=== PATIENT | female | born 1955 | race Caucasian/White ===

== ENCOUNTER 2018-08-02 18:51 | Emergency (ER) | payer BC ==
[2018-08-02 20:58] LABS: ABSOLUTE EOSINOPHILS # (AUTO) 0.1 10^3/uL (0.0-0.6); ABSOLUTE LYMPHOCYTES (AUTO) 1.9 10^3/uL (0.5-4.7); ABSOLUTE MONOCYTES (AUTO) 0.5 10^3/uL (0.1-1.4); ABSOLUTE NEUT (AUTO) 4.7 10^3/uL (1.7-8.2); BASOPHILS % (AUTO) 0.7 % (0-2); EOSINOPHILS % (AUTO) 1.5 % (0-6); HEMOGLOBIN 12.8 g/dL (12.0-15.5); LYMPHOCYTES % (AUTO) 25.9 % (13-45); MEAN CORPUSCULAR HEMOGLOBIN 33.7 pg (27.0-33.4); MEAN CORPUSCULAR HGB CONC 34.7 g/dL (32.0-36.0); MEAN CORPUSCULAR VOLUME 97 fl (80-97); MONOCYTES % (AUTO) 6.8 % (3-13); PLATELET COUNT 325 10^3/uL (150-450); RED BLOOD COUNT 3.81 10^6/uL (3.72-5.28); RED CELL DISTRIBUTION WIDTH 13.6 % (11.5-14.0); SEGMENTED NEUTROPHILS % (AUTO) 65.1 % (42-78); TOTAL CELLS COUNTED % (AUTO) 100 %; WHITE BLOOD COUNT 7.3 10^3/uL (4.0-10.5)
[2018-08-02] MEDS ORDERED: LIDOCAINE 5% (700 MG) TRANSDERMAL ADH..PATCH TP ONE (21:14)
[2018-08-02] MEDS ORDERED: ACETAMINOPHEN 325 MG TABLET PO ONE (21:14)
[2018-08-02] MEDS ORDERED: DEXAMETHASONE 4 MG TABLET PO ONE (21:14)
[2018-08-02 21:15] LABS: ANION GAP 7 (5-19); BLOOD UREA NITROGEN 15 mg/dL (7-20); CALCIUM 9.4 mg/dL (8.4-10.2); CARBON DIOXIDE 29 mmol/L (22-30); CHLORIDE 104 mmol/L (98-107); GLUCOSE 105 mg/dL (75-110); SODIUM 140.3 mmol/L (137-145)
[2018-08-02] MEDS ORDERED: ALBUTEROL SULFATE HFA (90 MCG/PUFF) 200 PUFF/8.5 GM MDI IH ONE (21:15)
[2018-08-02] MEDS ORDERED: IPRATROPIUM/ALBUTEROL 0.5-2.5 MG/3 ML AMPUL NEB ONE (21:15)
--- NOTE | 2018-08-02 21:19 | RADIOLOGY REPORT (SQ) ---
XR CHEST 2 VIEWS HISTORY: Shortness of breath. COMPARISON: None. FINDINGS: Cardiomediastinal silhouette is unremarkable. The lungs are clear. No pleural effusion or pneumothorax is identified. No acute osseous findings. IMPRESSION: No acute cardiopulmonary abnormality.
--- NOTE | 2018-08-02 21:20 | ER Document Report ---
ED General - General Chief Complaint: Shortness Of Breath Stated Complaint: SHORTNESS OF BREATH Time Seen by Provider: 08/02/18 20:36 Notes: Patient is a 62-year-old female with a past medical history of hypertension who presents with complaints of approximately 1 week of cough as well as 2-3 days of right sided chest wall pain. She states that she fell while coming inside carrying groceries 2 days ago landing directly on her right chest. She states that since that time she has had a throbbing, aching, constant pain to her right lower ribs that is worsened whenever she last, coughs or takes a deep breath. She states this does feel similar to when she has had rib fractures in the past. She states that she feels like her breathing has become more labored and that she has developed some shortness of breath since the injury due to it feeling like she is unable to take a full deep breath secondary to pain. She has not had any hemoptysis. She denies any unilateral leg swelling. No history of DVT or pulmonary embolus. She does not have a diagnosis of COPD or asthma. She has tried Tylenol for improvement without relief. She has not seen her general doctor regarding today's concerns. She denies trauma to the location during her fall. TRAVEL OUTSIDE OF THE [place] IN LAST 30 DAYS: No - Related Data Allergies/Adverse Reactions: bacitracin [Bacitracin] Allergy (Intermediate, Verified 03/25/15 07:57) Sulfa (Sulfonamide Antibiotics) Allergy (Intermediate, Verified 03/25/15 07:57) Past Medical History - General Information source: Patient - Social History Smoking Status: Current Every Day Smoker Frequency of alcohol use: None Drug Abuse: None Lives with: Family Family History: Reviewed & Not Pertinent Patient has suicidal ideation: No Patient has homicidal ideation: No - Past Medical History Cardiac Medical History: Reports: Hx Hypercholesterolemia, Hx Hypertension Renal/ Medical History: Denies: Hx Peritoneal Dialysis Musculoskeletal Medical History: Reports Hx Arthritis, Reports Hx Musculoskeletal Deformity, Reports Hx Musculoskeletal Trauma Skin Medical History: Reports Hx Cellulitis Traumatic Medical History: Reports: Hx Fractures - femur Past Surgical History: Reports: Hx Cholecystectomy, Hx Hysterectomy, Hx Orthopedic Surgery - left hip, left knee, femur - Immunizations Immunizations up to date: Yes Hx Diphtheria, Pertussis, Tetanus Vaccination: Yes Review of Systems - Review of Systems Notes: Constitutional: Negative for fever. HENT: Negative for sore throat. Eyes: Negative for visual changes. Cardiovascular: Negative for chest pain. Respiratory: Positive for shortness of breath and cough Gastrointestinal: Negative for abdominal pain, vomiting or diarrhea. Genitourinary: Negative for dysuria. Musculoskeletal: Positive for right lower rib injury Skin: Negative for rash. Neurological: Negative for headaches, weakness or numbness. 10 point ROS negative except as marked above and in HPI. Physical Exam - Vital signs Vitals: Temp Pulse Resp BP Pulse Ox 97.6 F 87 18 138/85 H 97 08/02/18 19:07 08/02/18 19:07 08/02/18 19:07 08/02/18 19:07 08/02/18 19:07 Interpretation: Normal Notes: PHYSICAL EXAMINATION: GENERAL: Appears moderately uncomfortable but in no acute distress HEAD: Atraumatic, normocephalic. EYES: Pupils equal round and reactive to light, extraocular movements intact, sclera anicteric, conjunctiva are normal. ENT: nares patent, oropharynx clear without exudates. Moist mucous membranes. NECK: Normal range of motion, supple without lymphadenopathy LUNGS: Breath sounds clear to auscultation bilaterally and equal. Faint scattered respiratory wheezing throughout. Chest wall: Pain on palpation of the right lower ribs without deformity or swelling to the area HEART: Regular rate and rhythm without murmurs ABDOMEN: Soft, nontender, normoactive bowel sounds. No guarding, no rebound. No masses appreciated. EXTREMITIES: Normal range of motion, no pitting or edema. No cyanosis. NEUROLOGICAL: No focal neurological deficits. Moves all extremities spontaneously and on command. PSYCH: Normal mood, normal affect. SKIN: Warm, Dry, normal turgor, no rashes or lesions noted. Course - Re-evaluation Re-evalutation: 08/02/18 21:16 Patient presents with right lower rib pain with coughing and movement after she fell on the area 2 days ago and directly struck her chest. She has also been coughing for the past 1 week with what appears to be an acute bronchitis. Concern for possible underlying rib fractures versus rib contusions. X-ray without evidence of pneumothorax. Patient does not have clinical symptoms to suggest an acute pneumonia. She does have scattered wheezing on exam and has been treated with a duo nebulizer. She has also been started with dexamethasone here in the emergency department. Lidoderm patch and Tylenol to the lower ribs for pain control. Incentive spirometer already available to the patient at home. Laboratories otherwise unremarkable. Clinical history and exam are not consistent with an acute pulmonary embolus or ACS. Patient is appropriate for outpatient management of her likely viral induced persistent cough as well as her chest wall discomfort from falling and bruising her ribs. At this time will discharge with return precautions and follow-up recommendations. Verbal discharge instructions given a the bedside and opportunity for questions given. Medication warnings reviewed. Patient is in agreement with this plan and has verbalized understanding of return precautions and the need for primary care follow-up in the next 24-72 hours. - Vital Signs Vital signs: Temp Pulse Resp BP Pulse Ox 97.6 F 87 20 144/90 H 98 08/02/18 19:07 08/02/18 19:07 08/02/18 21:55 08/02/18 21:55 08/02/18 21:55 - Laboratory Result Diagrams: 08/02/18 20:49 08/02/18 20:49 Laboratory results interpreted by me: 08/02/18 20:49 MCH 33.7 H - Diagnostic Test Radiology reviewed: Image reviewed, Reports reviewed Radiology results interpreted by me: 08/02/18 21:17 Chest x-ray: No apparent rib fractures or acute infiltrates. No pneumothorax. - EKG Interpretation by Me Additional EKG results interpreted by me: 08/02/18 21:20 Sinus rhythm. Rate 84. No ST elevations or depressions. QTC is 450. Discharge - Discharge Clinical Impression: Right-sided chest wall pain, Rib injury, Persistent cough, Bronchitis Condition: Good Disposition: HOME, SELF-CARE Additional Instructions: Your chest wall pain is due to bruising of your ribs. This pain can last for up to 6 weeks. It is very important that you continue to take purposeful deep breaths. For your pain: Continue to take Tylenol 1000 mg every 6 hours. Use morphine for breakthrough pain not controlled by Tylenol. Apply lidocaine patches as prescribed. Please use the incentive spirometer hourly while awake at home. Follow-up with your primary care doctor in the next 2-3 days. Return to the emergency department immediately if you develop worsening shortness of breath, increased pain, begin coughing blood, pass out, or have any other symptoms that are worrisome to you. You were seen for symptoms most consistent with bronchitis. This can take up to 12 weeks to fully resolve. This is generally due to a viral infection. Please follow-up with your primary doctor in the next 2-3 days. Return if you develop worsening cough, vomiting, fever >100.4, pass out, begin coughing blood, or have any other symptoms that are concerning to you. Please use the medications prescribed today as directed. Prescriptions: Morphine Sulfate [Morphine Ir 15 mg Tablet] 15 mg PO Q6HP PRN #8 tablet PRN Reason: Lidocaine [Lidoderm 5% (700 mg) Transdermal Patch] 1 patch TP DAILY #30 adh..patch Referrals: LUIS ARMANDO JOSEPH MD [Primary Care Provider] - Follow up as needed
[2018-08-02 21:58] VITALS: BP 144/90
--- NOTE | 2018-08-03 13:59 | EKG REPORT ---
SEVERITY:- ABNORMAL ECG - SINUS RHYTHM LVH BY VOLTAGE PROBABLE INFARCT, AGE INDETERMINATE : Confirmed by: Yasmine Alex MD 03-Aug-2018 13:58:51
== END 2018-08-02 22:22 | disposition home or self-care (01) ==
LOC: ER 18:51
DX: S20.20XA Contusion of thorax, unspecified, initial encounter (principal); W19.XXXA Unspecified fall, initial encounter; Y93.89 Activity, other specified; J40 Bronchitis, not specified as acute or chronic; R07.89 Other chest pain; R06.2 Wheezing; R06.02 Shortness of breath; R05 Cough; I10 Essential (primary) hypertension; F17.200 Nicotine dependence, unspecified, uncomplicated; Z88.1 Allergy status to other antibiotic agents; Z88.2 Allergy status to sulfonamides
CPT/HCPCS: 93005; 94640; 99285; 36415; 85025; 80048; 84484; 71046; 93010; J3490; J7620

== ENCOUNTER → 2018-10-24 | Outpatient (CLI) | payer BC ==
--- NOTE | 2018-10-24 13:01 | RADIOLOGY REPORT (SQ) ---
EXAM DESCRIPTION: CT SINUSES FOR ENT COMPLETED DATE/TIME: 10/24/2018 7:53 am REASON FOR STUDY: CHRONIC SINUSITIS (J32.9) J32.9 CHRONIC SINUSITIS, UNSPECIFIED COMPARISON: None. TECHNIQUE: Noncontrast scanning through the paranasal sinuses using bone algorithm. Reconstructed MPR images reviewed. All images stored on PACS. Images acquired for image guided surgery. All CT scanners at this facility use dose modulation, iterative reconstruction, and/or weight based d osing when appropriate to reduce radiation dose to as low as reasonably achievable (ALARA). [facility]: Dose Right [facility]: CareDose [facility]: Dose Right [facility]: Teradose 4D [facility]: Paradigm RADIATION DOSE: 47 mGy. FINDINGS: NASAL PASSAGES: Clear. No polyps or masses. OSTEOMEATAL UNITS AND NASOFRONTAL DUCTS: On the right side, the maxillary sinus outlet occluded by mu cous membrane thickening. The left maxillary outlet is patent. No Misty cells. MAXILLARY SINUSES: Right maxillary sinus and maxillary outlet are occluded by fluid/ mucous membrane thickening. Left maxillary sinus and maxillary sinus outlet are unremarkable. ETHMOID SINUSES: Well pneumatized. Mild mucous membrane thickening in the anterior ethmoid air cells bilaterally SPHENOID SINUSES: Well-pneumatized and clear. No sphenoethmoid air cells or pneumatized pterygoid rec ess. No pneumatized dorsal sella. FRONTAL SINUSES: Well pneumatized. Mucous membrane thickening in the posterior aspect left frontal s inus axial image 116. MASTOID AIR CELLS: Clear. ORBITS: Normal and symmetrical. NASAL SEPTUM: Midline. No nasal septal spurs. TEMPOROMANDIBULAR JOINTS: Moderate osteoarthritis at both temporomandibular joints right greater than left TURBINATES: Partially pneumatized right middle turbinate. MUCOPERIOSTEAL THICKENING: No. MUCOCELE: No. OTHER: No other significant findings. IMPRESSION: Right maxillary sinusitis TECHNICAL DOCUMENTATION: JOB ID: [id number] Quality ID # [id number]: Final reports with documentation of one or more dose reduction techniques (e.g., Au tomated exposure control, adjustment of the mA and/or kV according to patient size, use of iterative reconstruction technique) 2010 [employer]- All Rights Reserved Reading location - IP/workstation name: [email or web address]
== END ==
LOC: RAD 07:07
PROVIDERS: ATTEND Otolaryngology
DX: J32.9 Chronic sinusitis, unspecified (principal)
CPT/HCPCS: 70486

== ENCOUNTER 2018-11-25 09:04 | Day surgery (SDC) | payer BC ==
[~2018-11-25 09:04] MED LIST: CEFAZOLIN 2 GM/D5W RTU 2 GM/50 ML RTUPB IV PRN
[2018-11-25] MEDS ORDERED: OXYMETAZOLINE HCL 0.05% NASAL SPRAY 15 ML BOTTLE ONE (10:19)
[2018-11-25] MEDS ORDERED: BACITRACIN ZINC OINTMENT 15 GM ONE (10:19)
[2018-11-25] MEDS ORDERED: COCAINE HCL 4% TOPICAL SOLN 4 ML ONE (10:19)
[2018-11-25] MEDS ORDERED: LIDOCAINE 2%/EPINEPHRINE INJ 1.7 ML CARTRIDGE ONE ×2 (10:20→11:29)
[2018-11-25] MEDS ORDERED: PROPOFOL INJ 200 MG/20 ML VIAL IV ONE (10:22)
[2018-11-25] MEDS ORDERED: DEXAMETHASONE SOD PHOS INJ 10 MG/1 ML VIAL ONE (10:22)
[2018-11-25] MEDS ORDERED: MIDAZOLAM 2 MG/2 ML INJ ONE (10:22)
[2018-11-25] MEDS ORDERED: FENTANYL CITRATE INJ/PF 100 MCG/2 ML AMPUL ONE ×2 (10:22→10:24)
[2018-11-25] MEDS ORDERED: ONDANSETRON HCL INJ/PF 4 MG/2 ML SDV ONE (10:22)
[2018-11-25] MEDS ORDERED: SUCCINYLCHOLINE CHLORIDE INJ 200 MG/10 ML VIAL ONE (10:23)
[2018-11-25] MEDS ORDERED: ROCURONIUM BROMIDE INJ 50 MG/5 ML VIAL IV ONE (10:23)
[2018-11-25] MEDS ORDERED: LIDOCAINE 2%/EPINEPHRINE INJ 20 ML VIAL ONE (11:29)
[2018-11-25] MEDS ORDERED: TRIAMCINOLONE ACETONIDE INJ 40 MG/1 ML VIAL ONE (12:11)
[2018-11-25] MEDS: TRIAMCINOLONE ACETONIDE INJ 40 MG/1 ML VIAL ONE ×2 (12:24)
--- NOTE | 2018-11-25 13:23 | SURGICARE OPERATIVE REPORT E ---
[facility] NAME: ONIEL AVILA AGE: 62Y DATE OF SURGERY: 11/25/2018 ROOM: HISTORY: A 62-year-old female with a history of chronic sinusitis, mainly involving the right side. A CT scan was obtained which showed total opacification of the right maxillary sinus and anterior ethmoid. Patient presents today for endoscopic sinus surgery. Informed consent was obtained from the patient. PREOPERATIVE DIAGNOSIS: CHRONIC SINUSITIS. POSTOPERATIVE DIAGNOSIS: CHRONIC SINUSITIS. OPERATION: 1. Nasal endoscopy. 2. Right maxillary antrostomy. 3. Right anterior ethmoidectomy. SURGEON: PEG BRINK MD ANESTHESIA: General via endotracheal intubation. DESCRIPTION OF PROCEDURE: After receiving informed consent from the patient, she was taken to the operating room and placed supine on the operating room table. After successful induction intubation by anesthesia, pledgets soaked with 4% cocaine placed into each nasal cavity for approximately 5 minutes, after which time they were withdrawn. The nasal septum along with the inferior turbinates and middle turbinate on that right side was injected with 2% Xylocaine and 100,000 epinephrine. Pledgets were replaced. Patient was prepped and draped in a sterile fashion. The image guidance system was used and calibrated to the patient and was found to be functioning normally. Next, the pledgets were withdrawn from the right nasal cavity and under endoscopic guidance the lateral nasal wall and middle turbinate were injected with 2% Xylocaine and 100,000 epinephrine. Next, using a [place] elevator, the middle turbinate was medialized. The uncinate process was identified. A seeker was placed into the infundibulum. The uncinate process was displaced anteriorly. A Sickle knife was used to then make an incision into the uncinate process. This was removed with the Blakesley forceps and microdebrider. Next, using the olive tip, entrance was gained into the maxillary sinus. Mucopurulent material was suctioned from the maxillary sinus. Back biters were used to extend the antrostomy anterior and then the antrostomy was widened in an inferior posterior direction using the microdebrider. The maxillary sinus mucosa was edematous and erythematous. Next, using Blakesley forceps an anterior ethmoidectomy was performed. The maxillary sinus was then irrigated out with a vortex irrigation. It was then viewed and all of the mucopurulent was removed from that maxillary sinus. Next, the Sickle knife was used to freshen the edges on the medial surface of the middle turbinate and also on the septum to allow that middle turbinate to adhere to the nasal septum. An absorbable pack was then placed into the middle meatus and this was infiltrated with approximately 2 mL of Kenalog 40. The patient was then given back to Anesthesia who successfully extubated the patient without any complications. Patient then transferred to Postanesthesia Care unit in stable condition, spontaneous respirations, no complications. ESTIMATED BLOOD LOSS: About 20 mL. FLUIDS: About 500 mL crystalloid. DICTATING PHYSICIAN: PEG BRINK M.D. [id number] PHY#: [id number] ID: [id number] JOB#: [id number] ACCT: [id number] cc:PEG BRINK MD >
== END 2018-11-25 13:37 | disposition home or self-care (01) ==
LOC: SC 09:04
PROVIDERS: ATTEND Otolaryngology
DX: J32.0 Chronic maxillary sinusitis (principal); J32.9 Chronic sinusitis, unspecified; K21.9 Gastro-esophageal reflux disease without esophagitis; I10 Essential (primary) hypertension; E66.9 Obesity, unspecified; Z68.38 Body mass index [BMI] 38.0-38.9, adult; Z88.2 Allergy status to sulfonamides; Z79.899 Other long term (current) drug therapy
CPT/HCPCS: 31256; 31254; C1751; J2250; J3490 ×6; J3010; J0330; J2405; J2704; J1100; J0690; 160

== ENCOUNTER 2019-01-29 21:47 | Inpatient (IN) | payer BC ==
[2019-01-29] MEDS ORDERED: ALBUTEROL SULFATE 0.083% NEB 2.5 MG/3 ML AMPUL NEB ONE ×2 (21:54→23:38)
--- NOTE | 2019-01-29 22:06 | ER Document Report ---
ED General - General Stated Complaint: SHORTNESS OF BREATH Time Seen by Provider: 01/29/19 21:53 Cannot obtain history due to: Unstable vital signs Notes: Patient is a 63-year-old female with past medical history of hypertension and hyperlipidemia who presents with shortness of breath. History is limited secondary to the degree of patient's distress at time of presentation as she is unable to speak in a full sentence. EMS does report that apparently the patient was diagnosed with bronchitis by her primary care doctor within the past several days, started on prednisone and an albuterol MDI inhaler but states that her symptoms continue to get progressively worse. The patient states that her shortness of breath has been getting progressively worse and today without clear trigger became even worse. Nothing seemed to relieve her symptoms. No obvious exacerbating factors. Denies ever been diagnosed with asthma or COPD in the past and has never had shortness of breath in this manner in the past. Denies chest pain. States that she does have some bilateral lower rib pain from coughing so much. This is described as a stabbing, constant, aching discomfort severe in nature worsened by coughing. TRAVEL OUTSIDE OF THE [place] IN LAST 30 DAYS: No - Related Data Allergies/Adverse Reactions: bacitracin [Bacitracin] Allergy (Intermediate, Verified 03/25/15 07:57) Sulfa (Sulfonamide Antibiotics) Allergy (Intermediate, Verified 03/25/15 07:57) Past Medical History - General Information source: Patient - Social History Smoking Status: Never Smoker Frequency of alcohol use: None Drug Abuse: None Lives with: Alone Family History: Reviewed & Not Pertinent - Past Medical History Cardiac Medical History: Reports: Hx Hypercholesterolemia, Hx Hypertension Denies: Hx Heart Attack Pulmonary Medical History: Denies: Hx Asthma Neurological Medical History: Denies: Hx Cerebrovascular Accident, Hx Seizures Renal/ Medical History: Denies: Hx Peritoneal Dialysis GI Medical History: Denies: Hx Hepatitis, Hx Hiatal Hernia, Hx Ulcer Musculoskeletal Medical History: Reports Hx Arthritis, Reports Hx Musculoskeletal Deformity, Reports Hx Musculoskeletal Trauma Skin Medical History: Reports Hx Cellulitis Traumatic Medical History: Reports: Hx Fractures - femur Infectious Medical History: Denies: Hx Hepatitis Past Surgical History: Reports: Hx Cholecystectomy, Hx Hysterectomy, Hx Orthopedic Surgery - left hip, left knee, femur. Denies: Hx Mastectomy, Hx Open Heart Surgery, Hx Pacemaker - Immunizations Immunizations up to date: Yes Hx Diphtheria, Pertussis, Tetanus Vaccination: Yes Review of Systems - Review of Systems Notes: Constitutional: Negative for fever. HENT: Negative for sore throat. Eyes: Negative for visual changes. Cardiovascular: Negative for chest pain. Respiratory: Positive for shortness of breath. Gastrointestinal: Negative for abdominal pain, vomiting or diarrhea. Genitourinary: Negative for dysuria. Musculoskeletal: Negative for back pain. Skin: Negative for rash. Neurological: Negative for headaches, weakness or numbness. 10 point ROS negative except as marked above and in HPI. Physical Exam - Vital signs Vitals: Pulse Ox 88 L 01/29/19 21:54 Interpretation: Tachycardic, Hypoxic, Tachypneic Notes: PHYSICAL EXAMINATION: GENERAL: Appears unwell, very uncomfortable and in moderate to severe respiratory distress HEAD: Atraumatic, normocephalic. EYES: Pupils equal round and reactive to light, extraocular movements intact, sclera anicteric, conjunctiva are normal. ENT: nares patent, oropharynx clear without exudates. Mildly dry mucous membranes. NECK: Normal range of motion, supple without lymphadenopathy LUNGS: Moderate to severe respiratory distress, coarse expiratory wheezing t hroughout with diminished air movement throughout. Intercostal retractions present. HEART: Regular tachycardia without murmurs ABDOMEN: Soft, nontender, normoactive bowel sounds. No guarding, no rebound. No masses appreciated. EXTREMITIES: Normal range of motion, no pitting or edema. No cyanosis. NEUROLOGICAL: No focal neurological deficits. Moves all extremities spontaneously and on command. PSYCH: Anxious but appropriate to situation SKIN: Warm, Dry, normal turgor, no rashes or lesions noted. Course - Re-evaluation Re-evalutation: 01/29/19 21:56 Documentation is delayed as I was at the patient's bedside immediately upon her arrival discussing with EMS. The patient arrives in severe respiratory distress, unable to speak in full sentences secondary to her degree of respiratory distress. Coarse expiratory wheezing in all lung roberto with globally diminished air movement throughout. The patient apparently was diagnosed with a bronchitis with associated reactive airway disease by her primary care provider started on albuterol MDI and prednisone but has not had improvement of her symptoms. Patient will immediately placed on BiPAP. She has already received magnesium, Solu-Medrol, and continuous nebulizers in route to the hospital. The patient will be reassessed at regular intervals. Chest x-ray and labs are pending. 01/29/19 22:29 Patient's work of breathing is much improved on BiPAP. Able to speak in at least 4-5 word sentences now. Continues to have some coarse wheezing throughout. Will continue to reassess at regular intervals. 01/30/19 00:11 Patient overall work of breathing remains significantly improved. Patient does however have tenderness in her left lower ribs with coughing and has requested something for pain. Toradol and morphine will be administered as needed. Labs and chest x-ray unremarkable. I discussed with Dr. Vidal who is accepted patient for admission. - Vital Signs Vital signs: Temp Pulse Resp BP Pulse Ox 18 134/84 H 94 01/30/19 02:01 01/30/19 02:01 01/30/19 02:01 - Laboratory Result Diagrams: 01/29/19 22:04 01/29/19 22:04 Laboratory results interpreted by me: 01/29/19 01/29/19 22:04 22:04 WBC 18.3 H Plt Count 522 H Seg Neuts % (Manual) 79 H Band Neutrophils % 1 L Lymphocytes % (Manual) 8 L Metamyelocytes % 1 H Abs Neuts (Manual) 14.8 H Abs Monocytes (Manual) 1.6 H Glucose 165 H - Diagnostic Test Radiology reviewed: Image reviewed, Reports reviewed Radiology results interpreted by me: 01/30/19 00:11 Chest x-ray: No acute infiltrate or pneumothorax - EKG Interpretation by Me Additional EKG results interpreted by me: 01/30/19 00:12 Sinus tachycardia, rate 125, LVH. No ST elevations or depressions. QTC is 433. Critical Care Note - Critical Care Note Total time excluding time spent on procedures (mins): 40 Comments: Critical care time spent obtaining history from patient or surrogate, discussions with consultants, development of treatment plan with patient or surrogate, evaluation of patient's response to treatment, examination of patient, ordering and performing treatments and interventions, ordering and review of laboratory studies, re-evaluation of patient's condition, ordering and review of radiographic studies and review of old charts Discharge - Discharge Clinical Impression: Shortness of breath, Respiratory distress, Wheezing Condition: Fair Disposition: ADMITTED INPATIENT Admitting Provider: Young (Hospitalist) Unit Admitted: Telemetry
[2019-01-29 22:20] LABS: HEMATOCRIT 41.7 % (36.0-47.0); HEMOGLOBIN 14.2 g/dL (12.0-15.5); MEAN CORPUSCULAR HEMOGLOBIN 32.6 pg (27.0-33.4); MEAN CORPUSCULAR HGB CONC 33.9 g/dL (32.0-36.0); MEAN CORPUSCULAR VOLUME 96 fl (80-97); RED BLOOD COUNT 4.34 10^6/uL (3.72-5.28); RED CELL DISTRIBUTION WIDTH 13.9 % (11.5-14.0); WHITE BLOOD COUNT 18.3 10^3/uL (4.0-10.5)
--- NOTE | 2019-01-29 22:21 | RADIOLOGY REPORT (SQ) ---
EXAM DESCRIPTION: XR CHEST 1 VIEW COMPLETED DATE/TME: 01/29/2019 21:53 CLINICAL HISTORY: 63 years, Female, sob, distress Comparison: None FINDINGS: No focal lung consolidation. No pleural effusion. No pneumothorax. Cardiac and mediastinal silhouette is unremarkable. No acute osseous abnormality. Soft tissues are unremarkable. IMPRESSION: No acute findings. No focal lung consolidation.
[2019-01-29 22:36] LABS: ABSOLUTE LYMPHOCYTES# (MANUAL) 1.8 10^3/uL (0.5-4.7); ABSOLUTE MONOCYTES # (MANUAL) 1.6 10^3/uL (0.1-1.4); ABSOLUTE NEUTROPHILS# (MANUAL) 14.8 10^3/uL (1.7-8.2); BAND NEUTROPHILS % (MANUAL) 1 % (3-5); BASOPHILS % (MANUAL) 0 % (0-2); EOSINOPHILS % (MANUAL) 0 % (0-6); LYMPHOCYTES % (MANUAL) 8 % (13-45); METAMYELOCYTES % (MANUAL) 1 % (0); MONOCYTES % (MANUAL) 9 % (3-13); SEGMENTED NEUTROPHILS % (MAN) 79 % (42-78); TOTAL CELLS COUNTED 100
[2019-01-29 22:38] LABS: PLATELET CLUMPS PRESENT; PLATELET COMMENT INCREASED; PLATELET COUNT 522 10^3/uL (150-450); POLYCHROMASIA SLIGHT
[2019-01-29 22:47] LABS: ANION GAP 13 (5-19); BLOOD UREA NITROGEN 20 mg/dL (7-20); CALCIUM 10.2 mg/dL (8.4-10.2); CARBON DIOXIDE 25 mmol/L (22-30); CHLORIDE 102 mmol/L (98-107); GLUCOSE 165 mg/dL (75-110); POTASSIUM 3.7 mmol/L (3.6-5.0)
[2019-01-29] MEDS ORDERED: MORPHINE SULFATE 10 MG/ML INJ ONE (23:23)
[2019-01-29] MEDS ORDERED: KETOROLAC TROMETHAMINE INJ/PF 30 MG/1 ML SDV ONE (23:23)
[2019-01-29] MEDS ORDERED: LIDOCAINE 5% (700 MG) TRANSDERMAL ADH..PATCH TP ONE (23:24)
[2019-01-29] MEDS ORDERED: NORMAL SALINE 1000 ML 1,000 ML IV ONE (23:24)
[2019-01-29] MEDS ORDERED: KETOROLAC TROMETHAMINE INJ/PF 30 MG/1 ML SDV IV ONE (23:24)
[2019-01-29] MEDS: MORPHINE SULFATE 10 MG/ML INJ IV PRN (23:33)
[2019-01-30] MEDS ORDERED: HYDROCODONE BIT/HOMATROPINE SYRUP 5 ML UDCUP PO PRN (00:11)
[2019-01-30] MEDS ORDERED: HYDRALAZINE HCL INJ/PF 20 MG/1 ML SDV IV PRN (00:11)
[2019-01-30] MEDS ORDERED: FLUTICASONE NASAL SPRAY 50 MCG/SPRY 120 SPRAY/16 GM NASL ONE (00:30)
[2019-01-30] MEDS ORDERED: FLUTICASONE NASAL SPRAY 50 MCG/SPRY 120 SPRAY/16 GM ONE (00:59)
[2019-01-30] MEDS: CHLORPHENIRAMINE MALEATE 4 MG TABLET PO SCH ×4 (01:02→18:18)
[2019-01-30] MEDS: LEVOFLOXACIN 750 MG/D5W RTU 750 MG/150 ML RTUPB IV SCH ×2 (01:03→21:26)
[2019-01-30 03:18] LABS: HEMATOCRIT 36.5 % (36.0-47.0); HEMOGLOBIN 12.3 g/dL (12.0-15.5); MEAN CORPUSCULAR HEMOGLOBIN 32.6 pg (27.0-33.4); MEAN CORPUSCULAR HGB CONC 33.6 g/dL (32.0-36.0); MEAN CORPUSCULAR VOLUME 97 fl (80-97); PLATELET COUNT 368 10^3/uL (150-450); RED BLOOD COUNT 3.77 10^6/uL (3.72-5.28); RED CELL DISTRIBUTION WIDTH 13.9 % (11.5-14.0); WHITE BLOOD COUNT 16.3 10^3/uL (4.0-10.5)
[2019-01-30 03:36] LABS: ABSOLUTE LYMPHOCYTES# (MANUAL) 0.2 10^3/uL (0.5-4.7); ABSOLUTE MONOCYTES # (MANUAL) 0.8 10^3/uL (0.1-1.4); ABSOLUTE NEUTROPHILS# (MANUAL) 15.3 10^3/uL (1.7-8.2); BASOPHILS % (MANUAL) 0 % (0-2); EOSINOPHILS % (MANUAL) 0 % (0-6); LYMPHOCYTES % (MANUAL) 1 % (13-45); METAMYELOCYTES % (MANUAL) 1 % (0); MONOCYTES % (MANUAL) 5 % (3-13); SEGMENTED NEUTROPHILS % (MAN) 93 % (42-78); TOTAL CELLS COUNTED 100
[2019-01-30 03:37] LABS: PLATELET COMMENT ADEQUATE; RBC MORPHOLOGY COMMENT NORMO-CYTIC/CHROMIC
[2019-01-30] MEDS: IPRATROPIUM/ALBUTEROL 0.5-2.5 MG/3 ML AMPUL NEB SCH ×4 (03:59→19:36)
[2019-01-30] MEDS ORDERED: CHLORPHENIRAMINE MALEATE 4 MG TABLET ONE (05:25)
[2019-01-30] MEDS ORDERED: IPRATROPIUM/ALBUTEROL 0.5-2.5 MG/3 ML AMPUL NEB PRN (05:52)
--- NOTE | 2019-01-30 05:52 | PDOC H&P ---
History of Present Illness Admission Date/PCP: 01/30/19 01:22 LUIS ARMANDO JOSEPH MD Patient complains of: Shortness of breath and nonproductive cough History of Present Illness: ONIEL AVILA is a 63 year old female with a past medical history of hypertension, dyslipidemia, morbid obesity, GERD, tobacco and recent sinus surgery November 25, 2018. Patient presents with 7 days of rhinorrhea, postnasal drip, nonproductive cough and shortness of breath prompting evaluation by her primary care provider she is placed on a prednisone taper and azithromycin. Without significant improvement symptoms significantly worsen prompting her to seek evaluation emergency room where she is found to be diaphoretic with accessory muscles and retractions, hypoxia of 88% on room air. She started on BiPAP receiving albuterol, Atrovent, with minimal improvement she is referred to the hospitalist for admission. She denies fever, facial pain but admits to previous history. Past Medical History Cardiac Medical History: Reports: Hyperlipidema, Hypertension Denies: Myocardial Infarction Pulmonary Medical History: Reports: Bronchitis, Other - Sinusitis Denies: Asthma EENT Medical History: Reports: Other - Chronic sinusitis Neurological Medical History: Denies: Seizures Endocrine Medical History: Reports: None Renal/ Medical History: Reports: None Malignancy Medical History: Reports: None GI Medical History: Reports: Gastroesophageal Reflux Disease Denies: Hepatitis, Hiatal Hernia Musculoskeltal Medical History: Reports: Arthritis Psychiatric Medical History: Reports: Tobacco Dependency Traumatic Medical History: Reports: None Hematology: Reports: None Denies: Anemia, Sickle Cell Disease Infectious Medical History: Reports: None Past Surgical History Past Surgical History: Reports: Cholecystectomy, Hysterectomy, Orthopedic Surgery - left hip, left knee, femur Denies: Amputation, Mastectomy, Pacemaker Social History Information Source: Patient, Emergency Med Personnel, [facility] Records Lives with: Alone Smoking Status: Current Every Day Smoker Frequency of Alcohol Use: None Drugs: None - Advance Directive Resuscitation Status: Full Code Family History Family History: COPD Parental Family History Reviewed: Yes Children Family History Reviewed: Yes Sibling(s) Family History Reviewed.: Yes Medication/Allergy Home Medications: Amlodipine Besylate [Norvasc 5 mg Tablet] 10 mg PO DAILY 02/02/13 Cetirizine HCl [Zyrtec 10 mg Tablet] 10 mg PO DAILY 02/02/13 Duloxetine HCl [Cymbalta] 60 mg PO DAILY 02/02/13 Meloxicam [Mobic 15 Mg Tablet] 15 mg PO DAILY 02/02/13 Calcium Carb, Citrate/Vit D3 [Calcium + D3 ER Tablet] 1 each PO DAILY 11/19/18 Gabapentin [Neurontin 300 mg Capsule] 300 mg PO QHS 11/19/18 Omeprazole 20 mg PO DAILY 11/19/18 Hydrocodone/Acetaminophen [Vicodin 5-300 mg Tablet] 1 each PO Q6 PRN 11/25/18 Levofloxacin [Levaquin 500 mg Tablet] 500 mg PO DAILY 11/25/18 Allergies/Adverse Reactions: bacitracin [Bacitracin] Allergy (Intermediate, Verified 03/25/15 07:57) Sulfa (Sulfonamide Antibiotics) Allergy (Intermediate, Verified 03/25/15 07:57) Review of Systems Constitutional: ABSENT: chills, fever(s), headache(s), weight gain, weight loss Eyes: ABSENT: visual disturbances Ears: ABSENT: hearing changes Cardiovascular: ABSENT: chest pain, dyspnea on exertion, edema, orthropnea, palpitations Respiratory: ABSENT: cough, hemoptysis Gastrointestinal: ABSENT: abdominal pain, constipation, diarrhea, hematemesis, hematochezia, nausea, vomiting Genitourinary: ABSENT: dysuria, hematuria Musculoskeletal: ABSENT: joint swelling Integumentary: ABSENT: rash, wounds Neurological: ABSENT: abnormal gait, abnormal speech, confusion, dizziness, focal weakness, syncope Psychiatric: ABSENT: anxiety, depression, homidical ideation, suicidal ideation Endocrine: ABSENT: cold intolerance, heat intolerance, polydipsia, polyuria Hematologic/Lymphatic: ABSENT: easy bleeding, easy bruising Physical Exam Vital Signs: Temp Pulse Resp BP Pulse Ox 97.5 F 111 H 28 H 164/87 H 97 01/30/19 05:17 01/30/19 05:17 01/30/19 05:17 01/30/19 05:17 01/30/19 05:17 Intake & Output 01/28/19 01/29/19 01/30/19 11:59 11:59 11:59 Intake Total 1150 Balance 1150 Weight 94.7 kg General appearance: PRESENT: cooperative, mild distress, morbidly obese Head exam: PRESENT: atraumatic, normocephalic Eye exam: PRESENT: conjunctiva pink, EOMI, PERRLA. ABSENT: scleral icterus Ear exam: PRESENT: normal external ear exam Mouth exam: PRESENT: moist, tongue midline Throat exam: ABSENT: tonsillar erythema, tonsillar exudate Neck exam: ABSENT: carotid bruit, JVD, lymphadenopathy, thyromegaly Respiratory exam: PRESENT: accessory muscle use, clear to auscultation ashvin, crackles, prolonged expiratory phas, rales, retraction, tachypnea, wheezes. ABSENT: rhonchi Cardiovascular exam: PRESENT: RRR. ABSENT: diastolic murmur, rubs, systolic mur mur Pulses: PRESENT: normal dorsalis pedis pul Vascular exam: PRESENT: normal capillary refill GI/Abdominal exam: PRESENT: normal bowel sounds, soft. ABSENT: distended, guarding, mass, organolmegaly, rebound, tenderness Rectal exam: PRESENT: deferred Extremities exam: PRESENT: full ROM. ABSENT: calf tenderness, clubbing, pedal edema Neurological exam: PRESENT: alert, awake, oriented to person, oriented to place, oriented to time, oriented to situation, CN II-XII grossly intact. ABSENT: motor sensory deficit Psychiatric exam: PRESENT: appropriate affect, normal mood. ABSENT: homicidal ideation, suicidal ideation Skin exam: PRESENT: dry, intact, warm. ABSENT: cyanosis, rash Results Laboratory Results: 01/30/19 02:41 01/29/19 22:04 01/29/19 01/29/19 01/30/19 22:04 22:04 02:41 WBC 18.3 H 16.3 H RBC 4.34 3.77 Hgb 14.2 12.3 Hct 41.7 36.5 MCV 96 97 MCH 32.6 32.6 MCHC 33.9 33.6 RDW 13.9 13.9 Plt Count 522 H 368 Seg Neutrophils % Not Reportable Not Reportable Lymphocytes % Not Reportable Not Reportable Monocytes % Not Reportable Not Reportable Eosinophils % Not Reportable Not Reportable Basophils % Not Reportable Not Reportable Absolute Neutrophils Not Reportable Not Reportable Absolute Lymphocytes Not Reportable Not Reportable Absolute Monocytes Not Reportable Not Reportable Absolute Eosinophils Not Reportable Not Reportable Absolute Basophils Not Reportable Not Reportable Sodium 140.0 Potassium 3.7 Chloride 102 Carbon Dioxide 25 Anion Gap 13 BUN 20 Creatinine 0.81 Est GFR ( Amer) > 60 Est GFR (Non-Af Amer) > 60 Glucose 165 H Calcium 10.2 01/29/19 01/29/19 22:04 22:04 Troponin I < 0.012 NT-Pro-B Natriuret Pep 250 Impressions: Chest X-Ray 01/29/19 21:53 IMPRESSION: No acute findings. No focal lung consolidation. Assessment and Plan - Diagnosis (1) COPD with exacerbation Is this a current diagnosis for this admission?: Yes Plan: Without formal diagnosis, active long-term smoker, exam suggestive, obtain PFTs., BiPAP, supplemental oxygen, albuterol, Atrovent, flutter valve ordered (2) Acute bronchitis Is this a current diagnosis for this admission?: Yes Plan: Empiric antibiotics, prednisone, chlorpheniramine and Flonase. (3) Acute sinusitis Is this a current diagnosis for this admission?: Yes Plan: Flonase and chlorpheniramine. Consider ENT consult with Dr. Zamorano (4) Morbid obesity Is this a current diagnosis for this admission?: Yes Plan: Morbid obesity will evaluate for metabolic cause with evaluation of thyroid function and dietitian consultation (5) Tobacco abuse Is this a current diagnosis for this admission?: Yes Plan: Tobacco Dependence patient received tobacco cessation counseling and offered nicotine replacement options - Time Time Spent with patient: 25-34 minutes - Inpatient Certification Medical Necessity: Need Close Monitoring Due to Risk of Patient Decompensation
[2019-01-30] MEDS: MORPHINE SULFATE 10 MG/ML INJ IV PRN ×2 (06:06→08:15)
[2019-01-30] MEDS: HEPARIN SOD (PORCINE) 5,000 UNIT/ML 1 ML SYRINGE SUBCUT SCH ×3 (06:07→21:26)
[2019-01-30] MEDS ORDERED: PREDNISONE 20 MG TABLET PO ONE (06:15)
[2019-01-30] MEDS: GUAIFENESIN SYRP 200 MG/10 ML UDC PO PRN ×2 (08:15→14:50)
[2019-01-30] MEDS ORDERED: OXYCODONE-ACETAMINOPHEN 5-325 MG TABLET PO PRN ×2 (10:38)
--- NOTE | 2019-01-30 10:57 | EKG REPORT ---
SEVERITY:- ABNORMAL ECG - SINUS TACHYCARDIA LEFT VENTRICULAR HYPERTROPHY : Confirmed by: Robbie Chapa 30-Jan-2019 10:56:59
[2019-01-30] MEDS: CALCIUM CARBONATE 250 MG/VITAMIN D3 125 UNIT TABLET PO SCH (11:05)
[2019-01-30] MEDS: AMLODIPINE BESYLATE 10 MG TABLET PO SCH (11:05)
[2019-01-30] MEDS: DULOXETINE HCL 30 MG CAPSULE.DR PO SCH (11:05)
[2019-01-30] MEDS: FLUTICASONE NASAL SPRAY 50 MCG/SPRY 120 SPRAY/16 GM NASL SCH ×2 (11:05→21:25)
[2019-01-30] MEDS: LIDOCAINE 5% (700 MG) TRANSDERMAL ADH..PATCH TP SCH (11:06)
[2019-01-30] MEDS: PANTOPRAZOLE SODIUM 20 MG TABLET.DR PO SCH (11:06)
[2019-01-30] MEDS: KETOROLAC TROMETHAMINE INJ/PF 30 MG/1 ML SDV IV PRN (14:50)
[2019-01-30] MEDS ORDERED: METHYLPREDNISOLONE INJ 125 MG/2 ML SDV IV ONE (14:52)
[2019-01-30] MEDS ORDERED: MAGNESIUM SULFATE/D5W 1 GM/100 ML RTUPB IV ONE (14:54)
[2019-01-30] MEDS: METHYLPREDNISOLONE INJ 40 MG/1 ML SDV IV SCH ×2 (14:57→21:26)
[2019-01-30 16:47] LABS: ARTERIAL BLOOD H2CO3 1.24 mmol/L (1.05-1.35); ARTERIAL BLOOD O2 SATURATION 94.2 % (94-98); ARTERIAL BLOOD PCO2 41.3 mmHg (35-45); ARTERIAL BLOOD PH 7.38 (7.35-7.45); ARTERIAL BLOOD PO2 71.5 mmHg (80-100); ARTERIAL BLOOD TOTAL CO2 25.3 mmol/L (21-25)
[2019-01-30 16:48] LABS: ARTERIAL BLOOD FIO2 40%
[2019-01-30] MEDS ORDERED: PREDNISONE 20 MG TABLET PO SCH (18:00)
--- NOTE | 2019-01-30 18:12 | RADIOLOGY REPORT (SQ) ---
EXAM DESCRIPTION: CT CHEST WITHOUT COMPLETED DATE/TIME: 01/30/2019 5:53 pm REASON FOR STUDY: dyspnea, hypoxia COMPARISON: None. TECHNIQUE: CT scan performed of the chest without intravenous contrast. Images reviewed with lung, soft tissue and bone windows. Reconstructed coronal and sagittal MPR images reviewed. All images st ored on PACS. All CT scanners at this facility use dose modulation, iterative reconstruction, and/or weight based d osing when appropriate to reduce radiation dose to as low as reasonably achievable (ALARA). [facility]: Dose Right [facility]: CareDose [facility]: Dose Right [facility]: Teradose 4D [facility]: [employer] RADIATION DOSE: CT Rad equipment meets quality standard of care and radiation dose reduction techniq ues were employed. CTDIvol: 19.2 mGy. DLP: 704 mGy-cm. mGy. LIMITATIONS: No technical limitations. FINDINGS: LUNGS AND PLEURA: Small left pleural effusion. Consolidation left lower lobe. Reticulono dular opacities along the right major fissure. HILAR AND MEDIASTINAL STRUCTURES: No identified masses or abnormal nodes. No obvious aneurysm. HEART AND VASCULAR STRUCTURES: No aneurysm. No pericardial effusion. UPPER ABDOMEN: Nothing acute. THYROID AND OTHER SOFT TISSUES: No masses. No adenopathy. BONES: Nothing acute. HARDWARE: None in the chest. OTHER: No other significant findings. IMPRESSION: 1. Left lower lobe pneumonia. 2. Reticulonodular infiltrate in the right lung which will also need follow-up to exclude underlying malignancy. TECHNICAL DOCUMENTATION: JOB ID: [id number] Quality ID # [id number]: Final reports with documentation of one or more dose reduction techniques (e.g., Au tomated exposure control, adjustment of the mA and/or kV according to patient size, use of iterative reconstruction technique) 2010 [employer] All Rights Reserved Reading location - IP[facility]workstation [facility]
[2019-01-30] MEDS: HYDROMORPHONE HCL INJ/PF 2 MG/ML AMPULE IV PRN (19:49)
[2019-01-30] MEDS: GABAPENTIN 300 MG CAPSULE PO SCH (21:28)
[2019-01-31] MEDS: GUAIFENESIN/CODEINE PHOS 100-10 MG/ 5 ML UDC PO PRN ×4 (00:44→22:43)
[2019-01-31] MEDS: HYDROMORPHONE HCL INJ/PF 2 MG/ML AMPULE IV PRN ×4 (00:44→19:41)
[2019-01-31] MEDS: IPRATROPIUM/ALBUTEROL 0.5-2.5 MG/3 ML AMPUL NEB SCH ×4 (02:32→19:20)
[2019-01-31] MEDS: KETOROLAC TROMETHAMINE INJ/PF 30 MG/1 ML SDV IV PRN ×4 (04:38→22:43)
[2019-01-31 05:27] LABS: HEMATOCRIT 35.2 % (36.0-47.0); HEMOGLOBIN 11.9 g/dL (12.0-15.5); MEAN CORPUSCULAR HEMOGLOBIN 32.7 pg (27.0-33.4); MEAN CORPUSCULAR HGB CONC 33.7 g/dL (32.0-36.0); MEAN CORPUSCULAR VOLUME 97 fl (80-97); PLATELET COUNT 341 10^3/uL (150-450); RED BLOOD COUNT 3.62 10^6/uL (3.72-5.28); RED CELL DISTRIBUTION WIDTH 14.1 % (11.5-14.0); WHITE BLOOD COUNT 16.5 10^3/uL (4.0-10.5)
[2019-01-31] MEDS: HEPARIN SOD (PORCINE) 5,000 UNIT/ML 1 ML SYRINGE SUBCUT SCH ×3 (05:47→22:33)
[2019-01-31] MEDS: METHYLPREDNISOLONE INJ 40 MG/1 ML SDV IV SCH ×3 (05:48→22:34)
[2019-01-31 05:55] LABS: ABSOLUTE LYMPHOCYTES# (MANUAL) 0.5 10^3/uL (0.5-4.7); ABSOLUTE MONOCYTES # (MANUAL) 0.8 10^3/uL (0.1-1.4); ABSOLUTE NEUTROPHILS# (MANUAL) 15.2 10^3/uL (1.7-8.2); BAND NEUTROPHILS % (MANUAL) 2 % (3-5); BASOPHILS % (MANUAL) 0 % (0-2); EOSINOPHILS % (MANUAL) 0 % (0-6); LYMPHOCYTES % (MANUAL) 3 % (13-45); MONOCYTES % (MANUAL) 5 % (3-13); SEGMENTED NEUTROPHILS % (MAN) 90 % (42-78); TOTAL CELLS COUNTED 100
[2019-01-31 05:57] LABS: ANISOCYTOSIS SLIGHT; OVALOCYTES SLIGHT; PLATELET COMMENT ADEQUATE; POIKILOCYTOSIS SLIGHT; POLYCHROMASIA SLIGHT; TOXIC GRANULATION 1+; TOXIC VACUOLATION PRESENT
[2019-01-31] MEDS ORDERED: (PENDING PHARMACY ID) (Calcium Carbonate/Vitamin D3 [Calcium 500 + Vit D Caplet] 1 TAB) PO SCH (10:00)
[2019-01-31] MEDS: IPRATROPIUM/ALBUTEROL 0.5-2.5 MG/3 ML AMPUL NEB PRN (10:05)
[2019-01-31] MEDS: LIDOCAINE 5% (700 MG) TRANSDERMAL ADH..PATCH TP SCH (10:11)
[2019-01-31] MEDS: PANTOPRAZOLE SODIUM 20 MG TABLET.DR PO SCH (10:12)
[2019-01-31] MEDS: FLUTICASONE NASAL SPRAY 50 MCG/SPRY 120 SPRAY/16 GM NASL SCH ×2 (10:12→22:34)
[2019-01-31] MEDS: CETIRIZINE 10 MG TABLET PO SCH (10:12)
[2019-01-31] MEDS: AMLODIPINE BESYLATE 10 MG TABLET PO SCH (10:12)
[2019-01-31] MEDS: DULOXETINE HCL 30 MG CAPSULE.DR PO SCH (10:12)
[2019-01-31] MEDS: CALCIUM CARBONATE 250 MG/VITAMIN D3 125 UNIT TABLET PO SCH (10:12)
--- NOTE | 2019-01-31 14:39 | PDOC PROGRESS REPORT ---
Subjective Progress Note for:: 01/31/19 Subjective:: ONIEL AVILA is a 63 year old female with a past medical history of hypertension, dyslipidemia, morbid obesity, GERD, tobacco and recent sinus surgery November 25, 2018 admitted 01/30/19 for COPD exacerbation. Patient was seen on morning rounds with family members present. She was found to be resting comfortably on BiPAP. She reports that she is feeling much better today; has achieved adequate pain control of her left lateral chest wall discomfort. She reports that she feels that she is breathing easier on BiPAP today notes decrease in cough. She denies fever, chills, palpitations, orthopnea, abdominal pain, nausea vomiting diarrhea. She has no questions or concerns at this time. No concerns per nursing. Reason For Visit: COPD EXACERBATION ACUTE SINUSITIS Physical Exam Vital Signs: Temp Pulse Resp BP Pulse Ox 97.5 F 91 17 139/78 H 93 01/31/19 12:00 01/31/19 13:36 01/31/19 13:36 01/31/19 12:00 01/31/19 13:36 Intake & Output 01/30/19 01/31/19 02/01/19 06:59 06:59 06:59 Intake Total 1250 1310 355 Balance 1250 1310 355 Weight 94.7 kg 94.1 kg General appearance: PRESENT: no acute distress, cooperative, morbidly obese, well-developed, well-nourished Head exam: PRESENT: atraumatic, normocephalic Eye exam: PRESENT: conjunctiva pink, EOMI, PERRLA. ABSENT: scleral icterus Ear exam: PRESENT: normal external ear exam Mouth exam: PRESENT: moist, tongue midline Neck exam: ABSENT: carotid bruit, JVD, lymphadenopathy, thyromegaly Respiratory exam: PRESENT: decreased breath sounds - Bibasilar, prolonged expiratory phas, rhonchi - Improved from yesterday, symmetrical, tachypnea, unlabored, other - BiPAP. ABSENT: rales, wheezes Cardiovascular exam: PRESENT: RRR, +S1, +S2. ABSENT: diastolic murmur, rubs, systolic murmur Pulses: PRESENT: normal dorsalis pedis pul Vascular exam: PRESENT: normal capillary refill GI/Abdominal exam: PRESENT: normal bowel sounds, soft. ABSENT: distended, guarding, mass, organolmegaly, rebound, tenderness Rectal exam: PRESENT: deferred Extremities exam: PRESENT: full ROM. ABSENT: calf tenderness, clubbing, pedal edema Neurological exam: PRESENT: alert, awake, oriented to person, oriented to place, oriented to time, oriented to situation, CN II-XII grossly intact. ABSENT: motor sensory deficit Psychiatric exam: PRESENT: appropriate affect, normal mood. ABSENT: homicidal ideation, suicidal ideation Skin exam: PRESENT: dry, intact, warm. ABSENT: cyanosis, rash Results Laboratory Results: 01/31/19 05:03 01/29/19 22:04 01/30/19 01/30/19 01/31/19 15:34 16:30 05:03 WBC 16.5 H RBC 3.62 L Hgb 11.9 L Hct 35.2 L MCV 97 MCH 32.7 MCHC 33.7 RDW 14.1 H Plt Count 341 Seg Neutrophils % Not Reportable Lymphocytes % Not Reportable Monocytes % Not Reportable Eosinophils % Not Reportable Basophils % Not Reportable Absolute Neutrophils Not Reportable Absolute Lymphocytes Not Reportable Absolute Monocytes Not Reportable Absolute Eosinophils Not Reportable Absolute Basophils Not Reportable Carbonic Acid 1.24 HCO3/H2CO3 Ratio 19:1 ABG pH 7.38 ABG pCO2 41.3 ABG pO2 71.5 L ABG HCO3 24.0 ABG O2 Saturation 94.2 ABG Base Excess -1.0 FiO2 40% Lactic Acid 1.4 01/29/19 01/29/19 22:04 22:04 Troponin I < 0.012 NT-Pro-B Natriuret Pep 250 Impressions: Chest X-Ray 01/29/19 21:53 IMPRESSION: No acute findings. No focal lung consolidation. Chest CT 01/30/19 00:00 IMPRESSION: 1. Left lower lobe pneumonia. 2. Reticulonodular infiltrate in the right lung which will also need follow-up to exclude underlying malignancy. Assessment and Plan - Diagnosis (1) Acute respiratory failure with hypoxia Is this a current diagnosis for this admission?: Yes Plan: Multifactorial secondary to LLL PNA and COPD exacerbation. Patient is admitted to the medical floor on continuous telemetry. Supplemental oxygen and BiPAP as needed to maintain saturations >89% Scheduled and as needed nebulizer treatments. IV Solumedrol Mucinex twice daily Empirically placed on IV Levaquin Incentive spirometer and flutter valve to bedside. (2) Pneumonia Qualifiers: Pneumonia type: due to unspecified organism Laterality: left Lung location: lower lobe of lung Qualified Code(s): J18.1 - Lobar pneumonia, unspecified organism Is this a current diagnosis for this admission?: Yes Plan: Community acquired pneumonia. Blood cultures (1/4 bottles) growing gram positive cocci in pairs. Sputum culture pending. Continue IV Levaquin. Remaining management as above. (3) COPD with exacerbation Is this a current diagnosis for this admission?: Yes Plan: Without formal diagnosis, active long-term smoker. PFT pending. Remaining management as above. (4) Abnormal chest CT Is this a current diagnosis for this admission?: Yes Plan: CT Chest demonstrated LLL PNA and Right reticulonodular infilitrate; recommends follow-up to exclude underlying malignancy. Patient sees Dr. Ewing; recommend follow up appointment after discharge for further evaluation. (5) Morbid obesity Is this a current diagnosis for this admission?: Yes Plan: Lifestyle modification and dietary discretion is advised. (6) Tobacco abuse Is this a current diagnosis for this admission?: Yes Plan: Smoking cessation encouraged; nicotine replacement therapies are provided. - Time Time Spent with patient: 25-34 minutes Anticipated discharge: Home
[2019-01-31] MEDS: GUAIFENESIN SYRP 200 MG/10 ML UDC PO PRN (19:41)
[2019-01-31] MEDS: GABAPENTIN 300 MG CAPSULE PO SCH (22:34)
[2019-01-31] MEDS: LEVOFLOXACIN 750 MG/D5W RTU 750 MG/150 ML RTUPB IV SCH (22:34)
[2019-02-01] MEDS: IPRATROPIUM/ALBUTEROL 0.5-2.5 MG/3 ML AMPUL NEB SCH ×4 (01:47→23:48)
[2019-02-01] MEDS: HYDROMORPHONE HCL INJ/PF 2 MG/ML AMPULE IV PRN ×3 (04:17→22:38)
[2019-02-01 05:05] LABS: HEMATOCRIT 33.1 % (36.0-47.0); HEMOGLOBIN 11.1 g/dL (12.0-15.5); MEAN CORPUSCULAR HEMOGLOBIN 32.7 pg (27.0-33.4); MEAN CORPUSCULAR HGB CONC 33.7 g/dL (32.0-36.0); MEAN CORPUSCULAR VOLUME 97 fl (80-97); PLATELET COUNT 315 10^3/uL (150-450); RED BLOOD COUNT 3.41 10^6/uL (3.72-5.28); RED CELL DISTRIBUTION WIDTH 13.8 % (11.5-14.0); WHITE BLOOD COUNT 14.9 10^3/uL (4.0-10.5)
[2019-02-01 05:26] LABS: ANION GAP 10 (5-19); BLOOD UREA NITROGEN 29 mg/dL (7-20); CALCIUM 10.3 mg/dL (8.4-10.2); CARBON DIOXIDE 25 mmol/L (22-30); CHLORIDE 104 mmol/L (98-107); GLUCOSE 169 mg/dL (75-110); POTASSIUM 4.9 mmol/L (3.6-5.0); SODIUM 138.6 mmol/L (137-145)
[2019-02-01] MEDS: HEPARIN SOD (PORCINE) 5,000 UNIT/ML 1 ML SYRINGE SUBCUT SCH ×3 (05:55→22:18)
[2019-02-01] MEDS: METHYLPREDNISOLONE INJ 40 MG/1 ML SDV IV SCH ×3 (05:55→22:18)
[2019-02-01] MEDS ORDERED: VANCOMYCIN HCL 0 MG in DEXTROSE 5%-WATER 250 ML IV NR (08:15)
[2019-02-01] MEDS: CETIRIZINE 10 MG TABLET PO SCH (09:25)
[2019-02-01] MEDS: CALCIUM CARBONATE 250 MG/VITAMIN D3 125 UNIT TABLET PO SCH (09:25)
[2019-02-01] MEDS: PANTOPRAZOLE SODIUM 20 MG TABLET.DR PO SCH (09:25)
[2019-02-01] MEDS: FLUTICASONE NASAL SPRAY 50 MCG/SPRY 120 SPRAY/16 GM NASL SCH ×2 (09:25→22:20)
[2019-02-01] MEDS: AMLODIPINE BESYLATE 10 MG TABLET PO SCH (09:25)
[2019-02-01] MEDS: DULOXETINE HCL 30 MG CAPSULE.DR PO SCH (09:25)
[2019-02-01] MEDS: NICOTINE 21 MG/24 HR PATCH.TD24 TD SCH (09:26)
[2019-02-01] MEDS: LIDOCAINE 5% (700 MG) TRANSDERMAL ADH..PATCH TP SCH (09:26)
[2019-02-01] MEDS: VANCOMYCIN HCL 750 MG in DEXTROSE 5%-WATER 250 ML IV SCH ×2 (10:13→22:19)
[2019-02-01] MEDS: KETOROLAC TROMETHAMINE INJ/PF 30 MG/1 ML SDV IV PRN ×2 (11:02→18:06)
--- NOTE | 2019-02-01 11:15 | PDOC PROGRESS REPORT ---
Subjective Progress Note for:: 02/01/19 Subjective:: ONIEL AVILA is a 63 year old female with a past medical history of hypertension, dyslipidemia, morbid obesity, GERD, tobacco and recent sinus surgery November 25, 2018 admitted 01/30/19 for COPD exacerbation. Patient was seen on morning rounds with family members present. She was found to be resting comfortably on NC and appears significantly improved. She reports that she is feeling well today with adequate pain control, decreased cough, and decreased dyspnea. She states she is hoping to tolerate longer periods off BiPAP today. She denies fever, chills, palpitations, orthopnea, abdominal pain, nausea vomiting diarrhea. She has no questions or concerns at this time. No concerns per nursing. Reason For Visit: COPD EXACERBATION ACUTE SINUSITIS Physical Exam Vital Signs: Temp Pulse Resp BP Pulse Ox 97.5 F 98 20 127/68 H 89 L 02/01/19 03:15 02/01/19 08:07 02/01/19 08:07 02/01/19 03:15 02/01/19 08:07 Intake & Output 01/31/19 02/01/19 02/02/19 06:59 06:59 06:59 Intake Total 1310 1145 Balance 1310 1145 Weight 94.1 kg 94.1 kg General appearance: PRESENT: no acute distress, cooperative, morbidly obese, well-developed, well-nourished Head exam: PRESENT: atraumatic, normocephalic Eye exam: PRESENT: conjunctiva pink, EOMI, PERRLA. ABSENT: scleral icterus Ear exam: PRESENT: normal external ear exam Mouth exam: PRESENT: moist, tongue midline Neck exam: ABSENT: carotid bruit, JVD, lymphadenopathy, thyromegaly Respiratory exam: PRESENT: prolonged expiratory phas, rhonchi, symmetrical, unlabored, wheezes, other - Oxygen via nasal cannula. ABSENT: rales Cardiovascular exam: PRESENT: RRR, +S1, +S2. ABSENT: diastolic murmur, rubs, systolic murmur Pulses: PRESENT: normal dorsalis pedis pul Vascular exam: PRESENT: normal capillary refill GI/Abdominal exam: PRESENT: normal bowel sounds, soft, other - Rotund abdomen; exam limited secondary to body habitus. ABSENT: distended, guarding, mass, organolmegaly, rebound, tenderness Rectal exam: PRESENT: deferred Extremities exam: PRESENT: full ROM. ABSENT: calf tenderness, clubbing, pedal edema Neurological exam: PRESENT: alert, awake, oriented to person, oriented to place, oriented to time, oriented to situation, CN II-XII grossly intact. ABSENT: motor sensory deficit Psychiatric exam: PRESENT: appropriate affect, normal mood. ABSENT: homicidal ideation, suicidal ideation Skin exam: PRESENT: dry, intact, warm. ABSENT: cyanosis, rash Results Laboratory Results: 02/01/19 04:02 02/01/19 04:02 02/01/19 02/01/19 04:02 04:02 WBC 14.9 H RBC 3.41 L Hgb 11.1 L Hct 33.1 L MCV 97 MCH 32.7 MCHC 33.7 RDW 13.8 Plt Count 315 Sodium 138.6 Potassium 4.9 Chloride 104 Carbon Dioxide 25 Anion Gap 10 BUN 29 H Creatinine 0.83 Est GFR ( Amer) > 60 Est GFR (Non-Af Amer) > 60 Glucose 169 H Calcium 10.3 H 01/30/19 02:41 Blood Blood Culture - Final Mrsa (Meth Resis Staph Aureus) 01/29/19 01/29/19 22:04 22:04 Troponin I < 0.012 NT-Pro-B Natriuret Pep 250 Impressions: Chest X-Ray 01/29/19 21:53 IMPRESSION: No acute findings. No focal lung consolidation. Chest CT 01/30/19 00:00 IMPRESSION: 1. Left lower lobe pneumonia. 2. Reticulonodular infiltrate in the right lung which will also need follow-up to exclude underlying malignancy. Assessment and Plan - Diagnosis (1) Acute respiratory failure with hypoxia Is this a current diagnosis for this admission?: Yes Plan: Multifactorial secondary to LLL PNA and COPD exacerbation. Patient is admitted to the medical floor on continuous telemetry. Supplemental oxygen and BiPAP as needed to maintain saturations >89% Scheduled and as needed nebulizer treatments; decrease scheduled frequency today. IV Solumedrol Mucinex twice daily Empirically placed on IV Levaquin (day #3) have added vancomycin secondary to MRSA bacteremia. Incentive spirometer and flutter valve to bedside. (2) Pneumonia Qualifiers: Pneumonia type: due to methicillin-resistant Staphylococcus aureus (MRSA) Laterality: left Lung location: lower lobe of lung Qualified Code(s): J15.212 - Pneumonia due to Methicillin resistant Staphylococcus aureus Is this a current diagnosis for this admission?: Yes Plan: Left lower lobe pneumonia and reticulonodular infiltrate to the right lung. Blood cultures positive for MRSA and one bottle and growing gram-positive cocci in second set. Sputum culture pending. Continue IV Levaquin, start IV vancomycin for treatment of MRSA. Remaining management as above. (3) COPD with exacerbation Is this a current diagnosis for this admission?: Yes Plan: Without formal diagnosis, active long-term smoker. PFT pending. Remaining management as above. (4) Abnormal chest CT Is this a current diagnosis for this admission?: Yes Plan: CT Chest demonstrated LLL PNA and Right reticulonodular infilitrate; recommends follow-up to exclude underlying malignancy. Patient sees Dr. Ewing; recommend follow up appointment after discharge for further evaluation. (5) Morbid obesity Is this a current diagnosis for this admission?: Yes Plan: Lifestyle modification and dietary discretion is advised. (6) Tobacco abuse Is this a current diagnosis for this admission?: Yes Plan: Smoking cessation encouraged; nicotine replacement therapies are provided. (7) MRSA bacteremia Is this a current diagnosis for this admission?: Yes Plan: Blood cultures (01/30/2019) positive for MRSA in one bottle and growing gram- positive cocci in second set. Repeat blood cultures (02/02/19) pending. Patient denies history of endocarditis or artificial heart valves. However, she does report multiple orthopedic hardware devices (left hip, knee, ankle and right femoral shoshana). She reports that in 2012 she required replacement of femoral shoshana and 8 weeks of IV antibiotics for unknown bacterial infection. Anticipate patient will require minimum 4 weeks of IV antibiotics. We will obtain echocardiogram to evaluate for endocarditis. We will consult infectious disease for guidance. - Time Time Spent with patient: 25-34 minutes Medications reviewed and adjusted accordingly: Yes Anticipated discharge: Home with Homehealth
[2019-02-01] MEDS ORDERED: PIPERACILLIN SODIUM/TAZOBACTAM 3.375 GM in NORMAL SALINE 100 ML IV SCH (12:00)
[2019-02-01] MEDS: IPRATROPIUM/ALBUTEROL 0.5-2.5 MG/3 ML AMPUL NEB PRN (13:35)
[2019-02-01] MEDS: GUAIFENESIN/CODEINE PHOS 100-10 MG/ 5 ML UDC PO PRN ×2 (14:50→22:38)
[2019-02-01] MEDS: GABAPENTIN 300 MG CAPSULE PO SCH (22:18)
[2019-02-02] MEDS: KETOROLAC TROMETHAMINE INJ/PF 30 MG/1 ML SDV IV PRN ×3 (05:06→21:35)
[2019-02-02] MEDS: GUAIFENESIN/CODEINE PHOS 100-10 MG/ 5 ML UDC PO PRN ×4 (05:07→23:41)
[2019-02-02] MEDS: HEPARIN SOD (PORCINE) 5,000 UNIT/ML 1 ML SYRINGE SUBCUT SCH ×3 (05:07→21:35)
[2019-02-02] MEDS: METHYLPREDNISOLONE INJ 40 MG/1 ML SDV IV SCH ×3 (05:07→21:43)
[2019-02-02] MEDS: PANTOPRAZOLE SODIUM 20 MG TABLET.DR PO SCH (05:37)
[2019-02-02 05:44] LABS: HEMATOCRIT 34.1 % (36.0-47.0); HEMOGLOBIN 11.6 g/dL (12.0-15.5); MEAN CORPUSCULAR HEMOGLOBIN 32.9 pg (27.0-33.4); MEAN CORPUSCULAR VOLUME 97 fl (80-97); PLATELET COUNT 338 10^3/uL (150-450); RED BLOOD COUNT 3.52 10^6/uL (3.72-5.28); RED CELL DISTRIBUTION WIDTH 13.6 % (11.5-14.0); WHITE BLOOD COUNT 14.7 10^3/uL (4.0-10.5)
[2019-02-02 06:08] LABS: ANION GAP 10 (5-19); BLOOD UREA NITROGEN 28 mg/dL (7-20); CALCIUM 10.1 mg/dL (8.4-10.2); CARBON DIOXIDE 25 mmol/L (22-30); CHLORIDE 103 mmol/L (98-107); GLUCOSE 193 mg/dL (75-110); POTASSIUM 4.9 mmol/L (3.6-5.0); SODIUM 138.4 mmol/L (137-145)
[2019-02-02] MEDS: IPRATROPIUM/ALBUTEROL 0.5-2.5 MG/3 ML AMPUL NEB SCH ×3 (07:38→23:56)
[2019-02-02] MEDS: HYDROMORPHONE HCL INJ/PF 2 MG/ML AMPULE IV PRN ×5 (08:30→23:41)
[2019-02-02] MEDS ORDERED: MAGNESIUM HYDROXIDE SUSP 30 ML UDCUP PO PRN (09:49)
[2019-02-02] MEDS: POLYETHYLENE GLYCOL 3350 POWDER 17 GM/1 PACKET PO SCH (10:47)
[2019-02-02] MEDS: DULOXETINE HCL 30 MG CAPSULE.DR PO SCH (10:47)
[2019-02-02] MEDS: NICOTINE 21 MG/24 HR PATCH.TD24 TD SCH (10:47)
[2019-02-02] MEDS: CETIRIZINE 10 MG TABLET PO SCH (10:48)
[2019-02-02] MEDS: AMLODIPINE BESYLATE 10 MG TABLET PO SCH (10:48)
[2019-02-02] MEDS: CALCIUM CARBONATE 250 MG/VITAMIN D3 125 UNIT TABLET PO SCH (10:48)
[2019-02-02] MEDS: LIDOCAINE 5% (700 MG) TRANSDERMAL ADH..PATCH TP SCH (10:49)
[2019-02-02] MEDS: LEVOFLOXACIN 750 MG/D5W RTU 750 MG/150 ML RTUPB IV SCH (10:49)
[2019-02-02] MEDS: FLUTICASONE NASAL SPRAY 50 MCG/SPRY 120 SPRAY/16 GM NASL SCH ×2 (10:49→21:34)
[2019-02-02] MEDS: VANCOMYCIN HCL 750 MG in DEXTROSE 5%-WATER 250 ML IV SCH ×2 (13:53→21:35)
--- NOTE | 2019-02-02 17:46 | PDOC PROGRESS REPORT ---
Subjective Progress Note for:: 02/02/19 Subjective:: ONIEL AVILA is a 63 year old female with a past medical history of hypertension, dyslipidemia, morbid obesity, GERD, tobacco and recent sinus surgery November 25, 2018 admitted 01/30/19 for COPD exacerbation. Patient was seen on morning rounds. She was found to be resting comfortably on NC. She reports that she is feeling well today with adequate pain control, decreased cough, and decreased dyspnea. She denies fever, chills, palpitations, orthopnea, abdominal pain, nausea vomiting diarrhea. She has no questions or concerns at this time. No concerns per nursing. Reason For Visit: COPD EXACERBATION ACUTE SINUSITIS Physical Exam Vital Signs: Temp Pulse Resp BP Pulse Ox 98.4 F 86 12 162/90 H 93 02/02/19 02:00 02/02/19 16:00 02/02/19 16:00 02/02/19 02:00 02/02/19 16:00 Intake & Output 02/01/19 02/02/19 02/03/19 06:59 06:59 06:59 Intake Total 1145 1378 237 Balance 1145 1378 237 Weight 94.1 kg 94 kg General appearance: PRESENT: no acute distress, cooperative, obese, well- developed, well-nourished Head exam: PRESENT: atraumatic, normocephalic Eye exam: PRESENT: conjunctiva pink, EOMI, PERRLA. ABSENT: scleral icterus Ear exam: PRESENT: normal external ear exam Mouth exam: PRESENT: moist, tongue midline Neck exam: ABSENT: carotid bruit, JVD, lymphadenopathy, thyromegaly Respiratory exam: PRESENT: clear to auscultation ashvin, symmetrical, unlabored, other - Supplemental oxygen via NC. ABSENT: rales, rhonchi, wheezes Cardiovascular exam: PRESENT: RRR, +S1, +S2. ABSENT: diastolic murmur, rubs, systolic murmur Pulses: PRESENT: normal dorsalis pedis pul Vascular exam: PRESENT: normal capillary refill GI/Abdominal exam: PRESENT: normal bowel sounds, soft, other - Rotund. ABSENT: distended, guarding, mass, organolmegaly, rebound, tenderness Rectal exam: PRESENT: deferred Extremities exam: PRESENT: full ROM. ABSENT: calf tenderness, clubbing, pedal edema Neurological exam: PRESENT: alert, awake, oriented to person, oriented to place, oriented to time, oriented to situation, CN II-XII grossly intact. ABSENT: motor sensory deficit Psychiatric exam: PRESENT: appropriate affect, normal mood. ABSENT: homicidal ideation, suicidal ideation Skin exam: PRESENT: dry, intact, warm. ABSENT: cyanosis, rash Results Laboratory Results: 02/02/19 05:20 02/02/19 05:20 02/02/19 02/02/19 05:20 05:20 WBC 14.7 H RBC 3.52 L Hgb 11.6 L Hct 34.1 L MCV 97 MCH 32.9 MCHC 34.0 RDW 13.6 Plt Count 338 Sodium 138.4 Potassium 4.9 Chloride 103 Carbon Dioxide 25 Anion Gap 10 BUN 28 H Creatinine 0.67 Est GFR ( Amer) > 60 Est GFR (Non-Af Amer) > 60 Glucose 193 H Calcium 10.1 01/29/19 01/29/19 22:04 22:04 Troponin I < 0.012 NT-Pro-B Natriuret Pep 250 Impressions: Chest X-Ray 01/29/19 21:53 IMPRESSION: No acute findings. No focal lung consolidation. Chest CT 01/30/19 00:00 IMPRESSION: 1. Left lower lobe pneumonia. 2. Reticulonodular infiltrate in the right lung which will also need follow-up to exclude underlying malignancy. Assessment and Plan - Diagnosis (1) Acute respiratory failure with hypoxia Is this a current diagnosis for this admission?: Yes Plan: Significantly improved; and maintaining oxygen saturations for periods of time on nasal cannula. Continues to use intermittent BiPAP. Multifactorial secondary to LLL PNA and COPD exacerbation. Patient is admitted to the medical floor on continuous telemetry. Supplemental oxygen and BiPAP as needed to maintain saturations >89% Scheduled and as needed nebulizer treatments IV Solumedrol; have begun weaning Mucinex twice daily Empirically placed on IV Levaquin (day #4) have added vancomycin secondary to MRSA bacteremia. Incentive spirometer and flutter valve to bedside. (2) Pneumonia Qualifiers: Pneumonia type: due to methicillin-resistant Staphylococcus aureus (MRSA) Laterality: left Lung location: lower lobe of lung Qualified Code(s): J15.212 - Pneumonia due to Methicillin resistant Staphylococcus aureus Is this a current diagnosis for this admission?: Yes Plan: Left lower lobe pneumonia and reticulonodular infiltrate to the right lung. Blood cultures positive for MRSA and one bottle and growing gram-positive cocci in second set. Sputum culture pending. Continue IV Levaquin and IV vancomycin for treatment of MRSA. Remaining management as above. (3) COPD with exacerbation Is this a current diagnosis for this admission?: Yes Plan: Without formal diagnosis, active long-term smoker. PFT pending. Remaining management as above. (4) Abnormal chest CT Is this a current diagnosis for this admission?: Yes Plan: CT Chest demonstrated LLL PNA and Right reticulonodular infilitrate; recommends follow-up to exclude underlying malignancy. Patient sees Dr. Ewing; recommend follow up appointment after discharge for further evaluation. (5) Morbid obesity Is this a current diagnosis for this admission?: Yes Plan: Lifestyle modification and dietary discretion is advised. (6) Tobacco abuse Is this a current diagnosis for this admission?: Yes Plan: Smoking cessation encouraged; nicotine replacement therapies are provided. (7) MRSA bacteremia Is this a current diagnosis for this admission?: Yes Plan: Blood cultures (01/30/2019) positive for MRSA in one bottle and growing gram- positive cocci in second set. Repeat blood cultures (02/02/19) pending. Patient denies history of endocarditis or artificial heart valves. However, she does report multiple orthopedic hardware devices (left hip, knee, ankle and right femoral shoshana). She reports that in 2012 she required replacement of femoral shoshana and 8 weeks of IV antibiotics for unknown bacterial infection. Anticipate patient will require minimum 4 weeks of IV antibiotics. We will obtain echocardiogram to evaluate for endocarditis. We will consult infectious disease for guidance. - Time Time Spent with patient: 15-24 minutes Medications reviewed and adjusted accordingly: Yes Anticipated discharge: Home with Homehealth Within: Other - Repeat cultures negative at 72 hours and PICC line placement required prior to discharge.
[2019-02-02] MEDS: GABAPENTIN 300 MG CAPSULE PO SCH (21:35)
[2019-02-02 22:28] LABS: VANCOMYCIN,TROUGH 11.4 ug/mL (5.0-20.0)
[2019-02-03] MEDS: GUAIFENESIN SYRP 200 MG/10 ML UDC PO PRN (02:53)
[2019-02-03] MEDS: KETOROLAC TROMETHAMINE INJ/PF 30 MG/1 ML SDV IV PRN ×3 (03:40→16:30)
[2019-02-03] MEDS: HYDROMORPHONE HCL INJ/PF 2 MG/ML AMPULE IV PRN ×5 (05:43→22:52)
[2019-02-03] MEDS: METHYLPREDNISOLONE INJ 40 MG/1 ML SDV IV SCH (05:43)
[2019-02-03] MEDS: HEPARIN SOD (PORCINE) 5,000 UNIT/ML 1 ML SYRINGE SUBCUT SCH ×2 (05:43→15:23)
[2019-02-03] MEDS: PANTOPRAZOLE SODIUM 20 MG TABLET.DR PO SCH (05:44)
[2019-02-03 06:39] LABS: HEMATOCRIT 32.1 % (36.0-47.0); HEMOGLOBIN 10.8 g/dL (12.0-15.5); MEAN CORPUSCULAR HEMOGLOBIN 32.8 pg (27.0-33.4); MEAN CORPUSCULAR HGB CONC 33.6 g/dL (32.0-36.0); MEAN CORPUSCULAR VOLUME 98 fl (80-97); PLATELET COUNT 282 10^3/uL (150-450); RED BLOOD COUNT 3.29 10^6/uL (3.72-5.28); RED CELL DISTRIBUTION WIDTH 13.5 % (11.5-14.0); WHITE BLOOD COUNT 14.1 10^3/uL (4.0-10.5)
[2019-02-03 06:55] LABS: ANION GAP 10 (5-19); BLOOD UREA NITROGEN 26 mg/dL (7-20); CALCIUM 9.3 mg/dL (8.4-10.2); CARBON DIOXIDE 27 mmol/L (22-30); CHLORIDE 101 mmol/L (98-107); GLUCOSE 178 mg/dL (75-110); POTASSIUM 4.7 mmol/L (3.6-5.0); SODIUM 137.5 mmol/L (137-145)
[2019-02-03] MEDS: IPRATROPIUM/ALBUTEROL 0.5-2.5 MG/3 ML AMPUL NEB SCH ×2 (07:52→15:55)
[2019-02-03] MEDS: LEVOFLOXACIN 750 MG/D5W RTU 750 MG/150 ML RTUPB IV SCH (09:57)
[2019-02-03] MEDS: CALCIUM CARBONATE 250 MG/VITAMIN D3 125 UNIT TABLET PO SCH (09:58)
[2019-02-03] MEDS: DULOXETINE HCL 30 MG CAPSULE.DR PO SCH (09:59)
[2019-02-03] MEDS: CETIRIZINE 10 MG TABLET PO SCH (09:59)
[2019-02-03] MEDS: POLYETHYLENE GLYCOL 3350 POWDER 17 GM/1 PACKET PO SCH (10:00)
[2019-02-03] MEDS: AMLODIPINE BESYLATE 10 MG TABLET PO SCH (10:01)
[2019-02-03] MEDS: GUAIFENESIN/CODEINE PHOS 100-10 MG/ 5 ML UDC PO PRN ×3 (10:01→22:52)
[2019-02-03] MEDS: NICOTINE 21 MG/24 HR PATCH.TD24 TD SCH (10:01)
[2019-02-03] MEDS: FLUTICASONE NASAL SPRAY 50 MCG/SPRY 120 SPRAY/16 GM NASL SCH ×2 (10:02→22:53)
[2019-02-03] MEDS: LIDOCAINE 5% (700 MG) TRANSDERMAL ADH..PATCH TP SCH (10:27)
[2019-02-03] MEDS: VANCOMYCIN HCL 750 MG in DEXTROSE 5%-WATER 250 ML IV SCH (12:58)
--- NOTE | 2019-02-03 13:42 | PDOC PROGRESS REPORT ---
Subjective Progress Note for:: 02/03/19 Subjective:: Patient is new to me. 63 years old male patient was past medical history of hypertension hyperlipidemia gastroesophageal reflux disease and morbid obesity presented with chief complaint of productive cough. Her CT scan shows left lower lobe pneumonia and also she has right reticulonodular infiltrates. While patient is being managed with Levaquin for her pneumonia her blood cultures grew MRSA. Vancomycin was added to her antibiotic regimen. Echocardiogram was done to rule out vegetation but echo has not been read. Dr. Dg vaughn has been consulted for her input. Reason For Visit: COPD EXACERBATION ACUTE SINUSITIS Physical Exam Vital Signs: Temp Pulse Resp BP Pulse Ox 98.6 F 89 16 133/71 H 95 02/03/19 08:00 02/03/19 08:00 02/03/19 08:00 02/03/19 08:00 02/03/19 08:00 Intake & Output 02/02/19 02/03/19 02/04/19 06:59 06:59 06:59 Intake Total 1378 1367 Balance 1378 1367 Weight 94 kg 93.9 kg General appearance: PRESENT: no acute distress Head exam: PRESENT: atraumatic Eye exam: PRESENT: conjunctiva pink Neck exam: ABSENT: carotid bruit, JVD, lymphadenopathy, thyromegaly Respiratory exam: PRESENT: clear to auscultation ashvin. ABSENT: rales, rhonchi, wheezes Cardiovascular exam: PRESENT: RRR. ABSENT: diastolic murmur, rubs, systolic murmur GI/Abdominal exam: PRESENT: normal bowel sounds, soft. ABSENT: distended, guarding, mass, organolmegaly, rebound, tenderness Neurological exam: PRESENT: alert, awake, oriented to person, oriented to place, oriented to time, oriented to situation Results Laboratory Results: 02/03/19 05:40 02/03/19 05:40 02/02/19 02/03/19 02/03/19 21:54 05:40 05:40 WBC 14.1 H RBC 3.29 L Hgb 10.8 L Hct 32.1 L MCV 98 H MCH 32.8 MCHC 33.6 RDW 13.5 Plt Count 282 Sodium 137.5 Potassium 4.7 Chloride 101 Carbon Dioxide 27 Anion Gap 10 BUN 26 H Creatinine 0.78 0.78 Est GFR ( Amer) > 60 > 60 Est GFR (Non-Af Amer) > 60 > 60 Glucose 178 H Calcium 9.3 01/29/19 01/29/19 22:04 22:04 Troponin I < 0.012 NT-Pro-B Natriuret Pep 250 Impressions: Chest X-Ray 01/29/19 21:53 IMPRESSION: No acute findings. No focal lung consolidation. Chest CT 01/30/19 00:00 IMPRESSION: 1. Left lower lobe pneumonia. 2. Reticulonodular infiltrate in the right lung which will also need follow-up to exclude underlying malignancy. Assessment and Plan - Diagnosis (1) MRSA bacteremia Is this a current diagnosis for this admission?: Yes Plan: Continue vancomycin. Follow echo results. Follow-up with Dr. Dg Vaughn's recommendation. (2) Left lower lobe pneumonia Is this a current diagnosis for this admission?: Yes Plan: Continue Levaquin (3) Acute respiratory failure with hypoxia Is this a current diagnosis for this admission?: Yes Plan: Continue bronchodilators and supplemental oxygen. Her Solu-Medrol switched to p.o. prednisone. (4) Abnormal CT of the chest Is this a current diagnosis for this admission?: Yes Plan: Patient needs follow-up CT chest in the coming 3 to 6 months. (5) Morbid obesity with BMI of 40.0-44.9, adult Is this a current diagnosis for this admission?: Yes Plan: Lifestyle modification advised. (6) Tobacco dependence Is this a current diagnosis for this admission?: Yes Plan: Patient encouraged and counseled to quit smoking.
[2019-02-03] MEDS ORDERED: MAGNESIUM CITRATE 296 ML BOTTLE PO ONE (14:00)
--- NOTE | 2019-02-03 15:07 | Progress Note ---
Provider Note Provider Note: ID Consult Note Asked to review patient's chart. Pt not seen or examined. Ms. Hurst is a 63 year old woman with PMH including morbid obesity, GERD, tobacco use, HTN and HLD, who presented with postnasal drip, nonproductive cough and SOB that worsened as an outpatient, prompting her to present to the ED on 01/30/19. PSH also includes several orthopedic surgeries including femoral head replacement on the left and bilateral femoral fixation hardware placement several years ago. on presentation, she was found to be hypoxic, diaphoretic, with accessory muscle use, and retractions. She was afebrile. Her labs included leukocytosis. No murmur was appreciated. Although CXR on 01/29 showed no focal consolidation, CT scan of the chest was read as consistent with LLL pneumonia.One bottle of both sets of blood cultures on presentation grew GPCs in clusters. MRSA was identified as the GPC in one set; the other is pending identification. Repeat blood cultures on 02/02 are negative x 1 day. Impression/Recommendations MRSA bacteremia, complicated. - Community onset, occult source, in a patient with history of prosthetic orthopedic devices/hardware. - Agree with management to date and anticipated duration of therapy. Results of TTE pending currently. - The patient should complete 4 weeks of treatment with IV vancomycin dosed with the assistance of a clinical pharmacist to achieve goal troughs of around 15, assuming that there is no metastatic infection indicated by signs/symptoms on history & exam, TTE does not show any evidence of a vegetation, and repeat blood cx from 02/02 remain negative; the anticipated end date would be 03/02. - Would make sure that the repeat blood cultures are negative for at least 48h prior to placing a PICC line. Dg Vaughn MD [facility] Infectious Diseases pager [phone]
--- NOTE | 2019-02-03 21:11 | XCELERA REPORT ---
[address] [address] Transthoracic Echocardiogram Report Name: ONIEL AVILA Age: 63 yrs Gender: Female : 1955 Patient Status: Inpatient Patient Location: [address] [place] [address] Study Date: 02/01/2019 12:30 PM Height: 60 in Weight: 207 lb BSA: 1.9 m2 Procedure: A two-dimensional transthoracic echocardiogram with color flow and Doppler was performed. Study Quality: Poor. The study was technically difficult with many images being suboptimal in quality. Images were not obtained from all of the standard acoustic windows due to the limited scope of the study. Reason For Study: MRSA bacteremia / Endocarditis History: MRSA bacteremia / Endocarditis. Ordering Physician: BRANDON CRAWFORD Performed By: Jose Loco Interpretation Summary Probaly no stenotic or regurgitant valvular lesions.Not a good study to assess for vegetations / Endocarditis. If clinical suspicion is high , recomend DEEPTI.Probably no pericardial effusion. The left ventricle is grossly normal size. There is normal left ventricular wall thickness. No True apical 2 chamber views obtained.Hence cannot comment on the apical anterior , the basal anterior, the basal inferior and apical inferior donahue.The mid anterior , the mid inferior and the rest of the LV donahue contract normally. . LVEF is normal and is greater than 60% in the limited views. Doppler measurements suggest impaired left ventricular relaxation, which is associated with grade I/IV or mild diastolic dysfunction The right ventricle is not well visualized secondary to technical limitations Right atrium not well visualized secondary to technical limitations The left atrial size is normal. Probaly no stenotic or regurgitant valvular lesions.Not a good study to assess for vegetations / Endocarditis. If clinical suspicion is high , recomend DEEPTI.Probably no pericardial effusion. MMode/2D Measurements & Calculations RVDd: 3.4 cm LVIDd: 5.6 cm FS: 40.2 % Ao root diam: 3.2 cm IVSd: 0.64 cm LVIDs: 3.4 cm EDV(Teich): 156.5 ml Ao root area: 8.1 cm2 LVPWd: 0.62 cm ESV(Teich): 46.6 ml LA dimension: 3.2 cm EF(Teich): 70.2 % LVOT diam: 1.4 cm LVOT area: 1.6 cm2 Doppler Measurements & Calculations MV E max rebecca: MV P1/2t max rebecca: Ao V2 max: LV V1 max P.8 cm/sec 134.4 cm/sec 129.0 cm/sec 2.9 mmHg MV A max rebecca: MV P1/2t: 42.6 msec Ao max PG: LV V1 max: 145.3 cm/sec MVA(P1/2t): 5.2 cm2 6.7 mmHg 85.7 cm/sec MV E/A: 0.87 MV dec slope: CARA(V,D): 1.0 cm2 923.3 cm/sec2 MV dec time: 0.27 sec PA V2 max: MV P1/2t-pr_phl: 107.2 cm/sec 42.6 msec PA max P.6 mmHg Left Ventricle The left ventricle is grossly normal size. There is normal left ventricular wall thickness. No True apical 2 chamber views obtained.Hence cannot comment on the apical anterior , the basal anterior, the basal inferior and apical inferior donahue.The mid anterior , the mid inferior and the rest of the LV donahue contract normally. . LVEF is normal and is greater than 60% in the limited views. Doppler measurements suggest impaired left ventricular relaxation, which is associated with grade I/IV or mild diastolic dysfunction. Right Ventricle The right ventricle is not well visualized secondary to technical limitations. Atria Right atrium not well visualized secondary to technical limitations. The left atrial size is normal. : BRANDON CRAWFORD > Yasmine Alex
[2019-02-03] MEDS: VANCOMYCIN HCL 1,000 MG in DEXTROSE 5%-WATER 250 ML IV SCH (22:52)
[2019-02-03] MEDS: GABAPENTIN 300 MG CAPSULE PO SCH (22:53)
[2019-02-03] MEDS: PHARMACY COMMUNICATION ORDER MC SCH (22:54)
[2019-02-04] MEDS: IPRATROPIUM/ALBUTEROL 0.5-2.5 MG/3 ML AMPUL NEB SCH ×4 (00:17→19:41)
[2019-02-04] MEDS: HYDROMORPHONE HCL INJ/PF 2 MG/ML AMPULE IV PRN ×5 (03:04→23:06)
[2019-02-04] MEDS: PANTOPRAZOLE SODIUM 20 MG TABLET.DR PO SCH (05:09)
[2019-02-04] MEDS: GUAIFENESIN/CODEINE PHOS 100-10 MG/ 5 ML UDC PO PRN ×2 (05:12→12:55)
[2019-02-04 06:11] LABS: HEMATOCRIT 38.6 % (36.0-47.0); MEAN CORPUSCULAR HEMOGLOBIN 32.7 pg (27.0-33.4); MEAN CORPUSCULAR HGB CONC 33.5 g/dL (32.0-36.0); MEAN CORPUSCULAR VOLUME 98 fl (80-97); PLATELET COUNT 386 10^3/uL (150-450); RED BLOOD COUNT 3.95 10^6/uL (3.72-5.28); RED CELL DISTRIBUTION WIDTH 13.8 % (11.5-14.0); WHITE BLOOD COUNT 18.8 10^3/uL (4.0-10.5)
[2019-02-04 06:16] LABS: ANION GAP 9 (5-19); BLOOD UREA NITROGEN 28 mg/dL (7-20); CALCIUM 9.7 mg/dL (8.4-10.2); CARBON DIOXIDE 33 mmol/L (22-30); CHLORIDE 96 mmol/L (98-107); GLUCOSE 103 mg/dL (75-110); POTASSIUM 4.6 mmol/L (3.6-5.0); SODIUM 137.8 mmol/L (137-145)
[2019-02-04] MEDS: KETOROLAC TROMETHAMINE INJ/PF 30 MG/1 ML SDV IV PRN (06:33)
[2019-02-04 06:46] LABS: HEMOGLOBIN 12.9 g/dL (12.0-15.5)
[2019-02-04 06:49] LABS: ABSOLUTE LYMPHOCYTES# (MANUAL) 1.3 10^3/uL (0.5-4.7); ABSOLUTE MONOCYTES # (MANUAL) 0.8 10^3/uL (0.1-1.4); ABSOLUTE NEUTROPHILS# (MANUAL) 16.7 10^3/uL (1.7-8.2); BAND NEUTROPHILS % (MANUAL) 1 % (3-5); BASOPHILS % (MANUAL) 0 % (0-2); EOSINOPHILS % (MANUAL) 0 % (0-6); LYMPHOCYTES % (MANUAL) 7 % (13-45); MONOCYTES % (MANUAL) 4 % (3-13); SEGMENTED NEUTROPHILS % (MAN) 88 % (42-78); TOTAL CELLS COUNTED 100
[2019-02-04 06:51] LABS: RBC MORPHOLOGY COMMENT NORMO-CYTIC/CHROMIC
[2019-02-04 06:52] LABS: PLATELET COMMENT ADEQUATE; TOXIC GRANULATION 1+
[2019-02-04] MEDS: VANCOMYCIN HCL 1,000 MG in DEXTROSE 5%-WATER 250 ML IV SCH ×2 (10:20→21:46)
[2019-02-04] MEDS: DULOXETINE HCL 30 MG CAPSULE.DR PO SCH (10:20)
[2019-02-04] MEDS: PREDNISONE 20 MG TABLET PO SCH (10:21)
[2019-02-04] MEDS: AMLODIPINE BESYLATE 10 MG TABLET PO SCH (10:21)
[2019-02-04] MEDS: CETIRIZINE 10 MG TABLET PO SCH (10:21)
[2019-02-04] MEDS: CALCIUM CARBONATE 250 MG/VITAMIN D3 125 UNIT TABLET PO SCH (10:21)
[2019-02-04] MEDS: ENOXAPARIN SODIUM INJ 40 MG/0.4 ML DISP.SYRIN SUBCUT SCH (10:21)
[2019-02-04] MEDS: POLYETHYLENE GLYCOL 3350 POWDER 17 GM/1 PACKET PO SCH (10:22)
[2019-02-04] MEDS: FLUTICASONE NASAL SPRAY 50 MCG/SPRY 120 SPRAY/16 GM NASL SCH ×2 (10:24→21:45)
[2019-02-04] MEDS: NICOTINE 21 MG/24 HR PATCH.TD24 TD SCH (10:34)
[2019-02-04] MEDS: LIDOCAINE 5% (700 MG) TRANSDERMAL ADH..PATCH TP SCH (10:34)
[2019-02-04] MEDS: LEVOFLOXACIN 750 MG/D5W RTU 750 MG/150 ML RTUPB IV SCH (12:55)
--- NOTE | 2019-02-04 16:45 | Pulmonary Function Test ---
Pulmonary Function Test Date of Procedure:: 02/04/19 INDICATION:: Dyspnea Referring Provider: Malia JOINER Jointer Machine Operator: Sharon Vance, ACCREDITED PHARMACY TECHNICIAN, DIRECTOR OF CONSULTING SERVICES - Report Spirometry: FVC 2.14 L 79% postbronchodilator 1.19 L 44% FEV1 0.89 L 43% postbronchodilator 0.90 L 44% FEV1/FVC % 42 postbronchodilator 76 predicted 77 FEF 25-75% 0.80 L 41% postbronchodilator 1.28 L 65% Impression: Severe obstructive ventilatory defect when seen insignificant response to bronchodilator therapy. This in and of itself does not preclude a clinical trial of bronchodilator therapy
[2019-02-04] MEDS: GUAIFENESIN SYRP 200 MG/10 ML UDC PO PRN (18:58)
[2019-02-04] MEDS: BUDESONIDE NEB 0.5 MG/2 ML AMPUL NEB SCH (19:41)
--- NOTE | 2019-02-04 20:36 | PDOC PROGRESS REPORT ---
Subjective Progress Note for:: 02/04/19 Subjective:: Patient is still experiencing significant bronchospasm with very hoarse barking cough. Reason For Visit: COPD EXACERBATION ACUTE SINUSITIS Physical Exam Vital Signs: Temp Pulse Resp BP Pulse Ox 97.4 F 86 18 146/78 H 92 02/04/19 04:42 02/04/19 15:34 02/04/19 15:34 02/04/19 04:42 02/04/19 15:34 Intake & Output 02/03/19 02/04/19 02/05/19 06:59 06:59 06:59 Intake Total 1367 1352 400 Balance 1367 1352 400 Weight 93.9 kg 95.8 kg General appearance: PRESENT: cooperative, mild distress, morbidly obese, well-developed Head exam: PRESENT: atraumatic, normocephalic Ear exam: PRESENT: normal external ear exam Mouth exam: PRESENT: moist, tongue midline Respiratory exam: PRESENT: other - Very hoarse barking cough continues. ABSENT: accessory muscle use, prolonged expiratory phas, rales, rhonchi, wheezes Cardiovascular exam: PRESENT: RRR, +S1, +S2 GI/Abdominal exam: PRESENT: normal bowel sounds, soft. ABSENT: distended, tenderness Neurological exam: PRESENT: alert, awake, oriented to person, oriented to place, oriented to time, oriented to situation, CN II-XII grossly intact Psychiatric exam: PRESENT: appropriate affect. ABSENT: agitated, anxious Focused psych exam: ABSENT: delusional, restlessness Results Laboratory Results: 02/04/19 05:27 02/04/19 05:27 02/04/19 02/04/19 05:27 05:27 WBC 18.8 H RBC 3.95 Hgb 12.9 D Hct 38.6 MCV 98 H MCH 32.7 MCHC 33.5 RDW 13.8 Plt Count 386 Seg Neutrophils % Not Reportable Lymphocytes % Not Reportable Monocytes % Not Reportable Eosinophils % Not Reportable Basophils % Not Reportable Absolute Neutrophils Not Reportable Absolute Lymphocytes Not Reportable Absolute Monocytes Not Reportable Absolute Eosinophils Not Reportable Absolute Basophils Not Reportable Sodium 137.8 Potassium 4.6 Chloride 96 L Carbon Dioxide 33 H Anion Gap 9 BUN 28 H Creatinine 0.82 Est GFR ( Amer) > 60 Est GFR (Non-Af Amer) > 60 Glucose 103 Calcium 9.7 01/30/19 01:01 Blood Blood Culture - Final Staphylococcus Hominis 01/29/19 01/29/19 22:04 22:04 Troponin I < 0.012 NT-Pro-B Natriuret Pep 250 Impressions: Chest X-Ray 01/29/19 21:53 IMPRESSION: No acute findings. No focal lung consolidation. Chest CT 01/30/19 00:00 IMPRESSION: 1. Left lower lobe pneumonia. 2. Reticulonodular infiltrate in the right lung which will also need follow-up to exclude underlying malignancy. Assessment and Plan - Diagnosis (1) MRSA bacteremia Is this a current diagnosis for this admission?: Yes Plan: Blood cultures (01/30/2019) positive for MRSA in one bottle and growing gram- positive cocci in second set. Repeat blood cultures (02/02/19) pending. Patient denies history of endocarditis or artificial heart valves. However, she does report multiple orthopedic hardware devices (left hip, knee, ankle and right femoral shoshana). She reports that in 2012 she required replacement of femoral shoshana and 8 weeks of IV antibiotics for unknown bacterial infection. Anticipate patient will require minimum 4 weeks of IV antibiotics. We will obtain echocardiogram to evaluate for endocarditis. We will consult infectious disease for guidance. 02/04/2019-Dr. Vaughn of the infectious disease service was able to evaluate the patient's records. Because of the patient's prostheses it is recommended that she have at least 4 weeks of outpatient IV antibiotic therapy. The initial blood cultures that were drawn revealed the aerobic bottle from blood culture sent #1 grew MRSA. The aerobic bottle from the second set of blood cultures drawn at that time had staph hominis. 2 sets of blood cultures drawn several days later are both no growth. Transthoracic echo was not suggestive of endocarditis. I will review infectious disease recommendations with patient tomorrow. It will be 48 hours with negative blood cultures and so a PICC line can be inserted at that time. (2) Left lower lobe pneumonia Qualifiers: Pneumonia type: due to unspecified organism Qualified Code(s): J18.1 - Lobar pneumonia, unspecified organism Is this a current diagnosis for this admission?: Yes Plan: Continue Levaquin 02/04/2019-this is most likely a community-acquired pneumonia. 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 We will continue the vancomycin and levofloxacin at this time with the vancomycin more dedicated to the MRSA blood culture. (3) Acute respiratory failure with hypoxia Is this a current diagnosis for this admission?: Yes Plan: Significantly improved; and maintaining oxygen saturations for periods of time on nasal cannula. Continues to use intermittent BiPAP. Multifactorial secondary to LLL PNA and COPD exacerbation. Patient is admitted to the medical floor on continuous telemetry. Supplemental oxygen and BiPAP as needed to maintain saturations >89% Scheduled and as needed nebulizer treatments IV Solumedrol; have begun weaning Mucinex twice daily Empirically placed on IV Levaquin (day #4) have added vancomycin secondary to MRSA bacteremia. Incentive spirometer and flutter valve to bedside. 02/04/2019-patient still has a very pronounced barking cough. I will increase her nebulizer treatments. I have also added Singulair. She still requires BiPAP therapy quite consistently. She did have PFTs performed in they suggest severe COPD. (4) Abnormal CT of the chest Is this a current diagnosis for this admission?: Yes Plan: Patient needs follow-up CT chest in the coming 3 to 6 months. 02/04/2019-there were several abnormal findings on the chest CT. This is in addition to the pneumonia. The patient will need outpatient follow-up with repeat CT scan in approximately 3 months. (5) Morbid obesity with BMI of 40.0-44.9, adult Is this a current diagnosis for this admission?: Yes Plan: Lifestyle modification advised. 02/04/2019-encourage diet and exercise. Exercise is limited due to the multiple prosthetic joints and her current respiratory status. A pronounced focus on diet would be suggested. (6) Tobacco dependence Is this a current diagnosis for this admission?: Yes Plan: Patient encouraged and counseled to quit smoking. 02/04/2019-continue nicotine patch and encourage smoking cessation. - Time Time Spent with patient: 25-34 minutes Medications reviewed and adjusted accordingly: Yes Anticipated discharge: Home with Homehealth
[2019-02-04] MEDS: GABAPENTIN 300 MG CAPSULE PO SCH (21:45)
[2019-02-04] MEDS: MONTELUKAST SODIUM 10 MG TABLET PO SCH (21:45)
[2019-02-04] MEDS: PHARMACY COMMUNICATION ORDER MC SCH (21:45)
[2019-02-05] MEDS: GUAIFENESIN SYRP 200 MG/10 ML UDC PO PRN ×6 (00:22→23:03)
[2019-02-05] MEDS: IPRATROPIUM/ALBUTEROL 0.5-2.5 MG/3 ML AMPUL NEB SCH ×4 (02:37→19:40)
[2019-02-05] MEDS: PANTOPRAZOLE SODIUM 20 MG TABLET.DR PO SCH (05:12)
[2019-02-05] MEDS: HYDROMORPHONE HCL INJ/PF 2 MG/ML AMPULE IV PRN ×5 (05:14→23:03)
[2019-02-05] MEDS: BUDESONIDE NEB 0.5 MG/2 ML AMPUL NEB SCH ×2 (07:54→19:40)
--- NOTE | 2019-02-05 08:43 | RADIOLOGY REPORT (SQ) ---
EXAM DESCRIPTION: CHEST SINGLE VIEW COMPLETED DATE/TIME: 02/05/2019 8:29 am REASON FOR STUDY: Dyspnea with pneumonia COMPARISON: CT chest 01/30/2019 Chest films 01/29/2019, 08/02/2018 EXAM PARAMETERS: NUMBER OF VIEWS: One view. TECHNIQUE: Single frontal radiographic view of the chest acquired. RADIATION DOSE: NA LIMITATIONS: None. FINDINGS: LUNGS AND PLEURA: Airspace disease is present in the lateral aspect of the right upper lob e adjacent to the minor fissure worrisome for pneumonia. There is increasing consolidation in the left lower lobe worrisome for pneumonia. Question trace lef t pleural fluid. No pneumothorax MEDIASTINUM AND HILAR STRUCTURES: No masses. Contour normal. HEART AND VASCULAR STRUCTURES: Borderline cardiomegaly BONES: No acute findings. HARDWARE: None in the chest. OTHER: No other significant finding. IMPRESSION: Right upper lobe and left lower lobe pneumonia. Trace left pleural fluid TECHNICAL DOCUMENTATION: JOB ID: [id number] [employer]- All Rights Reserved Reading location - IP/workstation name: [email or web address]
[2019-02-05] MEDS: CALCIUM CARBONATE 250 MG/VITAMIN D3 125 UNIT TABLET PO SCH (09:44)
[2019-02-05] MEDS: CETIRIZINE 10 MG TABLET PO SCH (09:45)
[2019-02-05] MEDS: DULOXETINE HCL 30 MG CAPSULE.DR PO SCH (09:45)
[2019-02-05] MEDS: AMLODIPINE BESYLATE 10 MG TABLET PO SCH (09:45)
[2019-02-05] MEDS: PREDNISONE 20 MG TABLET PO SCH (09:46)
[2019-02-05] MEDS: FLUTICASONE NASAL SPRAY 50 MCG/SPRY 120 SPRAY/16 GM NASL SCH ×2 (09:46→21:16)
[2019-02-05] MEDS: VANCOMYCIN HCL 1,000 MG in DEXTROSE 5%-WATER 250 ML IV SCH (09:53)
[2019-02-05] MEDS: ENOXAPARIN SODIUM INJ 40 MG/0.4 ML DISP.SYRIN SUBCUT SCH (09:55)
[2019-02-05] MEDS: NICOTINE 21 MG/24 HR PATCH.TD24 TD SCH (10:09)
[2019-02-05] MEDS: POLYETHYLENE GLYCOL 3350 POWDER 17 GM/1 PACKET PO SCH (13:45)
[2019-02-05] MEDS: LIDOCAINE 5% (700 MG) TRANSDERMAL ADH..PATCH TP SCH (13:45)
[2019-02-05] MEDS: LEVOFLOXACIN 750 MG/D5W RTU 750 MG/150 ML RTUPB IV SCH (13:47)
--- NOTE | 2019-02-05 16:59 | PDOC PROGRESS REPORT ---
Subjective Progress Note for:: 02/05/19 Subjective:: The patient's daughter is present at the bedside during this encounter. Patient appears quite comfortable this morning. Reason For Visit: COPD EXACERBATION ACUTE SINUSITIS Physical Exam Vital Signs: Temp Pulse Resp BP Pulse Ox 97.5 F 111 H 18 109/65 90 L 02/05/19 00:36 02/05/19 13:30 02/05/19 13:30 02/05/19 00:36 02/05/19 13:30 Intake & Output 02/04/19 02/05/19 02/06/19 06:59 06:59 06:59 Intake Total 1352 1300 Balance 1352 1300 Weight 95.8 kg 95.8 kg General appearance: PRESENT: no acute distress, morbidly obese, well-developed Head exam: PRESENT: atraumatic, normocephalic Respiratory exam: PRESENT: rhonchi - Possible faint rhonchi on the left, sym metrical, unlabored. ABSENT: accessory muscle use, crackles, rales, tachypnea, wheezes Cardiovascular exam: PRESENT: RRR, +S1, +S2 GI/Abdominal exam: PRESENT: normal bowel sounds, soft. ABSENT: distended, guarding, tenderness Rectal exam: PRESENT: deferred Gentrourinary exam: ABSENT: indwelling catheter Extremities exam: ABSENT: pedal edema Neurological exam: PRESENT: oriented to person, oriented to place, oriented to time, oriented to situation, CN II-XII grossly intact Psychiatric exam: PRESENT: appropriate affect, other - Patient was upset with our discussion today. Please see details below.. ABSENT: agitated, anxious Results Laboratory Results: 02/04/19 05:27 02/05/19 09:55 02/05/19 09:55 Creatinine 0.93 Est GFR ( Amer) > 60 Est GFR (Non-Af Amer) > 60 01/29/19 01/29/19 22:04 22:04 Troponin I < 0.012 NT-Pro-B Natriuret Pep 250 Impressions: Chest CT 01/30/19 00:00 IMPRESSION: 1. Left lower lobe pneumonia. 2. Reticulonodular infiltrate in the right lung which will also need follow-up to exclude underlying malignancy. Chest X-Ray 02/05/19 06:00 IMPRESSION: Right upper lobe and left lower lobe pneumonia. Trace left pleural fluid Assessment and Plan - Diagnosis (1) MRSA bacteremia Is this a current diagnosis for this admission?: Yes Plan: Blood cultures (01/30/2019) positive for MRSA in one bottle and growing gram- positive cocci in second set. Repeat blood cultures (02/02/19) pending. Patient denies history of endocarditis or artificial heart valves. However, she does report multiple orthopedic hardware devices (left hip, knee, ankle and right femoral shoshana). She reports that in 2012 she required replacement of femora l shoshana and 8 weeks of IV antibiotics for unknown bacterial infection. Anticipate patient will require minimum 4 weeks of IV antibiotics. We will obtain echocardiogram to evaluate for endocarditis. We will consult infectious disease for guidance. 02/04/2019-Dr. Vaughn of the infectious disease service was able to evaluate the patient's records. Because of the patient's prostheses it is recommended that she have at least 4 weeks of outpatient IV antibiotic therapy. The initial blood cultures that were drawn revealed the aerobic bottle from blood culture sent #1 grew MRSA. The aerobic bottle from the second set of blood cultures drawn at that time had staph hominis. 2 sets of blood cultures drawn several days later are both no growth. Transthoracic echo was not suggestive of endocarditis. I will review infectious disease recommendations with patient tomorrow. It will be 48 hours with negative blood cultures and so a PICC line can be inserted at that time. 02/05/2019-as noted above despite only a single positive blood culture Dr. Vaughn has recommended long-term IV antibiotic therapy. The risk, considering her multiple prostheses, is high and we want to be aggressive. Her blood cultures have been negative for greater than 48 hours and so I have ordered a PICC line. We will obtain home infusion services and they will adjust her vancomycin dosing. (2) Left lower lobe pneumonia Qualifiers: Pneumonia type: due to unspecified organism Qualified Code(s): J18.1 - Lobar pneumonia, unspecified organism Is this a current diagnosis for this admission?: Yes Plan: Continue Levaquin 02/04/2019-this is most likely a community-acquired pneumonia. 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 We will continue the vancomycin and levofloxacin at this time with the vancomycin more dedicated to the MRSA blood culture. 02/05/2019-she will complete her course of levofloxacin and as noted above will be on vancomycin long-term. Faint rhonchi remain on the left but she did not cough once during this encounter. She was also on nasal cannula and not BiPAP. (3) Acute respiratory failure with hypoxia Is this a current diagnosis for this admission?: Yes Plan: Significantly improved; and maintaining oxygen saturations for periods of time on nasal cannula. Continues to use intermittent BiPAP. Multifactorial secondary to LLL PNA and COPD exacerbation. Patient is admitted to the medical floor on continuous telemetry. Supplemental oxygen and BiPAP as needed to maintain saturations >89% Scheduled and as needed nebulizer treatments IV Solumedrol; have begun weaning Mucinex twice daily Empirically placed on IV Levaquin (day #4) have added vancomycin secondary to MRSA bacteremia. Incentive spirometer and flutter valve to bedside. 02/04/2019-patient still has a very pronounced barking cough. I will increase her nebulizer treatments. I have also added Singulair. She still requires BiPAP therapy quite consistently. She did have PFTs performed in they suggest severe COPD. 02/05/2019-as noted above she is improved today. PFTs did exhibit severe COPD. I will start her on a regimen geared toward outpatient therapy in the next day or so. She will need follow-up with a raw mill operator as an outpatient. I strongly suggested that she continue tobacco cessation. In addition she is supposed to be on CPAP but has not worn it for many years. She was also admonished about her noncompliance. (4) Abnormal CT of the chest Is this a current diagnosis for this admission?: Yes Plan: Patient needs follow-up CT chest in the coming 3 to 6 months. 02/04/2019-there were several abnormal findings on the chest CT. This is in addition to the pneumonia. The patient will need outpatient follow-up with repeat CT scan in approximately 3 months. 02/05/[id number] CT as an outpatient (5) Morbid obesity with BMI of 40.0-44.9, adult Is this a current diagnosis for this admission?: Yes Plan: Lifestyle modification advised. 02/04/2019-encourage diet and exercise. Exercise is limited due to the multiple prosthetic joints and her current respiratory status. A pronounced focus on diet would be suggested. 02/05/2019-during today's encounter I discovered that she is noncompliant with her CPAP and I explained to her this contributes to obesity as well as multiple other comorbidities. I strongly encouraged her to resume CPAP. (6) Tobacco dependence Is this a current diagnosis for this admission?: Yes Plan: Patient encouraged and counseled to quit smoking. 02/04/2019-continue nicotine patch and encourage smoking cessation. 02/05/2019-another discussion about tobacco cessation was had today in the presence of her daughter. - Time Time Spent with patient: 25-34 minutes Medications reviewed and adjusted accordingly: Yes Anticipated discharge: Home with Homehealth, Other - Home infusion
[2019-02-05] MEDS: MONTELUKAST SODIUM 10 MG TABLET PO SCH (21:15)
[2019-02-05] MEDS: VANCOMYCIN HCL 750 MG in DEXTROSE 5%-WATER 250 ML IV SCH (21:16)
[2019-02-05] MEDS: GABAPENTIN 300 MG CAPSULE PO SCH (21:16)
[2019-02-05] MEDS: PHARMACY COMMUNICATION ORDER MC SCH (21:17)
[2019-02-05] MEDS ORDERED: PHARMACY COMMUNICATION ORDER MC SCH (22:00)
[2019-02-06] MEDS: IPRATROPIUM/ALBUTEROL 0.5-2.5 MG/3 ML AMPUL NEB SCH ×5 (01:56→20:06)
[2019-02-06] MEDS: HYDROMORPHONE HCL INJ/PF 2 MG/ML AMPULE IV PRN ×3 (03:03→11:17)
[2019-02-06] MEDS: GUAIFENESIN SYRP 200 MG/10 ML UDC PO PRN ×5 (03:04→20:13)
[2019-02-06] MEDS: PANTOPRAZOLE SODIUM 20 MG TABLET.DR PO SCH (05:26)
[2019-02-06] MEDS: BUDESONIDE NEB 0.5 MG/2 ML AMPUL NEB SCH ×2 (07:31→20:05)
[2019-02-06] MEDS: DULOXETINE HCL 30 MG CAPSULE.DR PO SCH (10:18)
[2019-02-06] MEDS: PREDNISONE 20 MG TABLET PO SCH (10:18)
[2019-02-06] MEDS: CALCIUM CARBONATE 250 MG/VITAMIN D3 125 UNIT TABLET PO SCH (10:18)
[2019-02-06] MEDS: VANCOMYCIN HCL 750 MG in DEXTROSE 5%-WATER 250 ML IV SCH ×2 (10:18→21:31)
[2019-02-06] MEDS: CETIRIZINE 10 MG TABLET PO SCH (10:18)
[2019-02-06] MEDS: AMLODIPINE BESYLATE 10 MG TABLET PO SCH (10:19)
[2019-02-06] MEDS: ENOXAPARIN SODIUM INJ 40 MG/0.4 ML DISP.SYRIN SUBCUT SCH (10:19)
[2019-02-06] MEDS: LIDOCAINE 5% (700 MG) TRANSDERMAL ADH..PATCH TP SCH (10:20)
[2019-02-06] MEDS: FLUTICASONE NASAL SPRAY 50 MCG/SPRY 120 SPRAY/16 GM NASL SCH ×2 (10:20→21:29)
[2019-02-06] MEDS: NICOTINE 21 MG/24 HR PATCH.TD24 TD SCH (10:20)
[2019-02-06] MEDS: POLYETHYLENE GLYCOL 3350 POWDER 17 GM/1 PACKET PO SCH (10:20)
--- NOTE | 2019-02-06 10:34 | RADIOLOGY REPORT (SQ) ---
EXAM DESCRIPTION: PICC INSERTION; FLUORO/CV PLACEMENT; U/S GUIDE FOR VASCULAR ACCESS COMPLETED DATE/TIME: 02/06/2019 10:09 am REASON FOR STUDY: Long-term IV antibiotics; [facility] IV ABX; IV ACCESS COMPARISON: None. FLUOROSCOPY TIME: 8 seconds 2 images saved to PACS. TECHNIQUE: Fluoroscopic and ultrasound guided PICC placement. LIMITATIONS: None. PROCEDURE: After written consent and assessment were obtained, the patient was brought into the fluo roscopy room and placed supine on the table. Ultrasound evaluation of potential access sites were per formed. After successfully identifying a patent left basilic vein, the left arm was prepped and drape d in a sterile fashion along with the ultrasound probe. The entry site was anesthetized with 1% lidoc remy. A 21 gauge 7 cm needle was advanced through the skin and into the basilic vein under live ultra sound guidance. An ultrasound image was saved to PACS confirming access site. A .018 guide wire was then inserted through the needle and into the venous system. The needle was then removed and an 11 b lade scalpel was used to make a 1cm skin incision. A 5 fr peel-away sheath was advanced over the wir e and into the venous system. A measurement was then made using the existing wire and live fluoroscop ic guidance. The wire was then removed and trimmed. The PICC was advanced through the peel-away sheat h and into the venous system. The peel-away sheath was removed and the catheter was adhered to the pa tients arm with a stat lock. The catheter was then aspirated and flushed and a sterile bandage was pl aced over the access site. A fluoroscopic spot image was saved to PACS confirming the catheter tip w ithin the superior vena cava. IMPRESSION: SUCCESSFUL PLACEMENT OF A 5 FR DUAL LUMEN 42 CM PICC IN THE LEFT BASILIC VEIN. COMMENT: Patient medication list reviewed: Yes- Quality ID# [id number]:Eligible professional attests to doc umenting in the medical record they obtained, updated, or reviewed the patient's current medications. . Quality ID 145: Final reports for procedures using fluoroscopy that document radiation exposure davidson rachel, or exposure time and number of fluorographic images (if radiation exposure indices are not avail able) Quality ID #76: The patient was prepped and draped using maximum sterile barrier technique including cap, mask, sterile gown, sterile gloves, a large sterile sheet, hand hygiene, and 2% Chlorhexidine fo r cutaneous antisepsis. When ultrasound is used, sterile ultrasound techniques are followed requiring sterile gel and sterile probes. TECHNICAL DOCUMENTATION: JOB ID: [id number] [employer]- All Rights Reserved rev-01/24 Reading location - IP/workstation name: [email or web address]
[2019-02-06] MEDS: LEVOFLOXACIN 750 MG/D5W RTU 750 MG/150 ML RTUPB IV SCH (12:39)
[2019-02-06] MEDS ORDERED: IPRATROPIUM/ALBUTEROL 0.5-2.5 MG/3 ML AMPUL NEB PRN (15:16)
[2019-02-06] MEDS: ACETAMINOPHEN 325 MG TABLET PO PRN (15:47)
[2019-02-06] MEDS ORDERED: METHYLPREDNISOLONE INJ 125 MG/2 ML SDV IV ONE (16:00)
--- NOTE | 2019-02-06 21:27 | PDOC PROGRESS REPORT ---
Subjective Progress Note for:: 02/06/19 Subjective:: The patient is more dependent on BiPAP today. The hoarse barking cough seems worse. I did ask her daughter to bring in her home CPAP machine. Reason For Visit: COPD EXACERBATION ACUTE SINUSITIS Physical Exam Vital Signs: Temp Pulse Resp BP Pulse Ox 98.7 F 108 H 19 124/74 91 L 02/06/19 12:00 02/06/19 12:00 02/06/19 12:00 02/06/19 12:00 02/06/19 12:00 Intake & Output 02/05/19 02/06/19 02/07/19 06:59 06:59 06:59 Intake Total 1300 700 Output Total 2 Balance 1300 698 Weight 95.8 kg 95.8 kg General appearance: PRESENT: mild distress, obese Head exam: PRESENT: atraumatic, normocephalic Ear exam: PRESENT: normal external ear exam Mouth exam: PRESENT: moist, tongue midline Respiratory exam: PRESENT: prolonged expiratory phas, rhonchi, symmetrical, tachypnea, wheezes. ABSENT: accessory muscle use, rales, stridor Cardiovascular exam: PRESENT: RRR, +S1, +S2 GI/Abdominal exam: PRESENT: normal bowel sounds, soft. ABSENT: distended, tenderness Rectal exam: PRESENT: deferred Gentrourinary exam: ABSENT: indwelling catheter Extremities exam: ABSENT: calf tenderness, pedal edema Musculoskeletal exam: PRESENT: ambulatory Neurological exam: PRESENT: alert, awake, oriented to person, oriented to place, oriented to time, oriented to situation, CN II-XII grossly intact Psychiatric exam: PRESENT: appropriate affect - Affect reflects her discouragement with slow progress healing. ABSENT: agitated, anxious Skin exam: PRESENT: dry, warm, other - Scattered ecchymotic lesions arms. ABSENT: rash Results Laboratory Results: 02/04/19 05:27 02/05/19 09:55 01/29/19 01/29/19 22:04 22:04 Troponin I < 0.012 NT-Pro-B Natriuret Pep 250 Impressions: Chest CT 01/30/19 00:00 IMPRESSION: 1. Left lower lobe pneumonia. 2. Reticulonodular infiltrate in the right lung which will also need follow-up to exclude underlying malignancy. Chest X-Ray 02/05/19 06:00 IMPRESSION: Right upper lobe and left lower lobe pneumonia. Trace left pleural fluid Guidance Fluoroscopy 02/06/19 00:00 IMPRESSION: SUCCESSFUL PLACEMENT OF A 5 FR DUAL LUMEN 42 CM PICC IN THE LEFT BASILIC VEIN. Interventional Vascular Procedure 02/06/19 00:00 IMPRESSION: SUCCESSFUL PLACEMENT OF A 5 FR DUAL LUMEN 42 CM PICC IN THE LEFT BASILIC VEIN. PICC Line Insertion 02/06/19 00:00 IMPRESSION: SUCCESSFUL PLACEMENT OF A 5 FR DUAL LUMEN 42 CM PICC IN THE LEFT BASILIC VEIN. Assessment and Plan - Diagnosis (1) MRSA bacteremia Is this a current diagnosis for this admission?: Yes Plan: Blood cultures (01/30/2019) positive for MRSA in one bottle and growing gram- positive cocci in second set. Repeat blood cultures (02/02/19) pending. Patient denies history of endocarditis or artificial heart valves. However, she does report multiple orthopedic hardware devices (left hip, knee, ankle and right femoral shoshana). She reports that in 2012 she required replacement of femoral shoshana and 8 weeks of IV antibiotics for unknown bacterial infection. Anticipate patient will require minimum 4 weeks of IV antibiotics. We will obtain echocardiogram to evaluate for endocarditis. We will consult infectious disease for guidance. 02/04/2019-Dr. Vaughn of the infectious disease service was able to evaluate the patient's records. Because of the patient's prostheses it is recommended that she have at least 4 weeks of outpatient IV antibiotic therapy. The initial blood cultures that were drawn revealed the aerobic bottle from blood culture sent #1 grew MRSA. The aerobic bottle from the second set of blood cultures drawn at that time had staph hominis. 2 sets of blood cultures drawn several days later are both no growth. Transthoracic echo was not suggestive of endocarditis. I will review infectious disease recommendations with patient tomorrow. It will be 48 hours with negative blood cultures and so a PICC line can be inserted at that time. 02/05/2019-as noted above despite only a single positive blood culture Dr. Vaughn has recommended long-term IV antibiotic therapy. The risk, considering her multiple prostheses, is high and we want to be aggressive. Her blood cultures have been negative for greater than 48 hours and so I have ordered a PICC line. We will obtain home infusion services and they will adjust her vancomycin dosing. 02/06/2019-the patient did have successful placement of a PICC line today. We will continue her vancomycin. Arrangements are being made for outpatient infusion services at home (2) Left lower lobe pneumonia Qualifiers: Pneumonia type: due to unspecified organism Qualified Code(s): J18.1 - L obar pneumonia, unspecified organism Is this a current diagnosis for this admission?: Yes Plan: Continue Levaquin 02/04/2019-this is most likely a community-acquired pneumonia. 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 We will continue the vancomycin and levofloxacin at this time with the vancomycin more dedicated to the MRSA blood culture. 02/05/2019-she will complete her course of levofloxacin and as noted above will be on vancomycin long-term. Faint rhonchi remain on the left but she did not cough once during this encounter. She was also on nasal cannula and not BiPAP. 02/06/2019-the patient actually seems to be losing ground as opposed to improving. She is still on vancomycin and levofloxacin. She does work in a nursery and so other considerations could be viral. If she does not start to improve and may need to change the levofloxacin or add another agent. I did make changes to her regimen as outlined in the entry for COPD. (3) Acute respiratory failure with hypoxia Is this a current diagnosis for this admission?: Yes Plan: Significantly improved; and maintaining oxygen saturations for periods of time on nasal cannula. Continues to use intermittent BiPAP. Multifactorial secondary to LLL PNA and COPD exacerbation. Patient is admitted to the medical floor on continuous telemetry. Supplemental oxygen and BiPAP as needed to maintain saturations >89% Scheduled and as needed nebulizer treatments IV Solumedrol; have begun weaning Mucinex twice daily Empirically placed on IV Levaquin (day #4) have added vancomycin secondary to MRSA bacteremia. Incentive spirometer and flutter valve to bedside. 02/04/2019-patient still has a very pronounced barking cough. I will increase her nebulizer treatments. I have also added Singulair. She still requires BiPAP therapy quite consistently. She did have PFTs performed in they suggest severe COPD. 02/05/2019-as noted above she is improved today. PFTs did exhibit severe COPD. I will start her on a regimen geared toward outpatient therapy in the next day or so. She will need follow-up with a auto seat cover installer as an outpatient. I strongly suggested that she continue tobacco cessation. In addition she is supposed to be on CPAP but has not worn it for many years. She was also admonished about her noncompliance. The patient did have pulmonary function testing earlier in this hospitalization. As noted above it revealed severe COPD. I will increase the frequency of the patient's DuoNeb treatments. I will keep the budesonide every 12 hours for the time being. I also will change back from oral steroid therapy to intravenous Solu-Medrol. I will also discuss with pulmonology in terms of obtaining a consult. In addition, because of her high oxygen requirements, I have ordered ambulatory pulse oximetry to qualify the patient for home oxygen therapy. (4) Abnormal CT of the chest Is this a current diagnosis for this admission?: Yes Plan: Patient needs follow-up CT chest in the coming 3 to 6 months. 02/04/2019-there were several abnormal findings on the chest CT. This is in addition to the pneumonia. The patient will need outpatient follow-up with repeat CT scan in approximately 3 months. 02/[id number] CT as an outpatient 02/06/2019-as above (5) Morbid obesity with BMI of 40.0-44.9, adult Is this a current diagnosis for this admission?: Yes Plan: Lifestyle modification advised. 02/04/2019-encourage diet and exercise. Exercise is limited due to the multiple prosthetic joints and her current respiratory status. A pronounced focus on diet would be suggested. 02/05/2019-during today's encounter I discovered that she is noncompliant with her CPAP and I explained to her this contributes to obesity as well as multiple other comorbidities. I strongly encouraged her to resume CPAP. 02/06/2019, as above (6) Tobacco dependence Is this a current diagnosis for this admission?: Yes Plan: Patient encouraged and counseled to quit smoking. 02/04/2019-continue nicotine patch and encourage smoking cessation. 02/05/2019-another discussion about tobacco cessation was had today in the presence of her daughter. 02/06/2019-as above - Time Time Spent with patient: 15-24 minutes Smoking Cessation Education: 3 to 10 minutes Medications reviewed and adjusted accordingly: Yes
[2019-02-06] MEDS: GABAPENTIN 300 MG CAPSULE PO SCH (21:30)
[2019-02-06] MEDS: METHYLPREDNISOLONE INJ 40 MG/1 ML SDV IV SCH (21:30)
[2019-02-06] MEDS: PHARMACY COMMUNICATION ORDER MC SCH (21:30)
[2019-02-06] MEDS: NORMAL SALINE 10 ML SDV (SCHEDULED) IV SCH (21:36)
[2019-02-06] MEDS: MONTELUKAST SODIUM 10 MG TABLET PO SCH (21:36)
[2019-02-07] MEDS: IPRATROPIUM/ALBUTEROL 0.5-2.5 MG/3 ML AMPUL NEB SCH ×6 (00:08→20:34)
[2019-02-07] MEDS: LORAZEPAM INJ 2 MG/1 ML VIAL IV PRN ×2 (02:23→09:24)
[2019-02-07] MEDS: PANTOPRAZOLE SODIUM 20 MG TABLET.DR PO SCH (05:53)
[2019-02-07] MEDS: METHYLPREDNISOLONE INJ 40 MG/1 ML SDV IV SCH ×3 (05:53→21:25)
[2019-02-07] MEDS: BUDESONIDE NEB 0.5 MG/2 ML AMPUL NEB SCH ×2 (07:45→20:34)
[2019-02-07] MEDS: GUAIFENESIN SYRP 200 MG/10 ML UDC PO PRN (09:22)
[2019-02-07] MEDS: NICOTINE 21 MG/24 HR PATCH.TD24 TD SCH (09:24)
[2019-02-07] MEDS: POLYETHYLENE GLYCOL 3350 POWDER 17 GM/1 PACKET PO SCH (09:24)
[2019-02-07] MEDS: CALCIUM CARBONATE 250 MG/VITAMIN D3 125 UNIT TABLET PO SCH (09:25)
[2019-02-07] MEDS: CETIRIZINE 10 MG TABLET PO SCH (09:25)
[2019-02-07] MEDS: DULOXETINE HCL 30 MG CAPSULE.DR PO SCH (09:25)
[2019-02-07] MEDS: AMLODIPINE BESYLATE 10 MG TABLET PO SCH (09:26)
[2019-02-07] MEDS: NORMAL SALINE 10 ML SDV (SCHEDULED) IV SCH ×2 (09:26→21:27)
[2019-02-07] MEDS: ENOXAPARIN SODIUM INJ 40 MG/0.4 ML DISP.SYRIN SUBCUT SCH (09:26)
[2019-02-07] MEDS: VANCOMYCIN HCL 750 MG in DEXTROSE 5%-WATER 250 ML IV SCH ×2 (09:27→21:24)
[2019-02-07] MEDS: LIDOCAINE 5% (700 MG) TRANSDERMAL ADH..PATCH TP SCH (09:27)
[2019-02-07] MEDS: FLUTICASONE NASAL SPRAY 50 MCG/SPRY 120 SPRAY/16 GM NASL SCH ×2 (09:35→21:26)
[2019-02-07 10:31] LABS: VANCOMYCIN,TROUGH 15.2 ug/mL (5.0-20.0)
[2019-02-07] MEDS: LEVOFLOXACIN 750 MG/D5W RTU 750 MG/150 ML RTUPB IV SCH (11:49)
[2019-02-07] MEDS: NORMAL SALINE 10 ML SDV (AFTER EACH USE) IV PRN (13:17)
[2019-02-07] MEDS: ACETAMINOPHEN 325 MG TABLET PO PRN ×2 (13:25→18:21)
[2019-02-07] MEDS ORDERED: LORAZEPAM INJ 2 MG/1 ML VIAL IV PRN (15:45)
--- NOTE | 2019-02-07 19:55 | PDOC PROGRESS REPORT ---
Subjective Progress Note for:: 02/07/19 Subjective:: The patient is on BiPAP at the time of this encounter. This moving around the room causes increased dyspnea. Still with hoarse barking cough Reason For Visit: COPD EXACERBATION ACUTE SINUSITIS Physical Exam Vital Signs: Temp Pulse Resp BP Pulse Ox 97.5 F 94 21 H 134/74 H 92 02/07/19 12:00 02/07/19 12:24 02/07/19 12:30 02/07/19 12:00 02/07/19 12:30 Pulse Oximeter Ambulatory Start: 02/06/19 12:41 Freq: ONCE Status: Active Protocol: Document 02/06/19 14:11 [facility] [place] (Rec: 02/06/19 14:21 [facility] [place] [id number]) Exercise Oximetry Treatment Ambulating SpO2 Charge Now No Additional RT Notes Other unable to ambulate at this time spo2 88 on 5lpm cannula, pt wants to return to NIV Intake & Output 02/06/19 02/07/19 02/08/19 06:59 06:59 06:59 Intake Total 850 1270 Output Total 2 200 Balance 848 1070 Weight 95.8 kg 95.4 kg General appearance: PRESENT: cooperative, mild distress, well-developed Head exam: PRESENT: atraumatic, normocephalic Ear exam: PRESENT: normal external ear exam Mouth exam: PRESENT: other Respiratory exam: PRESENT: rhonchi - Faint, symmetrical, tachypnea. ABSENT: accessory muscle use, rales, wheezes Cardiovascular exam: PRESENT: RRR, +S1, +S2 GI/Abdominal exam: PRESENT: normal bowel sounds, soft. ABSENT: distended, tenderness Rectal exam: PRESENT: deferred Gentrourinary exam: ABSENT: indwelling catheter Extremities exam: ABSENT: pedal edema Musculoskeletal exam: PRESENT: ambulatory Neurological exam: PRESENT: alert, awake, oriented to person, oriented to place, oriented to time, oriented to situation, CN II-XII grossly intact Psychiatric exam: PRESENT: anxious, appropriate affect. ABSENT: agitated Focused psych exam: ABSENT: delusional, restlessness Results Laboratory Results: 02/04/19 05:27 02/07/19 09:00 02/07/19 09:00 Creatinine 0.80 Est GFR ( Amer) > 60 Est GFR (Non-Af Amer) > 60 02/02/19 05:20 Blood Blood Culture - Final NO GROWTH IN 5 DAYS 02/02/19 05:28 Blood Blood Culture - Final NO GROWTH IN 5 DAYS 01/29/19 01/29/19 22:04 22:04 Troponin I < 0.012 NT-Pro-B Natriuret Pep 250 Impressions: Chest CT 01/30/19 00:00 IMPRESSION: 1. Left lower lobe pneumonia. 2. Reticulonodular infiltrate in the right lung which will also need follow-up to exclude underlying malignancy. Chest X-Ray 02/05/19 06:00 IMPRESSION: Right upper lobe and left lower lobe pneumonia. Trace left pleural fluid Guidance Fluoroscopy 02/06/19 00:00 IMPRESSION: SUCCESSFUL PLACEMENT OF A 5 FR DUAL LUMEN 42 CM PICC IN THE LEFT BASILIC VEIN. Interventional Vascular Procedure 02/06/19 00:00 IMPRESSION: SUCCESSFUL PLACEMENT OF A 5 FR DUAL LUMEN 42 CM PICC IN THE LEFT BASILIC VEIN. PICC Line Insertion 02/06/19 00:00 IMPRESSION: SUCCESSFUL PLACEMENT OF A 5 FR DUAL LUMEN 42 CM PICC IN THE LEFT BASILIC VEIN. Assessment and Plan - Diagnosis (1) MRSA bacteremia Is this a current diagnosis for this admission?: Yes Plan: Blood cultures (01/30/2019) positive for MRSA in one bottle and growing gram- positive cocci in second set. Repeat blood cultures (02/02/19) pending. Patient denies history of endocarditis or artificial heart valves. However, she does report multiple orthopedic hardware devices (left hip, knee, ankle and right femoral shoshana). She reports that in 2012 she required replacement of femoral shoshana and 8 weeks of IV antibiotics for unknown bacterial infection. Anticipate patient will require minimum 4 weeks of IV antibiotics. We will obtain echocardiogram to evaluate for endocarditis. We will consult infectious disease for guidance. 02/04/2019-Dr. Vaughn of the infectious disease service was able to evaluate the patient's records. Because of the patient's prostheses it is recommended that she have at least 4 weeks of outpatient IV antibiotic therapy. The initial blood cultures that were drawn revealed the aerobic bottle from blood culture sent #1 grew MRSA. The aerobic bottle from the second set of blood cultures drawn at that time had staph hominis. 2 sets of blood cultures drawn several days later are both no growth. Transthoracic echo was not suggestive of endocarditis. I will review infectious disease recommendations with patient tomorrow. It will be 48 hours with negative blood cultures and so a PICC line can be inserted at that time. 02/05/2019-as noted above despite only a single positive blood culture Dr. Vaughn has recommended long-term IV antibiotic therapy. The risk, considering her multiple prostheses, is high and we want to be aggressive. Her blood cultures have been negative for greater than 48 hours and so I have ordered a PICC line. We will obtain home infusion services and they will adjust her vancomycin dosing. 02/06/2019-the patient did have successful placement of a PICC line today. We will continue her vancomycin. Arrangements are being made for outpatient infusion services at home 02/07/2019-continue vancomycin therapy at this time. (2) Left lower lobe pneumonia Qualifiers: Pneumonia type: due to unspecified organism Qualified Code(s): J18.1 - Lobar pneumonia, unspecified organism Is this a current diagnosis for this admission?: Yes Plan: Continue Levaquin 02/04/2019-this is most likely a community-acquired pneumonia. 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 We will continue the vancomycin and levofloxacin at this time with the vancomycin more dedicated to the MRSA blood culture. 02/05/2019-she will complete her course of levofloxacin and as noted above will be on vancomycin long-term. Faint rhonchi remain on the left but she did not cough once during this encounter. She was also on nasal cannula and not BiPAP. 02/06/2019-the patient actually seems to be losing ground as opposed to improving. She is still on vancomycin and levofloxacin. She does work in a nursery and so other considerations could be viral. If she does not start to improve and may need to change the levofloxacin or add another agent. I did make changes to her regimen as outlined in the entry for COPD. 02/07/2019-there is a possibility, since the patient works in a nursery, that she might have Bordetella pertussis. I ordered a nasal swab and discontinued her Levaquin in favor of azithromycin. (3) Acute respiratory failure with hypoxia Is this a current diagnosis for this admission?: Yes Plan: Significantly improved; and maintaining oxygen saturations for periods of time on nasal cannula. Continues to use intermittent BiPAP. Multifactorial secondary to LLL PNA and COPD exacerbation. Patient is admitted to the medical floor on continuous telemetry. Supplemental oxygen and BiPAP as needed to maintain saturations >89% Scheduled and as needed nebulizer treatments IV Solumedrol; have begun weaning Mucinex twice daily Empirically placed on IV Levaquin (day #4) have added vancomycin secondary to MRSA bacteremia. Incentive spirometer and flutter valve to bedside. 02/04/2019-patient still has a very pronounced barking cough. I will increase her nebulizer treatments. I have also added Singulair. She still requires BiPAP therapy quite consistently. She did have PFTs performed in they suggest severe COPD. 02/05/2019-as noted above she is improved today. PFTs did exhibit severe COPD. I will start her on a regimen geared toward outpatient therapy in the next day or so. She will need follow-up with a chain tender as an outpatient. I strongly suggested that she continue tobacco cessation. In addition she is supposed to be on CPAP but has not worn it for many years. She was also admonished about her noncompliance. The patient did have pulmonary function testing earlier in this hospitalization. As noted above it revealed severe COPD. I will increase the frequency of the patient's DuoNeb treatments. I will keep the budesonide every 12 hours for the time being. I also will change back from oral steroid therapy to intravenous Solu-Medrol. I will also discuss with pulmonology in terms of obtaining a consult. In addition, because of her high oxygen requirements, I have ordered ambulatory pulse oximetry to qualify the patient for home oxygen therapy. 02/06/2019-no change in treatment plan from yesterday 02/07/2019-still requiring a significant amount of time on BiPAP. Her daughter did bring her CPAP machine in. The patient reported that her daughter will be bringing the machine to the vendor to have it checked. It is possible that this unit can provide BiPAP service but the patient will need to be more stable prior to discharge. (4) Abnormal CT of the chest Is this a current diagnosis for this admission?: Yes Plan: Patient needs follow-up CT chest in the coming 3 to 6 months. 02/04/2019-there were several abnormal findings on the chest CT. This is in addition to the pneumonia. The patient will need outpatient follow-up with repeat CT scan in approximately 3 months. 02/05/[id number] CT as an outpatient 02/06/2019-as above 02/07/2019-Lj follow-up as an outpatient (5) Morbid obesity with BMI of 40.0-44.9, adult Is this a current diagnosis for this admission?: Yes Plan: Lifestyle modification advised. 02/04/2019-encourage diet and exercise. Exercise is limited due to the multiple prosthetic joints and her current respiratory status. A pronounced focus on diet would be suggested. 02/05/2019-during today's encounter I discovered that she is noncompliant with her CPAP and I explained to her this contributes to obesity as well as multiple other comorbidities. I strongly encouraged her to resume CPAP. 02/06/2019, as above 02/07/2019-aggressive dieting after this acute illness resolves (6) Tobacco dependence Is this a current diagnosis for this admission?: Yes Plan: Patient encouraged and counseled to quit smoking. 02/04/2019-continue nicotine patch and encourage smoking cessation. 02/05/2019-another discussion about tobacco cessation was had today in the presence of her daughter. 02/06/2019-as above 02/07/2019-continue to encourage tobacco cessation. - Time Time Spent with patient: 15-24 minutes Smoking Cessation Education: 3 to 10 minutes Medications reviewed and adjusted accordingly: Yes
[2019-02-07] MEDS: ALPRAZOLAM 0.25 MG TABLET PO PRN (19:58)
[2019-02-07] MEDS: AZITHROMYCIN 500 MG in DEXTROSE 5%-WATER 250 ML IV SCH (21:25)
[2019-02-07] MEDS: GABAPENTIN 300 MG CAPSULE PO SCH (21:25)
[2019-02-07] MEDS: MONTELUKAST SODIUM 10 MG TABLET PO SCH (21:25)
[2019-02-07] MEDS: PHARMACY COMMUNICATION ORDER MC SCH (21:27)
[2019-02-08] MEDS: IPRATROPIUM/ALBUTEROL 0.5-2.5 MG/3 ML AMPUL NEB SCH ×6 (00:11→21:12)
[2019-02-08] MEDS: PANTOPRAZOLE SODIUM 20 MG TABLET.DR PO SCH (06:11)
[2019-02-08] MEDS: METHYLPREDNISOLONE INJ 40 MG/1 ML SDV IV SCH ×3 (06:11→21:50)
[2019-02-08] MEDS: GUAIFENESIN SYRP 200 MG/10 ML UDC PO PRN ×2 (06:43→20:35)
[2019-02-08] MEDS: ACETAMINOPHEN 325 MG TABLET PO PRN ×2 (06:44→20:35)
[2019-02-08] MEDS: BUDESONIDE NEB 0.5 MG/2 ML AMPUL NEB SCH ×2 (07:42→21:12)
[2019-02-08] MEDS: ALPRAZOLAM 0.25 MG TABLET PO PRN ×2 (08:27→21:50)
[2019-02-08] MEDS: CALCIUM CARBONATE 250 MG/VITAMIN D3 125 UNIT TABLET PO SCH (09:46)
[2019-02-08] MEDS: ENOXAPARIN SODIUM INJ 40 MG/0.4 ML DISP.SYRIN SUBCUT SCH (09:46)
[2019-02-08] MEDS: AMLODIPINE BESYLATE 10 MG TABLET PO SCH (09:47)
[2019-02-08] MEDS: CETIRIZINE 10 MG TABLET PO SCH (09:47)
[2019-02-08] MEDS: DULOXETINE HCL 30 MG CAPSULE.DR PO SCH (09:47)
[2019-02-08] MEDS: NICOTINE 21 MG/24 HR PATCH.TD24 TD SCH (09:48)
[2019-02-08] MEDS: VANCOMYCIN HCL 750 MG in DEXTROSE 5%-WATER 250 ML IV SCH ×2 (09:48→21:00)
[2019-02-08] MEDS: POLYETHYLENE GLYCOL 3350 POWDER 17 GM/1 PACKET PO SCH (09:48)
[2019-02-08] MEDS: NORMAL SALINE 10 ML SDV (SCHEDULED) IV SCH ×2 (09:48→21:50)
[2019-02-08] MEDS: FLUTICASONE NASAL SPRAY 50 MCG/SPRY 120 SPRAY/16 GM NASL SCH ×2 (09:48→21:49)
--- NOTE | 2019-02-08 11:11 | PDOC PROGRESS REPORT ---
Subjective Progress Note for:: 02/08/19 Subjective:: The patient reports feeling better. She states that there is much less cough. She still requires a lot of BiPAP. Reason For Visit: COPD EXACERBATION ACUTE SINUSITIS Physical Exam Vital Signs: Temp Pulse Resp BP Pulse Ox 97.5 F 87 17 133/70 H 96 02/08/19 04:00 02/08/19 04:51 02/08/19 04:51 02/08/19 04:00 02/08/19 04:51 Pulse Oximeter Ambulatory Start: 02/06/19 12:41 Freq: ONCE Status: Active Protocol: Document 02/06/19 14:11 [facility] [place] 02/06/19 14:21 [facility] [id number] Exercise Oximetry Treatment Ambulating SpO2 Charge Now No Additional RT Notes Other unable to ambulate at this time spo2 88 on 5lpm cannula, pt wants to return to NIV Intake & Output 02/07/19 02/08/19 02/09/19 06:59 06:59 06:59 Intake Total 1270 800 Output Total 200 410 Balance 1070 390 Weight 95.4 kg 96 kg General appearance: PRESENT: cooperative, mild distress, well-developed Head exam: PRESENT: atraumatic, normocephalic Eye exam: PRESENT: conjunctiva pink. ABSENT: scleral icterus Ear exam: PRESENT: normal external ear exam Respiratory exam: PRESENT: symmetrical, tachypnea, wheezes - Still with occasional wheezes. ABSENT: accessory muscle use, rales Cardiovascular exam: PRESENT: RRR, +S1, +S2 GI/Abdominal exam: PRESENT: normal bowel sounds, soft. ABSENT: distended, tenderness Rectal exam: PRESENT: deferred Gentrourinary exam: ABSENT: indwelling catheter Extremities exam: ABSENT: pedal edema Musculoskeletal exam: PRESENT: normal inspection Neurological exam: PRESENT: alert, awake, oriented to person, oriented to place, oriented to time, oriented to situation, CN II-XII grossly intact. ABSENT: motor sensory deficit Psychiatric exam: PRESENT: anxious. ABSENT: agitated Focused psych exam: ABSENT: delusional, restlessness Results Laboratory Results: 02/04/19 05:27 02/07/19 09:00 02/07/19 09:00 Creatinine 0.80 Est GFR ( Amer) > 60 Est GFR (Non-Af Amer) > 60 02/02/19 05:20 Blood Blood Culture - Final NO GROWTH IN 5 DAYS 02/02/19 05:28 Blood Blood Culture - Final NO GROWTH IN 5 DAYS 01/29/19 01/29/19 22:04 22:04 Troponin I < 0.012 NT-Pro-B Natriuret Pep 250 Impressions: Chest CT 01/30/19 00:00 IMPRESSION: 1. Left lower lobe pneumonia. 2. Reticulonodular infiltrate in the right lung which will also need follow-up to exclude underlying malignancy. Chest X-Ray 02/05/19 06:00 IMPRESSION: Right upper lobe and left lower lobe pneumonia. Trace left pleural fluid Guidance Fluoroscopy 02/06/19 00:00 IMPRESSION: SUCCESSFUL PLACEMENT OF A 5 FR DUAL LUMEN 42 CM PICC IN THE LEFT BASILIC VEIN. Interventional Vascular Procedure 02/06/19 00:00 IMPRESSION: SUCCESSFUL PLACEMENT OF A 5 FR DUAL LUMEN 42 CM PICC IN THE LEFT BASILIC VEIN. PICC Line Insertion 02/06/19 00:00 IMPRESSION: SUCCESSFUL PLACEMENT OF A 5 FR DUAL LUMEN 42 CM PICC IN THE LEFT BASILIC VEIN. Assessment and Plan - Diagnosis (1) MRSA bacteremia Is this a current diagnosis for this admission?: Yes Plan: Blood cultures (01/30/2019) positive for MRSA in one bottle and growing gram- positive cocci in second set. Repeat blood cultures (02/02/19) pending. Patient denies history of endocarditis or artificial heart valves. However, she does report multiple orthopedic hardware devices (left hip, knee, ankle and right femoral shoshana). She reports that in 2012 she required replacement of femoral shoshana and 8 weeks of IV antibiotics for unknown bacterial infection. Anticipate patient will require minimum 4 weeks of IV antibiotics. We will obtain echocardiogram to evaluate for endocarditis. We will consult infectious disease for guidance. 02/04/2019-Dr. Vaughn of the infectious disease service was able to evaluate the patient's records. Because of the patient's prostheses it is recommended that she have at least 4 weeks of outpatient IV antibiotic therapy. The initial blood cultures that were drawn revealed the aerobic bottle from blood culture sent #1 grew MRSA. The aerobic bottle from the second set of blood cultures dr schumacher at that time had staph hominis. 2 sets of blood cultures drawn several days later are both no growth. Transthoracic echo was not suggestive of endocarditis. I will review infectious disease recommendations with patient tomorrow. It will be 48 hours with negative blood cultures and so a PICC line can be inserted at that time. 02/05/2019-as noted above despite only a single positive blood culture Dr. Vaughn has recommended long-term IV antibiotic therapy. The risk, considering her multiple prostheses, is high and we want to be aggressive. Her blood cultures have been negative for greater than 48 hours and so I have ordered a PICC line. We will obtain home infusion services and they will adjust her vancomycin dosing. 02/06/2019-the patient did have successful placement of a PICC line today. We will continue her vancomycin. Arrangements are being made for outpatient infusion services at home 02/07/2019-continue vancomycin therapy at this time. February 08, 2019-PICC line is in place and functioning. Long-term vancomycin for bacteremia with multiple prosthetic joints. Plan is unchanged. (2) Left lower lobe pneumonia Qualifiers: Pneumonia type: due to unspecified organism Qualified Code(s): J18.1 - Lobar pneumonia, unspecified organism Is this a current diagnosis for this admission?: Yes Plan: Continue Levaquin 02/04/2019-this is most likely a community-acquired pneumonia. 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 We will continue the vancomycin and levofloxacin at this time with the vancomycin more dedicated to the MRSA blood culture. 02/05/2019-she will complete her course of levofloxacin and as noted above will be on vancomycin long-term. Faint rhonchi remain on the left but she did not cough once during this encounter. She was also on nasal cannula and not BiPAP. 02/06/2019-the patient actually seems to be losing ground as opposed to improving. She is still on vancomycin and levofloxacin. She does work in a nursery and so other considerations could be viral. If she does not start to improve and may need to change the levofloxacin or add another agent. I did make changes to her regimen as outlined in the entry for COPD. 02/07/2019-there is a possibility, since the patient works in a nursery, that she might have Bordetella pertussis. I ordered a nasal swab and discontinued her Levaquin in favor of azithromycin. February 08, 2019-the Bordetella pertussis swab has been submitted. The patient is on azithromycin. She reports feeling better today. Am not sure if 1 dose of azithromycin is adequate to make such a clinical change but we will continue her current treatment plan. We will also try high flow nasal cannula. (3) Acute respiratory failure with hypoxia Is this a current diagnosis for this admission?: Yes Plan: Significantly improved; and maintaining oxygen saturations for periods of time on nasal cannula. Continues to use intermittent BiPAP. Multifactorial secondary to LLL PNA and COPD exacerbation. Patient is admitted to the medical floor on continuous telemetry. Supplemental oxygen and BiPAP as needed to maintain saturations >89% Scheduled and as needed nebulizer treatments IV Solumedrol; have begun weaning Mucinex twice daily Empirically placed on IV Levaquin (day #4) have added vancomycin secondary to MRSA bacteremia. Incentive spirometer and flutter valve to bedside. 02/04/2019-patient still has a very pronounced barking cough. I will increase her nebulizer treatments. I have also added Singulair. She still requires B iPAP therapy quite consistently. She did have PFTs performed in they suggest severe COPD. 02/05/2019-as noted above she is improved today. PFTs did exhibit severe COPD. I will start her on a regimen geared toward outpatient therapy in the next day or so. She will need follow-up with a flexboard operator as an outpatient. I strongly suggested that she continue tobacco cessation. In addition she is supposed to be on CPAP but has not worn it for many years. She was also admonished about her noncompliance. The patient did have pulmonary function testing earlier in this hospitalization. As noted above it revealed severe COPD. I will increase the frequency of the patient's DuoNeb treatments. I will keep the budesonide every 12 hours for the time being. I also will change back from oral steroid therapy to intravenous Solu-Medrol. I will also discuss with pulmonology in terms of obtaining a consult. In addition, because of her high oxygen requirements, I have ordered ambulatory pulse oximetry to qualify the patient for home oxygen therapy. 02/06/2019-no change in treatment plan from yesterday 02/07/2019-still requiring a significant amount of time on BiPAP. Her daughter did bring her CPAP machine in. The patient reported that her daughter will be bringing the machine to the vendor to have it checked. It is possible that this unit can provide BiPAP service but the patient will need to be more stable prior to discharge. February 08, 2019-she is still requiring significant amount of treatment with BiPAP. We did plug in her CPAP machine and it does work. It still should be evaluated by the [employer]. We are not sure of the pressures. Currently she is on 12 and 6 on BiPAP. She will also likely need an oxygen bleed in. We have not been able to achieve ambulatory oximetry at this point since she is too dyspneic. (4) Abnormal CT of the chest Is this a current diagnosis for this admission?: Yes Plan: Patient needs follow-up CT chest in the coming 3 to 6 months. 02/04/2019-there were several abnormal findings on the chest CT. This is in addition to the pneumonia. The patient will need outpatient follow-up with repeat CT scan in approximately 3 months. 02/[id number] CT as an outpatient 02/06/2019-as above 02/07/2019- follow-up as an outpatient February 08, 2019-plan unchanged. The patient will certainly be following up with pulmonology after discharge and they can monitor the repeat CT scan. (5) Morbid obesity with BMI of 40.0-44.9, adult Is this a current diagnosis for this admission?: Yes Plan: Lifestyle modification advised. 02/04/2019-encourage diet and exercise. Exercise is limited due to the multiple prosthetic joints and her current respiratory status. A pronounced focus on diet would be suggested. 02/05/2019-during today's encounter I discovered that she is noncompliant with her CPAP and I explained to her this contributes to obesity as well as multiple other comorbidities. I strongly encouraged her to resume CPAP. 02/06/2019, as above 02/07/2019-aggressive dieting after this acute illness resolves February 08, 2019-continue same treatment plan (6) Tobacco dependence Is this a current diagnosis for this admission?: Yes Plan: Patient encouraged and counseled to quit smoking. 02/04/2019-continue nicotine patch and encourage smoking cessation. 02/05/2019-another discussion about tobacco cessation was had today in the presence of her daughter. 02/06/2019-as above 02/07/2019-continue to encourage tobacco cessation. February 08, 2019-continue the plan for ongoing coaching for cessation after discharge. With the severity of this illness, she exhibits a dedicated effort for not returning to tobacco use. - Time Time Spent with patient: 15-24 minutes Smoking Cessation Education: 3 to 10 minutes Medications reviewed and adjusted accordingly: Yes
[2019-02-08] MEDS: LIDOCAINE 5% (700 MG) TRANSDERMAL ADH..PATCH TP SCH (12:50)
[2019-02-08 18:58] LABS: ARTERIAL BLOOD BASE EXCESS 5.9 mmol/L; ARTERIAL BLOOD FIO2 65%; ARTERIAL BLOOD H2CO3 1.11 mmol/L (1.05-1.35); ARTERIAL BLOOD O2 SATURATION 94.6 % (94-98); ARTERIAL BLOOD PCO2 36.8 mmHg (35-45); ARTERIAL BLOOD PH 7.52 (7.35-7.45); ARTERIAL BLOOD PO2 64.7 mmHg (80-100); ARTERIAL BLOOD TOTAL CO2 30.2 mmol/L (21-25)
[2019-02-08] MEDS: MONTELUKAST SODIUM 10 MG TABLET PO SCH (21:50)
[2019-02-08] MEDS: GABAPENTIN 300 MG CAPSULE PO SCH (21:50)
[2019-02-08] MEDS: PHARMACY COMMUNICATION ORDER MC SCH (21:50)
[2019-02-08] MEDS: AZITHROMYCIN 500 MG in DEXTROSE 5%-WATER 250 ML IV SCH (22:53)
[2019-02-09] MEDS: NORMAL SALINE 10 ML SDV (AFTER EACH USE) IV PRN ×3 (00:03→12:01)
[2019-02-09] MEDS: IPRATROPIUM/ALBUTEROL 0.5-2.5 MG/3 ML AMPUL NEB SCH ×6 (00:23→19:13)
[2019-02-09] MEDS: METHYLPREDNISOLONE INJ 40 MG/1 ML SDV IV SCH (05:51)
[2019-02-09] MEDS: PANTOPRAZOLE SODIUM 20 MG TABLET.DR PO SCH (05:51)
[2019-02-09] MEDS: GUAIFENESIN SYRP 200 MG/10 ML UDC PO PRN (06:45)
[2019-02-09] MEDS: BUDESONIDE NEB 0.5 MG/2 ML AMPUL NEB SCH ×2 (08:28→19:13)
[2019-02-09 09:05] LABS: HEMOGLOBIN 10.4 g/dL (12.0-15.5); MEAN CORPUSCULAR HEMOGLOBIN 32.9 pg (27.0-33.4); MEAN CORPUSCULAR HGB CONC 34.6 g/dL (32.0-36.0); MEAN CORPUSCULAR VOLUME 95 fl (80-97); PLATELET COUNT 306 10^3/uL (150-450); RED BLOOD COUNT 3.16 10^6/uL (3.72-5.28); RED CELL DISTRIBUTION WIDTH 13.6 % (11.5-14.0); WHITE BLOOD COUNT 11.3 10^3/uL (4.0-10.5)
[2019-02-09 09:25] LABS: ABSOLUTE LYMPHOCYTES# (MANUAL) 0.5 10^3/uL (0.5-4.7); ABSOLUTE MONOCYTES # (MANUAL) 0.1 10^3/uL (0.1-1.4); ABSOLUTE NEUTROPHILS# (MANUAL) 10.7 10^3/uL (1.7-8.2); BASOPHILS % (MANUAL) 0 % (0-2); EOSINOPHILS % (MANUAL) 0 % (0-6); LYMPHOCYTES % (MANUAL) 4 % (13-45); MONOCYTES % (MANUAL) 1 % (3-13); PLATELET COMMENT ADEQUATE; RBC MORPHOLOGY COMMENT NORMO-CYTIC/CHROMIC; SEGMENTED NEUTROPHILS % (MAN) 95 % (42-78); TOTAL CELLS COUNTED 100
[2019-02-09] MEDS: CALCIUM CARBONATE 250 MG/VITAMIN D3 125 UNIT TABLET PO SCH (09:32)
[2019-02-09] MEDS: POLYETHYLENE GLYCOL 3350 POWDER 17 GM/1 PACKET PO SCH (09:33)
[2019-02-09] MEDS: AMLODIPINE BESYLATE 10 MG TABLET PO SCH (09:33)
[2019-02-09] MEDS: CETIRIZINE 10 MG TABLET PO SCH (09:33)
[2019-02-09] MEDS: DULOXETINE HCL 30 MG CAPSULE.DR PO SCH (09:33)
[2019-02-09] MEDS: NICOTINE 21 MG/24 HR PATCH.TD24 TD SCH (09:34)
[2019-02-09 09:35] LABS: ANION GAP 9 (5-19); BLOOD UREA NITROGEN 19 mg/dL (7-20); CALCIUM 9.1 mg/dL (8.4-10.2); CARBON DIOXIDE 33 mmol/L (22-30); CHLORIDE 96 mmol/L (98-107); GLUCOSE 236 mg/dL (75-110); POTASSIUM 3.8 mmol/L (3.6-5.0); SODIUM 137.7 mmol/L (137-145)
[2019-02-09] MEDS: LIDOCAINE 5% (700 MG) TRANSDERMAL ADH..PATCH TP SCH (09:35)
[2019-02-09] MEDS: FLUTICASONE NASAL SPRAY 50 MCG/SPRY 120 SPRAY/16 GM NASL SCH ×2 (09:42→21:20)
[2019-02-09] MEDS: VANCOMYCIN HCL 750 MG in DEXTROSE 5%-WATER 250 ML IV SCH ×2 (10:10→21:20)
[2019-02-09] MEDS: ENOXAPARIN SODIUM INJ 40 MG/0.4 ML DISP.SYRIN SUBCUT SCH (10:11)
[2019-02-09] MEDS: NORMAL SALINE 10 ML SDV (SCHEDULED) IV SCH ×2 (12:01→21:19)
--- NOTE | 2019-02-09 13:45 | PDOC PROGRESS REPORT ---
Subjective Progress Note for:: 02/09/19 Subjective:: 63 year old female with a past medical history of hypertension, dyslipidemia, morbid obesity, GERD, tobacco and recent sinus surgery November 25, 2018. Patient presents with 7 days of rhinorrhea, postnasal drip, nonproductive cough and shortness of breath prompting evaluation by her primary care provider she is placed on a prednisone taper and azithromycin. Without significant improvement symptoms significantly worsen prompting her to seek evaluation emergency room where she is found to be diaphoretic with accessory muscles and retractions, hypoxia of 88% on room air. She started on BiPAP receiving albuterol, Atrovent, with minimal improvement she is referred to the hospitalist for admission. She denies fever, facial pain but admits to previous history. 02/09/[id number]-pkua-old female with history of chronic smoking, COPD, hypertension, obesity admitted with upper respiratory tract symptoms and also with lower respiratory comes from. Pulmonology consult was requested during the hospital stay and ID consult was requested and Bordetella pertussis report is pending. Patient is on 65% high flow nasal cannula pulse ox is in the 80s. CT scan without contrast only suggestive of pneumonia. She never had these problems before. Plan to do the CTA of the chest to rule out PE. Reason For Visit: COPD EXACERBATION ACUTE SINUSITIS Physical Exam Vital Signs: Temp Pulse Resp BP Pulse Ox 98.1 F 65 18 168/80 H 96 02/09/19 12:00 02/09/19 12:36 02/09/19 12:36 02/09/19 12:00 02/09/19 12:36 Pulse Oximeter Ambulatory Start: 02/06/19 12:41 Freq: ONCE Status: Active Protocol: Document 02/06/19 14:11 [facility] [place] (Rec: 02/06/19 14:21 [facility] [place] [id number]) Exercise Oximetry Treatment Ambulating SpO2 Charge Now No Additional RT Notes Other unable to ambulate at this time spo2 88 on 5lpm cannula, pt wants to return to NIV Intake & Output 02/08/19 02/09/19 02/10/19 06:59 06:59 06:59 Intake Total 1050 3640 250 Output Total 410 0 Balance 640 3640 250 Weight 96 kg 97.1 kg General appearance: PRESENT: mild distress, obese Head exam: PRESENT: atraumatic Eye exam: PRESENT: PERRLA Mouth exam: PRESENT: moist, tongue midline Teeth exam: PRESENT: poor dentation Neck exam: ABSENT: carotid bruit, JVD, lymphadenopathy, thyromegaly Respiratory exam: PRESENT: clear to auscultation ashvin. ABSENT: rales, rhonchi, wheezes Cardiovascular exam: PRESENT: RRR, tachycardia. ABSENT: diastolic murmur, rubs, systolic murmur GI/Abdominal exam: PRESENT: normal bowel sounds, soft. ABSENT: distended, guarding, mass, organolmegaly, rebound, tenderness Rectal exam: PRESENT: deferred Extremities exam: PRESENT: full ROM. ABSENT: calf tenderness, clubbing, pedal edema Neurological exam: PRESENT: alert, awake, oriented to person, oriented to place, oriented to time, oriented to situation, CN II-XII grossly intact. ABSENT: motor sensory deficit Psychiatric exam: PRESENT: appropriate affect, normal mood. ABSENT: homicidal ideation, suicidal ideation Results Laboratory Results: 02/09/19 08:45 02/09/19 08:45 02/08/19 02/09/19 02/09/19 18:35 08:45 08:45 WBC 11.3 H RBC 3.16 L Hgb 10.4 L Hct 30.0 L MCV 95 MCH 32.9 MCHC 34.6 RDW 13.6 Plt Count 306 Seg Neutrophils % Not Reportable Lymphocytes % Not Reportable Monocytes % Not Reportable Eosinophils % Not Reportable Basophils % Not Reportable Absolute Neutrophils Not Reportable Absolute Lymphocytes Not Reportable Absolute Monocytes Not Reportable Absolute Eosinophils Not Reportable Absolute Basophils Not Reportable Carbonic Acid 1.11 HCO3/H2CO3 Ratio 26:1 ABG pH 7.52 H ABG pCO2 36.8 ABG pO2 64.7 L ABG HCO3 29.0 H ABG O2 Saturation 94.6 ABG Base Excess 5.9 FiO2 65% Sodium 137.7 Potassium 3.8 Chloride 96 L Carbon Dioxide 33 H Anion Gap 9 BUN 19 Creatinine 0.81 Est GFR ( Amer) > 60 Est GFR (Non-Af Amer) > 60 Glucose 236 H Calcium 9.1 Magnesium 2.4 H 01/29/19 01/29/19 22:04 22:04 Troponin I < 0.012 NT-Pro-B Natriuret Pep 250 Impressions: Chest CT 01/30/19 00:00 IMPRESSION: 1. Left lower lobe pneumonia. 2. Reticulonodular infiltrate in the right lung which will also need follow-up to exclude underlying malignancy. Chest X-Ray 02/05/19 06:00 IMPRESSION: Right upper lobe and left lower lobe pneumonia. Trace left pleural fluid Guidance Fluoroscopy 02/06/19 00:00 IMPRESSION: SUCCESSFUL PLACEMENT OF A 5 FR DUAL LUMEN 42 CM PICC IN THE LEFT BASILIC VEIN. Interventional Vascular Procedure 02/06/19 00:00 IMPRESSION: SUCCESSFUL PLACEMENT OF A 5 FR DUAL LUMEN 42 CM PICC IN THE LEFT BASILIC VEIN. PICC Line Insertion 02/06/19 00:00 IMPRESSION: SUCCESSFUL PLACEMENT OF A 5 FR DUAL LUMEN 42 CM PICC IN THE LEFT BASILIC VEIN. Assessment and Plan - Diagnosis (1) Acute respiratory failure with hypoxia Is this a current diagnosis for this admission?: Yes Plan: Continue bronchodilators and supplemental oxygen. Her Solu-Medrol switched to p.o. prednisone. X3 2019-patient is continued to receiving bronchodilators and on high flow oxygen via nasal cannula. Presently on p.o. prednisone. Latest WBC count is 11.3 Bordetella pertussis report is pending. Curseen is requested for pulmonary function test. Chest x-rays and CT scan suggestive of pneumonia plan is to do the CT chest with contrast today for further information. Patient is on IV Solu-Medrol 80 mg every 8 hours. (2) COPD with exacerbation Is this a current diagnosis for this admission?: Yes Plan: Without formal diagnosis, active long-term smoker. PFT pending. Remaining management as above. 02/09/2019-patient has history of COPD secondary to chronic smoking. Pulmonary function tests severe obstructive ventilatory defect. Responding well to the bronchodilators. (3) Left lower lobe pneumonia Qualifiers: Pneumonia type: due to unspecified organism Qualified Code(s): J18.1 - Lobar pneumonia, unspecified organism Is this a current diagnosis for this admission?: Yes Plan: Continue Levaquin 02/04/2019-this is most likely a community-acquired pneumonia. 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 We will continue the vancomycin and levofloxacin at this time with the vancomycin more dedicated to the MRSA blood culture. 02/05/2019-she will complete her course of levofloxacin and as noted above will be on vancomycin long-term. Faint rhonchi remain on the left but she did not cough once during this encounter. She was also on nasal cannula and not BiPAP. 02/06/2019-the patient actually seems to be losing ground as opposed to improving. She is still on vancomycin and levofloxacin. She does work in a nursery and so other considerations could be viral. If she does not start to improve and may need to change the levofloxacin or add another agent. I did make changes to her regimen as outlined in the entry for COPD. 02/07/2019-there is a possibility, since the patient works in a nursery, that she might have Bordetella pertussis. I ordered a nasal swab and discontinued her Levaquin in favor of azithromycin. February 08, 2019-the Bordetella pertussis swab has been submitted. The patient is on azithromycin. She reports feeling better today. Am not sure if 1 dose of azithromycin is adequate to make such a clinical change but we will continue her current treatment plan. We will also try high flow nasal cannula. 02/09/2019-Bordetella pertussis swab is pending. Presently on azithromycin ID consult was done. Presently on high flow nasal cannula at 65% and pulse ox is around the 80s. (4) MRSA bacteremia Is this a current diagnosis for this admission?: Yes Plan: Blood cultures (01/30/2019) positive for MRSA in one bottle and growing gram- positive cocci in second set. Repeat blood cultures (02/02/19) pending. Patient denies history of endocarditis or artificial heart valves. However, she does report multiple orthopedic hardware devices (left hip, knee, ankle and right femoral shoshana). She reports that in 2012 she required replacement of femoral shoshana and 8 weeks of IV antibiotics for unknown bacterial infection. Anticipate patient will require minimum 4 weeks of IV antibiotics. We will obtain echocardiogram to evaluate for endocarditis. We will consult infectious disease for guidance. 02/04/2019-Dr. Vaughn of the infectious disease service was able to evaluate the patient's records. Because of the patient's prostheses it is recommended that she have at least 4 weeks of outpatient IV antibiotic therapy. The initial blood cultures that were drawn revealed the aerobic bottle from blood culture sent #1 grew MRSA. The aerobic bottle from the second set of blood cultures drawn at that time had staph hominis. 2 sets of blood cultures drawn several days later are both no growth. Transthoracic echo was not suggestive of endocarditis. I will review infectious disease recommendations with patient jalenorrow. It will be 48 hours with negative blood cultures and so a PICC line can be inserted at that time. 02/05/2019-as noted above despite only a single positive blood culture Dr. Vaughn has recommended long-term IV antibiotic therapy. The risk, considering her mu ltiple prostheses, is high and we want to be aggressive. Her blood cultures have been negative for greater than 48 hours and so I have ordered a PICC line. We will obtain home infusion services and they will adjust her vancomycin dosing. 02/06/2019-the patient did have successful placement of a PICC line today. We will continue her vancomycin. Arrangements are being made for outpatient infusion services at home 02/07/2019-continue vancomycin therapy at this time. February 08, 2019-PICC line is in place and functioning. Long-term vancomycin for bacteremia with multiple prosthetic joints. Plan is unchanged. 02/09/2019-patient has a PICC line in place receiving IV vancomycin for MRSA bacteremia. (5) Tobacco abuse Is this a current diagnosis for this admission?: Yes Plan: Smoking cessation encouraged; nicotine replacement therapies are provided. 02/09/2019-smoking counseling was provided for more than 10 minutes today. - Time Time Spent with patient: 15-24 minutes Smoking Cessation Education: over 10 minutes Medications reviewed and adjusted accordingly: Yes Anticipated discharge: Home
[2019-02-09] MEDS: METHYLPREDNISOLONE INJ 125 MG/2 ML SDV IV SCH ×2 (14:39→21:18)
--- NOTE | 2019-02-09 15:55 | RADIOLOGY REPORT (SQ) ---
EXAM DESCRIPTION: CT CHEST WITH COMPLETED DATE/TIME: 02/09/2019 3:16 pm REASON FOR STUDY: resp distress COMPARISON: 01/30/2019 TECHNIQUE: CT scan of the chest performed using helical scanning technique with dynamic intravenous contrast injection. Images reviewed with lung, soft tissue and bone windows. Reconstructed coronal and sagittal MPR and MIP images reviewed. All images stored on PACS. All CT scanners at this facility use dose modulation, iterative reconstruction, and/or weight based d osing when appropriate to reduce radiation dose to as low as reasonably achievable (ALARA). [facility]: Dose Right [facility]: CareDose [facility]: Dose Right [facility]: Teradose 4D [facility]: Codarica CONTRAST TYPE AND DOSE: contrast/concentration: Isovue 350.00 mg/ml; Total Contrast Delivered: 80.0 ml; Total Saline Delivered: 55.0 ml RENAL FUNCTION: GFR > 60. RADIATION DOSE: CT Rad equipment meets quality standard of care and radiation dose reduction techniq ues were employed. CTDIvol: 18.3 mGy. DLP: 640 mGy-cm. . LIMITATIONS: None. FINDINGS: LUNGS AND PLEURA: Persistent subsegmental consolidation left lower lobe. Unchanged small left pleural effusion. Interval development of a small right pleural effusion. Increasing reticulon odular infiltrate along the right major fissure. No evidence of cavitation. HILAR AND MEDIASTINAL STRUCTURES: No identified masses or abnormal nodes. HEART AND VASCULAR STRUCTURES: No aneurysm or dissection. No central pulmonary emboli. No pericardi al effusion. HARDWARE: None in the chest. UPPER ABDOMEN: Gastric bypass. Limited exam. THYROID AND OTHER SOFT TISSUES: No masses. No adenopathy. BONES: No significant finding. OTHER: Left-sided PICC line tip in the SVC. IMPRESSION: Persistent consolidation in the left lower lobe. Increasing reticulonodular infiltrate along the right major fissure. Interval development of small right pleural effusion. TECHNICAL DOCUMENTATION: JOB ID: [id number] Quality ID # [id number]: Final reports with documentation of one or more dose reduction techniques (e.g., Au tomated exposure control, adjustment of the mA and/or kV according to patient size, use of iterative reconstruction technique) 2010 [employer]- All Rights Reserved Reading location - IP/workstation name: [email or web address]
[2019-02-09] MEDS: ACETAMINOPHEN 325 MG TABLET PO PRN (18:06)
[2019-02-09] MEDS: MONTELUKAST SODIUM 10 MG TABLET PO SCH (21:18)
[2019-02-09] MEDS: PHARMACY COMMUNICATION ORDER MC SCH (21:19)
[2019-02-09] MEDS: GABAPENTIN 300 MG CAPSULE PO SCH (21:19)
[2019-02-09] MEDS: ALPRAZOLAM 0.25 MG TABLET PO PRN (21:19)
[2019-02-09] MEDS: AZITHROMYCIN 500 MG in DEXTROSE 5%-WATER 250 ML IV SCH (23:37)
[2019-02-10] MEDS: NORMAL SALINE 10 ML SDV (AFTER EACH USE) IV PRN ×3 (01:15→11:41)
[2019-02-10] MEDS: IPRATROPIUM/ALBUTEROL 0.5-2.5 MG/3 ML AMPUL NEB SCH ×6 (01:15→19:45)
[2019-02-10] MEDS: METHYLPREDNISOLONE INJ 125 MG/2 ML SDV IV SCH ×3 (05:28→22:00)
[2019-02-10] MEDS: PANTOPRAZOLE SODIUM 20 MG TABLET.DR PO SCH (05:28)
[2019-02-10 06:00] LABS: HEMATOCRIT 28.6 % (36.0-47.0); HEMOGLOBIN 9.7 g/dL (12.0-15.5); MEAN CORPUSCULAR HEMOGLOBIN 32.8 pg (27.0-33.4); MEAN CORPUSCULAR HGB CONC 33.9 g/dL (32.0-36.0); MEAN CORPUSCULAR VOLUME 97 fl (80-97); RED BLOOD COUNT 2.96 10^6/uL (3.72-5.28); RED CELL DISTRIBUTION WIDTH 12.9 % (11.5-14.0); WHITE BLOOD COUNT 10.1 10^3/uL (4.0-10.5)
[2019-02-10 06:12] LABS: ALANINE AMINOTRANSFERASE 45 U/L (9-52); ALBUMIN 2.6 g/dL (3.5-5.0); ALKALINE PHOSPHATASE 164 U/L (38-126); ANION GAP 10 (5-19); ASPARTATE AMINO TRANSFERASE 12 U/L (14-36); BILIRUBIN,DIRECT 0.2 mg/dL (0.0-0.4); BILIRUBIN,TOTAL 0.3 mg/dL (0.2-1.3); BLOOD UREA NITROGEN 21 mg/dL (7-20); CALCIUM 9.1 mg/dL (8.4-10.2); CARBON DIOXIDE 30 mmol/L (22-30); CHLORIDE 95 mmol/L (98-107); GLUCOSE 354 mg/dL (75-110); POTASSIUM 3.6 mmol/L (3.6-5.0); SODIUM 135.2 mmol/L (137-145); TOTAL PROTEIN 5.1 g/dL (6.3-8.2)
[2019-02-10 07:29] LABS: ABSOLUTE LYMPHOCYTES# (MANUAL) 0.2 10^3/uL (0.5-4.7); ABSOLUTE MONOCYTES # (MANUAL) 0.3 10^3/uL (0.1-1.4); ABSOLUTE NEUTROPHILS# (MANUAL) 9.6 10^3/uL (1.7-8.2); BAND NEUTROPHILS % (MANUAL) 2 % (3-5); BASOPHILS % (MANUAL) 0 % (0-2); EOSINOPHILS % (MANUAL) 0 % (0-6); LYMPHOCYTES % (MANUAL) 2 % (13-45); METAMYELOCYTES % (MANUAL) 3 % (0); MONOCYTES % (MANUAL) 3 % (3-13); MYELOCYTES % (MANUAL) 1 % (0); SEGMENTED NEUTROPHILS % (MAN) 89 % (42-78); TOTAL CELLS COUNTED 100
[2019-02-10] MEDS: BUDESONIDE NEB 0.5 MG/2 ML AMPUL NEB SCH ×2 (07:29→19:45)
[2019-02-10 07:30] LABS: HYPOCHROMASIA 1+
[2019-02-10 07:32] LABS: PLATELET COMMENT ADEQUATE; PLATELET COUNT 291 10^3/uL (150-450)
[2019-02-10] MEDS: GUAIFENESIN SYRP 200 MG/10 ML UDC PO PRN (08:07)
[2019-02-10] MEDS: NICOTINE 21 MG/24 HR PATCH.TD24 TD SCH (09:15)
[2019-02-10] MEDS: POLYETHYLENE GLYCOL 3350 POWDER 17 GM/1 PACKET PO SCH (09:15)
[2019-02-10] MEDS: CETIRIZINE 10 MG TABLET PO SCH (09:16)
[2019-02-10] MEDS: DULOXETINE HCL 30 MG CAPSULE.DR PO SCH (09:16)
[2019-02-10] MEDS: LIDOCAINE 5% (700 MG) TRANSDERMAL ADH..PATCH TP SCH (09:16)
[2019-02-10] MEDS: AMLODIPINE BESYLATE 10 MG TABLET PO SCH (09:16)
[2019-02-10] MEDS: CALCIUM CARBONATE 250 MG/VITAMIN D3 125 UNIT TABLET PO SCH (09:17)
[2019-02-10] MEDS: ENOXAPARIN SODIUM INJ 40 MG/0.4 ML DISP.SYRIN SUBCUT SCH (09:17)
[2019-02-10] MEDS: FLUTICASONE NASAL SPRAY 50 MCG/SPRY 120 SPRAY/16 GM NASL SCH ×2 (10:03→21:58)
[2019-02-10] MEDS: VANCOMYCIN HCL 750 MG in DEXTROSE 5%-WATER 250 ML IV SCH (10:03)
[2019-02-10] MEDS: NORMAL SALINE 10 ML SDV (SCHEDULED) IV SCH ×2 (11:41→21:59)
[2019-02-10] MEDS ORDERED: DEXTROSE 50%-WATER 25 GM/50 ML DISP.SYRIN IV PRN ×2 (12:30)
[2019-02-10] MEDS ORDERED: GLUCAGON,HUMAN RECOMB 1 MG INJ IM PRN (12:30)
[2019-02-10] MEDS ORDERED: DEXTROSE 40% GEL 15 GM TUBE PO PRN ×2 (12:30)
--- NOTE | 2019-02-10 12:40 | PDOC PROGRESS REPORT ---
Subjective Progress Note for:: 02/10/19 Subjective:: 63 year old female with a past medical history of hypertension, dyslipidemia, morbid obesity, GERD, tobacco and recent sinus surgery November 25, 2018. Patient presents with 7 days of rhinorrhea, postnasal drip, nonproductive cough and shortness of breath prompting evaluation by her primary care provider she is placed on a prednisone taper and azithromycin. Without significant improvement symptoms significantly worsen prompting her to seek evaluation emergency room where she is found to be diaphoretic with accessory muscles and retractions, hypoxia of 88% on room air. She started on BiPAP receiving albuterol, Atrovent, with minimal improvement she is referred to the hospitalist for admission. She denies fever, facial pain but admits to previous history. 02/09/[id number]-alld-old female with history of chronic smoking, COPD, hypertension, obesity admitted with upper respiratory tract symptoms and also with lower respiratory comes from. Pulmonology consult was requested during the hospital stay and ID consult was requested and Bordetella pertussis report is pending. Patient is on 65% high flow nasal cannula pulse ox is in the 80s. CT scan without contrast only suggestive of pneumonia. She never had these problems before. Plan to do the CTA of the chest to rule out PE. 02/10/[id number]-apcl-old female admitted with acute respiratory distress with h ypoxia. Presently on 50% high flow nasal cannula pulse ox is 82%. Patient is crying and said that she is scared and worried about her health. In my opinion patient needs to go to IMCU because of the high flow oxygen requirements and a CT chest that was done yesterday shows consolidation. Reason For Visit: COPD EXACERBATION ACUTE SINUSITIS Physical Exam Vital Signs: Temp Pulse Resp BP Pulse Ox 98.3 F 88 20 160/73 H 92 02/10/19 12:00 02/10/19 12:00 02/10/19 12:00 02/10/19 12:00 02/10/19 12:00 Pulse Oximeter Ambulatory Start: 02/06/19 12:41 Freq: ONCE Status: Active Protocol: Document 02/06/19 14:11 [facility] [place] (Rec: 02/06/19 14:21 [facility] [place] [id number]) Exercise Oximetry Treatment Ambulating SpO2 Charge Now No Additional RT Notes Other unable to ambulate at this time spo2 88 on 5lpm cannula, pt wants to return to NIV Intake & Output 02/09/19 02/10/19 02/11/19 06:59 06:59 06:59 Intake Total 3640 1520 490 Output Total 0 Balance 3640 1520 490 Weight 97.1 kg 98.1 kg General appearance: PRESENT: mild distress, obese, other - Looks anxious and nervous and crying. Head exam: PRESENT: atraumatic Eye exam: PRESENT: PERRLA Mouth exam: PRESENT: moist, tongue midline Teeth exam: PRESENT: poor dentation Neck exam: ABSENT: carotid bruit, JVD, lymphadenopathy, thyromegaly Respiratory exam: PRESENT: crackles, decreased breath sounds Cardiovascular exam: PRESENT: tachycardia GI/Abdominal exam: PRESENT: normal bowel sounds, soft. ABSENT: distended, guarding, mass, organolmegaly, rebound, tenderness Rectal exam: PRESENT: deferred Extremities exam: PRESENT: full ROM. ABSENT: calf tenderness, clubbing, pedal edema Neurological exam: PRESENT: alert, awake, oriented to person, oriented to place, oriented to time, oriented to situation, CN II-XII grossly intact. ABSENT: motor sensory deficit Psychiatric exam: PRESENT: appropriate affect, normal mood. ABSENT: homicidal ideation, suicidal ideation Skin exam: PRESENT: dry, intact, warm. ABSENT: cyanosis, rash Results Laboratory Results: 02/10/19 05:30 02/10/19 05:30 02/10/19 02/10/19 05:30 05:30 WBC 10.1 RBC 2.96 L Hgb 9.7 L Hct 28.6 L MCV 97 MCH 32.8 MCHC 33.9 RDW 12.9 Plt Count 291 Seg Neutrophils % Not Reportable Lymphocytes % Not Reportable Monocytes % Not Reportable Eosinophils % Not Reportable Basophils % Not Reportable Absolute Neutrophils Not Reportable Absolute Lymphocytes Not Reportable Absolute Monocytes Not Reportable Absolute Eosinophils Not Reportable Absolute Basophils Not Reportable Sodium 135.2 L Potassium 3.6 Chloride 95 L Carbon Dioxide 30 Anion Gap 10 BUN 21 H Creatinine 0.86 Est GFR ( Amer) > 60 Est GFR (Non-Af Amer) > 60 Glucose 354 H Calcium 9.1 Magnesium 2.2 Total Bilirubin 0.3 AST 12 L ALT 45 Alkaline Phosphatase 164 H Total Protein 5.1 L Albumin 2.6 L 01/29/19 01/29/19 22:04 22:04 Troponin I < 0.012 NT-Pro-B Natriuret Pep 250 Impressions: Chest X-Ray 02/05/19 06:00 IMPRESSION: Right upper lobe and left lower lobe pneumonia. Trace left pleural fluid Guidance Fluoroscopy 02/06/19 00:00 IMPRESSION: SUCCESSFUL PLACEMENT OF A 5 FR DUAL LUMEN 42 CM PICC IN THE LEFT BASILIC VEIN. Interventional Vascular Procedure 02/06/19 00:00 IMPRESSION: SUCCESSFUL PLACEMENT OF A 5 FR DUAL LUMEN 42 CM PICC IN THE LEFT BASILIC VEIN. PICC Line Insertion 02/06/19 00:00 IMPRESSION: SUCCESSFUL PLACEMENT OF A 5 FR DUAL LUMEN 42 CM PICC IN THE LEFT BASILIC VEIN. Chest CT 02/09/19 00:00 IMPRESSION: Persistent consolidation in the left lower lobe. Increasing reticulonodular infiltrate along the right major fissure. Interval development of small right pleural effusion. Assessment and Plan - Diagnosis (1) Acute respiratory failure with hypoxia Is this a current diagnosis for this admission?: Yes Plan: Continue bronchodilators and supplemental oxygen. Her Solu-Medrol switched to p.o. prednisone. 02/09/2019-patient is continued to receiving bronchodilators and on high flow oxygen via nasal cannula. Presently on p.o. prednisone. Latest WBC count is 11.3 Bordetella pertussis report is pending. Curseen is requested for pulmonary function test. Chest x-rays and CT scan suggestive of pneumonia plan is to do the CT chest with contrast today for further information. Patient is on IV Solu-Medrol 80 mg every 8 hours. 02/10/[id number]-dcur-old female admitted with acute respiratory failure with hypoxia presently on 50% high flow nasal cannula oxygen pulse ox is 92%. CT chest with contrast was done yesterday negative for PE but shows left lower lobe consolidation, increasing reticulonodular infiltrate along the right major fissure and small new right pleural effusion. Test for Bordetella pertussis is pending plan is to transfer the patient to [facility] because of the high oxygen requirements. (2) COPD with exacerbation Is this a current diagnosis for this admission?: Yes Plan: Without formal diagnosis, active long-term smoker. PFT pending. Remaining management as above. 02/09/2019-patient has history of COPD secondary to chronic smoking. Pulmonary function tests severe obstructive ventilatory defect. Responding well to the bronchodilators. 02/10/2019-patient has history of COPD secondary to chronic smoking. Recent pulmonary function test indicates severe obstructive ventilatory defect. The cotton factor opinion is responding well to the bronchodilators. Presently she is on IV Solu-Medrol 80 mg every 8 hours. Plan is to continue the present management ID consult was requested also. (3) Left lower lobe pneumonia Qualifiers: Pneumonia type: due to unspecified organism Qualified Code(s): J18.1 - Lobar pneumonia, unspecified organism Is this a current diagnosis for this admission?: Yes Plan: Continue Levaquin 02/04/2019-this is most likely a community-acquired pneumonia. 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 We will continue the vancomycin and levofloxacin at this time with the vancomycin more dedicated to the MRSA blood culture. 02/05/2019-she will complete her course of levofloxacin and as noted above will be on vancomycin long-term. Faint rhonchi remain on the left but she did not cough once during this encounter. She was also on nasal cannula and not BiPAP. 02/06/2019-the patient actually seems to be losing ground as opposed to improving. She is still on vancomycin and levofloxacin. She does work in a nursery and so other considerations could be viral. If she does not start to improve and may need to change the levofloxacin or add another agent. I did make changes to her regimen as outlined in the entry for COPD. 02/07/2019-there is a possibility, since the patient works in a nursery, that she might have Bordetella pertussis. I ordered a nasal swab and discontinued her Levaquin in favor of azithromycin. February 08, 2019-the Bordetella pertussis swab has been submitted. The patient is on azithromycin. She reports feeling better today. Am not sure if 1 dose of azithromycin is adequate to make such a clinical change but we will continue her current treatment plan. We will also try high flow nasal cannula. 02/09/2019-Bordetella pertussis swab is pending. Presently on azithromycin ID co nsult was done. Presently on high flow nasal cannula at 65% and pulse ox is around the 80s. 02/10/2019-CT chest that was done yesterday indicates persistent left lower lobe pneumonia. Presently on azithromycin and IV vancomycin ID consult was requested. Pulse ox is 92% on 50% high flow oxygen. ID consult was requested (4) MRSA bacteremia Is this a current diagnosis for this admission?: Yes Plan: Blood cultures (01/30/2019) positive for MRSA in one bottle and growing gram- positive cocci in second set. Repeat blood cultures (02/02/19) pending. Patient denies history of endocarditis or artificial heart valves. However, she does report multiple orthopedic hardware devices (left hip, knee, ankle and right femoral shoshana). She reports that in 2012 she required replacement of femoral shoshana and 8 weeks of IV antibiotics for unknown bacterial infection. Anticipate patient will require minimum 4 weeks of IV antibiotics. We will obtain echocardiogram to evaluate for endocarditis. We will consult infectious disease for guidance. 02/04/2019-Dr. Vaughn of the infectious disease service was able to evaluate the patient's records. Because of the patient's prostheses it is recommended that she have at least 4 weeks of outpatient IV antibiotic therapy. The initial blood cultures that were drawn revealed the aerobic bottle from blood culture sent #1 grew MRSA. The aerobic bottle from the second set of blood cultures drawn at that time had staph hominis. 2 sets of blood cultures drawn several days later are both no growth. Transthoracic echo was not suggestive of endocarditis. I will review infectious disease recommendations with patient tomorrow. It will be 48 hours with negative blood cultures and so a PICC line can be inserted at that time. 02/05/2019-as noted above despite only a single positive blood culture Dr. Vaughn has recommended long-term IV antibiotic therapy. The risk, considering her multiple prostheses, is high and we want to be aggressive. Her blood cultures have been negative for greater than 48 hours and so I have ordered a PICC line. We will obtain home infusion services and they will adjust her vancomycin dosing. 02/06/2019-the patient did have successful placement of a PICC line today. We will continue her vancomycin. Arrangements are being made for outpatient infusion services at home 02/07/2019-continue vancomycin therapy at this time. February 08, 2019-PICC line is in place and functioning. Long-term vancomycin for bacteremia with multiple prosthetic joints. Plan is unchanged. 02/09/2019-patient has a PICC line in place receiving IV vancomycin for MRSA bacteremia. 02/10/2019-patient is receiving IV vancomycin for MRSA bacteremia. Afebrile. (5) Tobacco abuse Is this a current diagnosis for this admission?: Yes - Time Time Spent with patient: 25-34 minutes Medications reviewed and adjusted accordingly: Yes Anticipated discharge: [facility]
[2019-02-10] MEDS: INSULIN REG, HUMAN 100 UNIT/ML 3 ML VIAL (PYX) SUBCUT SCH ×2 (15:43→21:59)
--- NOTE | 2019-02-10 15:47 | Progress Note ---
Provider Note Provider Note: ID Consult Note Asked to review patient's chart. Pt not seen or examined. Ms. Hurst is a 63 year old woman with HTN, GERD, severe COPD, morbid obesity s/p gastric bypass, tobacco use, and prior orthopedic surgeries with hardware placement, and recent sinus surgery. Prior to admission she had c/o dry cough, SOB, postnasal drip for which she was prescribed azithromycin and prednisone taper without much improvement in symptoms as an outpatient, and she came to the ED on 01/29 and was admitted. Pt had CT chest on 01/30 that was read as showing LLL PNA and reticulonodular infiltrate in R lung. She had no sputum cultures sent earlier in her admission. She had blood cultures done on 01/30 that grew MRSA in one bottle and Staphylococcus hominis in the other. Repeat BCx on 02/02 were negative. TTE on 02/01 showed impaired LV relaxation/mild diastolic dysfunction and no stenotic or regurgitant valvular lesions although study was limited in ability to assess for vegetations. Pt was managed with steroids, supplemental O2, bronchodilators. She was given vancomycin for the MRSA in her blood and Levaquin from 01/30 to present empirically. Pt reported decreased cough, still had occasional wheezes on exam. She continued to have high oxygen requirements and treatment with BiPAP. As she had a pronounced barking cough and works as an RN, raising suspicion of Bordetella pertussis for which azithromycin was added pending test result. Repeat CT scan of the chest on 02/09 was read as showing persistent subsegmental consolidation in LLL, unchanged small L pleural effusion and interval development of R pleural effusion with increasing reticulonodular infiltrate along R major fissure. Impression/Recommendations 1. complicated MRSA bacteremia - as outlined previously. - At a minimum 4 weeks of vancomycin IV; anticipated end date 03/02. 2. Nonresponding pneumonia Possibilities include - Parapneumonic effusion or empyema on the right? Diagnostic thoracentesis would be prudent. Bacterial culture and gram stain in addition to usual studies and, if there is enough fluid for this also AFB culture. If lymphocytic exudate, send ADA. - Is there a pathogen that would not be covered by vancomycin/Levaquin empiric CAP therapy? 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 Any suggestive hx of night sweats, fevers, unintentional weight loss preceding her admission or recent PPD conversion? If not done, consider TB skin test, but it cannot rule out active TB. Consider airborne isolation. If she has productive cough, submit sputum for AFB smear and culture. If no productive cough, enlist respiratory therapy assistance to induce sputum - Exacerbation of comorbid illness can lead to delayed improvement in pneumonia - Pulmonlogy involvement may be helpful. - Is there some component that is noninfectious but related to the MRSA bacteremia, such as worsened CHF or a metastatic infection from endocarditis with septic pulmonary emboli? There are no peripheral nodular lesions on the L and the appearance of the R sided lesion initially from CT 01/30 was not particularly suggestive. However, quality of her TTE was poor with regard to r/o vavular vegetation. If she is not improving as expected, then less probable etiologies may need to be explored. Consider DEEPTI if an answer is not forthcoming with workup otherwise. Dg Vaughn MD [facility] Infectious Diseases pager [phone]
[2019-02-10] MEDS: MONTELUKAST SODIUM 10 MG TABLET PO SCH (21:57)
[2019-02-10] MEDS: GABAPENTIN 300 MG CAPSULE PO SCH (21:57)
[2019-02-10] MEDS: ALPRAZOLAM 0.25 MG TABLET PO PRN (21:57)
[2019-02-10] MEDS: PHARMACY COMMUNICATION ORDER MC SCH (22:00)
[2019-02-10] MEDS: AZITHROMYCIN 500 MG in DEXTROSE 5%-WATER 250 ML IV SCH (22:00)
[2019-02-11] MEDS: IPRATROPIUM/ALBUTEROL 0.5-2.5 MG/3 ML AMPUL NEB SCH ×7 (00:09→23:52)
[2019-02-11] MEDS: NORMAL SALINE 10 ML SDV (AFTER EACH USE) IV PRN ×2 (01:55→05:51)
[2019-02-11] MEDS: METHYLPREDNISOLONE INJ 125 MG/2 ML SDV IV SCH ×3 (05:50→21:48)
[2019-02-11] MEDS: PANTOPRAZOLE SODIUM 20 MG TABLET.DR PO SCH (05:51)
[2019-02-11 06:17] LABS: HEMATOCRIT 28.6 % (36.0-47.0); HEMOGLOBIN 9.8 g/dL (12.0-15.5); MEAN CORPUSCULAR HEMOGLOBIN 32.8 pg (27.0-33.4); MEAN CORPUSCULAR HGB CONC 34.3 g/dL (32.0-36.0); MEAN CORPUSCULAR VOLUME 96 fl (80-97); PLATELET COUNT 292 10^3/uL (150-450); RED BLOOD COUNT 2.99 10^6/uL (3.72-5.28); RED CELL DISTRIBUTION WIDTH 13.3 % (11.5-14.0); WHITE BLOOD COUNT 11.2 10^3/uL (4.0-10.5)
[2019-02-11 06:33] LABS: ALANINE AMINOTRANSFERASE 39 U/L (9-52); ALBUMIN 2.7 g/dL (3.5-5.0); ALKALINE PHOSPHATASE 143 U/L (38-126); ANION GAP 7 (5-19); ASPARTATE AMINO TRANSFERASE 10 U/L (14-36); BILIRUBIN,DIRECT 0.2 mg/dL (0.0-0.4); BILIRUBIN,TOTAL 0.3 mg/dL (0.2-1.3); BLOOD UREA NITROGEN 20 mg/dL (7-20); CALCIUM 9.2 mg/dL (8.4-10.2); CARBON DIOXIDE 34 mmol/L (22-30); CHLORIDE 96 mmol/L (98-107); GLUCOSE 228 mg/dL (75-110); POTASSIUM 3.5 mmol/L (3.6-5.0); SODIUM 137.3 mmol/L (137-145); TOTAL PROTEIN 5.2 g/dL (6.3-8.2)
[2019-02-11 07:08] LABS: ABSOLUTE LYMPHOCYTES# (MANUAL) 0.2 10^3/uL (0.5-4.7); ABSOLUTE MONOCYTES # (MANUAL) 0.1 10^3/uL (0.1-1.4); ABSOLUTE NEUTROPHILS# (MANUAL) 10.9 10^3/uL (1.7-8.2); BAND NEUTROPHILS % (MANUAL) 2 % (3-5); BASOPHILS % (MANUAL) 0 % (0-2); EOSINOPHILS % (MANUAL) 0 % (0-6); LYMPHOCYTES % (MANUAL) 2 % (13-45); MONOCYTES % (MANUAL) 1 % (3-13); SEGMENTED NEUTROPHILS % (MAN) 95 % (42-78); TOTAL CELLS COUNTED 100
[2019-02-11 07:09] LABS: PLATELET COMMENT ADEQUATE; RBC MORPHOLOGY COMMENT NORMO-CYTIC/CHROMIC
[2019-02-11] MEDS: BUDESONIDE NEB 0.5 MG/2 ML AMPUL NEB SCH ×2 (07:47→20:07)
[2019-02-11] MEDS: INSULIN REG, HUMAN 100 UNIT/ML 3 ML VIAL (PYX) SUBCUT SCH ×5 (08:23→21:47)
[2019-02-11] MEDS ORDERED: TUBERCULIN,PURIF.PROT.DERIV. 5 TU/0.1 ML TEST 1 ML VIAL ID ONE (09:30)
[2019-02-11 10:08] LABS: INTERNATIONAL RATION (INR) 0.89; PROTHROMBIN TIME 12.5 SEC (11.4-15.4)
[2019-02-11 10:09] LABS: PARTIAL THROMBOPLASTIN TIME 22.4 SEC (23.5-35.8)
[2019-02-11 10:42] LABS: ARTERIAL BLOOD BASE EXCESS 7.1 mmol/L; ARTERIAL BLOOD FIO2 6L; ARTERIAL BLOOD H2CO3 1.14 mmol/L (1.05-1.35); ARTERIAL BLOOD HCO3 30.3 mmol/L (20-24); ARTERIAL BLOOD PH 7.52 (7.35-7.45); ARTERIAL BLOOD TOTAL CO2 31.4 mmol/L (21-25)
[2019-02-11] MEDS: AMLODIPINE BESYLATE 10 MG TABLET PO SCH (11:16)
[2019-02-11] MEDS: DULOXETINE HCL 30 MG CAPSULE.DR PO SCH (11:16)
[2019-02-11] MEDS: CETIRIZINE 10 MG TABLET PO SCH (11:16)
[2019-02-11] MEDS: CALCIUM CARBONATE 250 MG/VITAMIN D3 125 UNIT TABLET PO SCH (11:17)
[2019-02-11] MEDS: ENOXAPARIN SODIUM INJ 40 MG/0.4 ML DISP.SYRIN SUBCUT SCH (11:17)
[2019-02-11] MEDS: NORMAL SALINE 10 ML SDV (SCHEDULED) IV SCH ×2 (11:19→21:47)
[2019-02-11] MEDS: LIDOCAINE 5% (700 MG) TRANSDERMAL ADH..PATCH TP SCH (11:19)
[2019-02-11] MEDS: POLYETHYLENE GLYCOL 3350 POWDER 17 GM/1 PACKET PO SCH (11:19)
[2019-02-11] MEDS: NICOTINE 21 MG/24 HR PATCH.TD24 TD SCH (11:20)
[2019-02-11] MEDS: VANCOMYCIN HCL 750 MG in DEXTROSE 5%-WATER 250 ML IV SCH ×4 (11:21→21:49)
[2019-02-11] MEDS: FLUTICASONE NASAL SPRAY 50 MCG/SPRY 120 SPRAY/16 GM NASL SCH ×2 (11:34→22:03)
--- NOTE | 2019-02-11 15:43 | RADIOLOGY REPORT (SQ) ---
EXAM DESCRIPTION: CHEST SINGLE VIEW COMPLETED DATE/TIME: 02/11/2019 3:31 pm REASON FOR STUDY: S/P Thoracentesis COMPARISON: 02/05/2019 EXAM PARAMETERS: NUMBER OF VIEWS: One view. TECHNIQUE: Single frontal radiographic view of the chest acquired. RADIATION DOSE: NA LIMITATIONS: None. FINDINGS: Small residual left pleural effusion without significant pneumothorax status post thoracen tesis. Left upper extremity PICC. No new airspace opacity. IMPRESSION: Small residual left pleural effusion without significant pneumothorax status post thorac entesis. Left upper extremity PICC. No new airspace opacity. TECHNICAL DOCUMENTATION: JOB ID: [id number] [employer]- All Rights Reserved Reading location - IP/workstation name: [email or web address]
--- NOTE | 2019-02-11 16:28 | RADIOLOGY REPORT (SQ) ---
EXAM DESCRIPTION: U/S THORACENTESIS WITH IMAGING COMPLETED DATE/TIME: 02/11/2019 3:49 pm REASON FOR STUDY: Diagnostic; Worsening PNA despite aggressive abx COMPARISON: 02/09/2019 LIMITATIONS: None. PROCEDURE: Procedure, risks, benefit, and alternative explained to patient who then gave written con sent. The posterior right chest wall was marked using ultrasound guidance. A time-out was called fo r correct marking verification. Chest prepped and draped using sterile technique. Local anesthesia a chieved using 10 ml of 1% lidocaine injection. A 6fr Safe-T- Centesis set was introduced into the [facility] pleural space. Fluid was aspirated. The catheter was removed and the entry site was covered wit h sterile bandage. No immediate complications noted. Images acquired during the procedure were stored on PACS. FINDINGS: ENTRY SITE: posterior right chest. FLUID VOLUME: 400 cc FLUID ANALYSIS: Serosanguineous OTHER: Fluid sent to the lab for testing. IMPRESSION: SUCCESSFUL THORACENTESIS USING ULTRASOUND GUIDANCE. COMMENT: Patient medication list reviewed: Yes- Quality ID# [id number]:Eligible professional attests to doc umenting in the medical record they obtained, updated, or reviewed the patient's current medications. TECHNICAL DOCUMENTATION: JOB ID: [id number] [employer]- All Rights Reserved Reading location - IP/workstation name: [email or web address]
[2019-02-11 17:14] LABS: FLUID APPEARANCE SLIGHTLY HAZY; FLUID COLOR ORANGE; FLUID SOURCE LUNG; FLUID TYPE PLEURAL; FLUID VISCOSITY LIQUID
--- NOTE | 2019-02-11 18:04 | RADIOLOGY REPORT (SQ) ---
EXAM DESCRIPTION: CHEST SINGLE VIEW COMPLETED DATE/TIME: 02/11/2019 5:51 pm REASON FOR STUDY: 2hrs S/P THORA COMPARISON: 02/11/2019 EXAM PARAMETERS: NUMBER OF VIEWS: One view. TECHNIQUE: Single frontal radiographic view of the chest acquired. RADIATION DOSE: NA LIMITATIONS: None. FINDINGS: LUNGS AND PLEURA: Decrease left pleural effusion. Minimal parenchymal opacities stable. No pneumothorax status post procedure. MEDIASTINUM AND HILAR STRUCTURES: No masses. Contour normal. HEART AND VASCULAR STRUCTURES: Heart normal in size. Normal vasculature. BONES: No acute findings. HARDWARE: Venous access catheter unchanged. OTHER: No other significant finding. IMPRESSION: Decrease in the left pleural effusion. No pneumothorax status post procedure. TECHNICAL DOCUMENTATION: JOB ID: [id number] [facility]- All Rights Reserved Reading location - IP/workstation name: [email or web address]
--- NOTE | 2019-02-11 21:21 | PDOC PROGRESS REPORT ---
Subjective Progress Note for:: 02/11/19 Subjective:: ONIEL AVILA is a 63 year old female with a past medical history of hypertension, dyslipidemia, morbid obesity, GERD, tobacco and recent sinus surgery November 25, 2018 admitted 01/30/19 for COPD exacerbation. Patient was seen on morning rounds. She was found to be resting comfortably on NC at 4lpm. She reports that she is actually feeling much better today; relates this to a productive cough w/ clearance following shower. She denies continued chest wall discomfort. She further denies fever, chills, chest pain, palpitations, orthopnea, abdominal pain, nausea and vomiting. She does have continued dyspnea at rest and productive cough. She continues to require supplemental oxygen and BiPAP; she is not home O2 dependant. She has no specific questions, but is understandably anxious/frustrated by her prolong admission. No questions per nursing. Reason For Visit: COPD EXACERBATION ACUTE SINUSITIS Physical Exam Vital Signs: Temp Pulse Resp BP Pulse Ox 98.0 F 97 22 H 156/69 H 95 02/11/19 11:19 02/11/19 12:39 02/11/19 12:39 02/11/19 11:19 02/11/19 12:39 Pulse Oximeter Ambulatory Start: 02/06/19 12:41 Freq: ONCE Status: Active Protocol: Document 02/06/19 14:11 [facility] [place] (Rec: 02/06/19 14:21 [facility] [place] [id number][place] Exercise Oximetry Treatment Ambulating SpO2 Charge Now No Additional RT Notes Other unable to ambulate at this time spo2 88 on 5lpm cannula, pt wants to return to NIV Intake & Output 02/10/19 02/11/19 02/12/19 06:59 06:59 06:59 Intake Total 1520 1987 480 Output Total 1800 Balance 1520 187 480 Weight 98.1 kg 97.4 kg General appearance: PRESENT: no acute distress, cooperative, morbidly obese, well-developed, well-nourished Head exam: PRESENT: atraumatic, normocephalic Eye exam: PRESENT: conjunctiva pink, EOMI, PERRLA. ABSENT: scleral icterus Ear exam: PRESENT: normal external ear exam Mouth exam: PRESENT: moist, tongue midline Neck exam: ABSENT: carotid bruit, JVD, lymphadenopathy, thyromegaly Respiratory exam: PRESENT: prolonged expiratory phas, rhonchi - Lt lower roberto, symmetrical, unlabored, other - supplemental oxygen via NC. ABSENT: rales, wheezes Cardiovascular exam: PRESENT: RRR, +S1, +S2. ABSENT: diastolic murmur, rubs, systolic murmur Pulses: PRESENT: normal dorsalis pedis pul Vascular exam: PRESENT: normal capillary refill GI/Abdominal exam: PRESENT: normal bowel sounds, soft. ABSENT: distended, guarding, mass, organolmegaly, rebound, tenderness Rectal exam: PRESENT: deferred Extremities exam: PRESENT: full ROM, pedal edema - trace bilaterally. ABSENT: calf tenderness, clubbing Neurological exam: PRESENT: alert, awake, oriented to person, oriented to place, oriented to time, oriented to situation, CN II-XII grossly intact. ABSENT: motor sensory deficit Psychiatric exam: PRESENT: anxious - tearful, appropriate affect, normal mood. ABSENT: homicidal ideation, suicidal ideation Skin exam: PRESENT: dry, intact, warm. ABSENT: cyanosis, rash Results Laboratory Results: 02/11/19 05:55 02/11/19 05:55 02/11/19 02/11/19 02/11/19 05:55 05:55 10:20 WBC 11.2 H RBC 2.99 L Hgb 9.8 L Hct 28.6 L MCV 96 MCH 32.8 MCHC 34.3 RDW 13.3 Plt Count 292 Seg Neutrophils % Not Reportable Lymphocytes % Not Reportable Monocytes % Not Reportable Eosinophils % Not Reportable Basophils % Not Reportable Absolute Neutrophils Not Reportable Absolute Lymphocytes Not Reportable Absolute Monocytes Not Reportable Absolute Eosinophils Not Reportable Absolute Basophils Not Reportable Carbonic Acid 1.14 HCO3/H2CO3 Ratio 26:1 ABG pH 7.52 H ABG pCO2 38.0 ABG pO2 59.0 L ABG HCO3 30.3 H ABG O2 Saturation 93.0 L ABG Base Excess 7.1 FiO2 6L Sodium 137.3 Potassium 3.5 L Chloride 96 L Carbon Dioxide 34 H Anion Gap 7 BUN 20 Creatinine 0.87 Est GFR ( Amer) > 60 Est GFR (Non-Af Amer) > 60 Glucose 228 H Calcium 9.2 Magnesium 2.3 Total Bilirubin 0.3 AST 10 L ALT 39 Alkaline Phosphatase 143 H Total Protein 5.2 L Albumin 2.7 L 01/29/19 01/29/19 22:04 22:04 Troponin I < 0.012 NT-Pro-B Natriuret Pep 250 Impressions: Chest X-Ray 02/05/19 06:00 IMPRESSION: Right upper lobe and left lower lobe pneumonia. Trace left pleural fluid Guidance Fluoroscopy 02/06/19 00:00 IMPRESSION: SUCCESSFUL PLACEMENT OF A 5 FR DUAL LUMEN 42 CM PICC IN THE LEFT BASILIC VEIN. Interventional Vascular Procedure 02/06/19 00:00 IMPRESSION: SUCCESSFUL PLACEMENT OF A 5 FR DUAL LUMEN 42 CM PICC IN THE LEFT BASILIC VEIN. PICC Line Insertion 02/06/19 00:00 IMPRESSION: SUCCESSFUL PLACEMENT OF A 5 FR DUAL LUMEN 42 CM PICC IN THE LEFT BASILIC VEIN. Chest CT 02/09/19 00:00 IMPRESSION: Persistent consolidation in the left lower lobe. Increasing reticulonodular infiltrate along the right major fissure. Interval development of small right pleural effusion. Assessment and Plan - Diagnosis (1) Acute respiratory failure with hypoxia Is this a current diagnosis for this admission?: Yes Plan: Somewhat improved; and maintaining oxygen saturations for periods of time on nasal cannula. Continues to use intermittent BiPAP. Multifactorial secondary to LLL PNA and COPD exacerbation. Legionella, Pertussis, Pleural effusion C&S, Sputum, and AFB smears all pending. Patient is admitted to [facility] on continuous telemetry. Supplemental oxygen and BiPAP as needed to maintain saturations >89% Scheduled and as needed nebulizer treatments IV Solumedrol Mucinex twice daily Empirically placed on IV Levaquin have added vancomycin secondary to MRSA bacteremia. Levaquin discontinued in favor of Azithromycin for concern of possible pertussis. Incentive spirometer and flutter valve to bedside. (2) Pneumonia Qualifiers: Pneumonia type: due to methicillin-resistant Staphylococcus aureus (MRSA) Laterality: left Lung location: lower lobe of lung Qualified Code(s): J15.21 2 - Pneumonia due to Methicillin resistant Staphylococcus aureus Is this a current diagnosis for this admission?: Yes Plan: Left lower lobe pneumonia and reticulonodular infiltrate to the right lung; slightly worsened on follow up CT. Blood cultures positive for MRSA and one bottle and Staph hominins in second set. Sputum culture pending. AFB pending; will obtain x3. PPD placed today. Legionella and Pertussis pending; both send out labs. Continue IV Azithromicin and IV vancomycin. Infectious disease has been consulted; recommended TB rule out and diagnostic thoracentesis (s/p procedure; labs pending) Remaining management as above. (3) COPD with exacerbation Is this a current diagnosis for this admission?: Yes Plan: Without previous formal diagnosis, active long-term smoker. PFT confirms severe COPD. Remaining management as above. (4) Abnormal chest CT Is this a current diagnosis for this admission?: Yes Plan: CT Chest demonstrated LLL PNA and Right reticulonodular infilitrate; recommends follow-up to exclude underlying malignancy. Diagnostic thoracentesis today; pleural fluid gram stain, AFB, C&S pending. Have also requested cytology review as there were large RBC. Protein, amylase, and LDH are pending. Patient sees Dr. Ewing; recommend follow up appointment after discharge for further evaluation. (5) Morbid obesity Is this a current diagnosis for this admission?: Yes Plan: Lifestyle modification and dietary discretion is advised. (6) Tobacco abuse Is this a current diagnosis for this admission?: Yes Plan: Smoking cessation encouraged; nicotine replacement therapies are provided. (7) MRSA bacteremia Is this a current diagnosis for this admission?: Yes Plan: Blood cultures (01/30/2019) positive for MRSA in one bottle and staph hominins (contaminant) in second set. Repeat blood cultures (02/02/19) are negative TTE was not suggestive of endocarditis. However, must continue to consider as patient's PNA is worsening; will r/o TB and obtain legionella and pertussis results, if no source/improvement at that time, will contact [facility] to arrange for DEEPTI. Patient denies history of endocarditis or artificial heart valves. However, she does report multiple orthopedic hardware devices (left hip, knee, ankle and right femoral shoshana). She reports that in 2012 she required replacement of femoral shoshana and 8 weeks of IV antibiotics for unknown bacterial infection. Infectious disease was consulted; patient will require minimum 4 weeks of IV antibiotics. - Time Time Spent with patient: 35 or more minutes Medications reviewed and adjusted accordingly: Yes Anticipated discharge: Home with Homehealth Within: Other - >3 days
[2019-02-11] MEDS: GABAPENTIN 300 MG CAPSULE PO SCH (21:47)
[2019-02-11] MEDS: MONTELUKAST SODIUM 10 MG TABLET PO SCH (21:47)
[2019-02-11] MEDS: PHARMACY COMMUNICATION ORDER MC SCH (21:48)
[2019-02-11] MEDS: AZITHROMYCIN 500 MG in DEXTROSE 5%-WATER 250 ML IV SCH (23:37)
[2019-02-11] MEDS: ALPRAZOLAM 0.25 MG TABLET PO PRN (23:41)
[2019-02-12] MEDS: IPRATROPIUM/ALBUTEROL 0.5-2.5 MG/3 ML AMPUL NEB SCH ×6 (04:10→23:50)
[2019-02-12] MEDS: PANTOPRAZOLE SODIUM 20 MG TABLET.DR PO SCH (06:00)
[2019-02-12] MEDS: METHYLPREDNISOLONE INJ 125 MG/2 ML SDV IV SCH ×2 (06:00→14:46)
[2019-02-12 06:48] LABS: HEMATOCRIT 30.1 % (36.0-47.0); HEMOGLOBIN 10.2 g/dL (12.0-15.5); MEAN CORPUSCULAR HEMOGLOBIN 32.6 pg (27.0-33.4); MEAN CORPUSCULAR VOLUME 96 fl (80-97); PLATELET COUNT 299 10^3/uL (150-450); RED BLOOD COUNT 3.14 10^6/uL (3.72-5.28); RED CELL DISTRIBUTION WIDTH 13.2 % (11.5-14.0); WHITE BLOOD COUNT 12.6 10^3/uL (4.0-10.5)
[2019-02-12 06:54] LABS: ANION GAP 7 (5-19); BLOOD UREA NITROGEN 23 mg/dL (7-20); CALCIUM 9.1 mg/dL (8.4-10.2); CARBON DIOXIDE 33 mmol/L (22-30); CHLORIDE 97 mmol/L (98-107); GLUCOSE 253 mg/dL (75-110); POTASSIUM 3.6 mmol/L (3.6-5.0); SODIUM 136.7 mmol/L (137-145)
[2019-02-12] MEDS: INSULIN REG, HUMAN 100 UNIT/ML 3 ML VIAL (PYX) SUBCUT SCH ×5 (08:01→21:52)
[2019-02-12] MEDS: BUDESONIDE NEB 0.5 MG/2 ML AMPUL NEB SCH ×2 (09:01→19:49)
[2019-02-12] MEDS: CALCIUM CARBONATE 250 MG/VITAMIN D3 125 UNIT TABLET PO SCH (10:17)
[2019-02-12] MEDS: ENOXAPARIN SODIUM INJ 40 MG/0.4 ML DISP.SYRIN SUBCUT SCH (10:17)
[2019-02-12] MEDS: FLUTICASONE NASAL SPRAY 50 MCG/SPRY 120 SPRAY/16 GM NASL SCH ×2 (10:17→21:53)
[2019-02-12] MEDS: DULOXETINE HCL 30 MG CAPSULE.DR PO SCH (10:18)
[2019-02-12] MEDS: AMLODIPINE BESYLATE 10 MG TABLET PO SCH (10:18)
[2019-02-12] MEDS: LIDOCAINE 5% (700 MG) TRANSDERMAL ADH..PATCH TP SCH (10:18)
[2019-02-12] MEDS: NORMAL SALINE 10 ML SDV (SCHEDULED) IV SCH ×2 (10:19→21:50)
[2019-02-12] MEDS: NICOTINE 21 MG/24 HR PATCH.TD24 TD SCH (10:19)
[2019-02-12] MEDS: CETIRIZINE 10 MG TABLET PO SCH (10:19)
[2019-02-12] MEDS: POLYETHYLENE GLYCOL 3350 POWDER 17 GM/1 PACKET PO SCH (10:20)
[2019-02-12] MEDS: VANCOMYCIN HCL 750 MG in DEXTROSE 5%-WATER 250 ML IV SCH ×2 (10:20→21:50)
[2019-02-12 11:36] LABS: VANCOMYCIN,TROUGH 14.1 ug/mL (5.0-20.0)
--- NOTE | 2019-02-12 18:11 | PDOC PROGRESS REPORT ---
Subjective Progress Note for:: 02/12/19 Subjective:: ONIEL AVILA is a 63 year old female with a past medical history of hypertension, dyslipidemia, morbid obesity, GERD, tobacco and recent sinus surgery November 25, 2018 admitted 01/30/19 for COPD exacerbation. Patient was seen on morning rounds. She was found to be sitting up to the edge of the bed comfortably on supplemental oxygen at 1 L/min. Significant impro vement from yesterday when she was on 4 L/min and even more so from the day before when she required high flow nasal cannula. She reports that she is feeling significantly better; increased energy, decreased dyspnea, cough, malaise. She is requesting to ambulate the halls today. She further denies fever, chills, chest pain, palpitations, orthopnea, abdominal pain, nausea and vomiting. She continues to require supplemental oxygen and BiPAP; she is not home O2 dependant. She has no new questions or concerns; hopeful to be ready to discharge within the next few days with home health nursing to continue her home infusion antibiotics. No questions per nursing. Reason For Visit: COPD EXACERBATION ACUTE SINUSITIS Physical Exam Vital Signs: Temp Pulse Resp BP Pulse Ox 98.4 F 114 H 16 130/62 H 100 02/12/19 11:19 02/12/19 14:00 02/12/19 12:27 02/12/19 11:19 02/12/19 12:27 Pulse Oximeter Ambulatory Start: 02/06/19 12:41 Freq: ONCE Status: Complete Protocol: Document 02/12/19 10:27 [facility] (Rec: 02/12/19 10:27 [facility] [id number]) Exercise Oximetry Treatment Ambulating SpO2 Charge Now No Oxygen Delivery Method Nasal Cannula Oxygen Flow Rate (L/min) 2 Additional RT Notes Other Patient is on Airborne precautions. Intake & Output 02/11/19 02/12/19 02/13/19 06:59 06:59 06:59 Intake Total 1986 1895 840 Output Total 1800 1350 900 Balance 187 545 -60 Weight 97.4 kg 97.7 kg General appearance: PRESENT: no acute distress, cooperative, morbidly obese, well-developed, well-nourished Head exam: PRESENT: atraumatic, normocephalic Eye exam: PRESENT: conjunctiva pink, EOMI, PERRLA. ABSENT: scleral icterus Ear exam: PRESENT: normal external ear exam Mouth exam: PRESENT: moist, tongue midline Neck exam: ABSENT: carotid bruit, JVD, lymphadenopathy, thyromegaly Respiratory exam: PRESENT: clear to auscultation ashvin, symmetrical, unlabored, other - Supplemental oxygen via nasal cannula. ABSENT: rales, rhonchi, wheezes Cardiovascular exam: PRESENT: RRR, +S1, +S2, tachycardia - With activity. ABSENT: diastolic murmur, rubs, systolic murmur Pulses: PRESENT: normal dorsalis pedis pul Vascular exam: PRESENT: normal capillary refill GI/Abdominal exam: PRESENT: normal bowel sounds, soft. ABSENT: distended, guarding, mass, organolmegaly, rebound, tenderness Rectal exam: PRESENT: deferred Extremities exam: PRESENT: full ROM, pedal edema - +2 bilaterally. ABSENT: calf tenderness, clubbing Neurological exam: PRESENT: alert, awake, oriented to person, oriented to place, oriented to time, oriented to situation, CN II-XII grossly intact. ABSENT: motor sensory deficit Psychiatric exam: PRESENT: appropriate affect, normal mood. ABSENT: homicidal ideation, suicidal ideation Skin exam: PRESENT: dry, intact, warm. ABSENT: cyanosis, rash Results Laboratory Results: 02/12/19 06:00 02/12/19 06:00 02/11/19 02/12/19 02/12/19 14:51 06:00 06:00 WBC 12.6 H RBC 3.14 L Hgb 10.2 L Hct 30.1 L MCV 96 MCH 32.6 MCHC 34.0 RDW 13.2 Plt Count 299 Sodium 136.7 L Potassium 3.6 Chloride 97 L Carbon Dioxide 33 H Anion Gap 7 BUN 23 H Creatinine 0.77 Est GFR ( Amer) > 60 Est GFR (Non-Af Amer) > 60 Glucose 253 H Calcium 9.1 Fluid Type PLEURAL Fluid Source LUNG Fluid Color ORANGE Fluid Appearance SLIGHTLY HAZY Fluid Viscosity LIQUID Fluid WBC 28 Fluid RBC [id number] 01/29/19 01/29/19 22:04 22:04 Troponin I < 0.012 NT-Pro-B Natriuret Pep 250 Impressions: Guidance Fluoroscopy 02/06/19 00:00 IMPRESSION: SUCCESSFUL PLACEMENT OF A 5 FR DUAL LUMEN 42 CM PICC IN THE LEFT BASILIC VEIN. Interventional Vascular Procedure 02/06/19 00:00 IMPRESSION: SUCCESSFUL PLACEMENT OF A 5 FR DUAL LUMEN 42 CM PICC IN THE LEFT BASILIC VEIN. PICC Line Insertion 02/06/19 00:00 IMPRESSION: SUCCESSFUL PLACEMENT OF A 5 FR DUAL LUMEN 42 CM PICC IN THE LEFT BASILIC VEIN. Chest CT 02/09/19 00:00 IMPRESSION: Persistent consolidation in the left lower lobe. Increasing reticulonodular infiltrate along the right major fissure. Interval development of small right pleural effusion. Chest X-Ray 02/11/19 00:00 IMPRESSION: Decrease in the left pleural effusion. No pneumothorax status post procedure. Thoracentesis Ultrasound 02/11/19 08:19 IMPRESSION: SUCCESSFUL THORACENTESIS USING ULTRASOUND GUIDANCE. Assessment and Plan - Diagnosis (1) Acute respiratory failure with hypoxia Is this a current diagnosis for this admission?: Yes Plan: Significantly improved today; lung sounds clear and maintaining oxygen saturations on nasal cannula. Multifactorial secondary to LLL PNA and COPD exacerbation. Legionella, Pertussis, Sputum, and AFB smears all pending. Pleural effusion C&S has no growth at 1 day Patient is admitted to [facility] on continuous telemetry. Supplemental oxygen and BiPAP as needed to maintain saturations >89% Scheduled and as needed nebulizer treatments IV Solumedrol; will decrease dose today. Mucinex twice daily Empirically placed on IV Levaquin have added vancomycin secondary to MRSA bacteremia. Levaquin discontinued in favor of Azithromycin for concern of possible pertussis. Pertussis and Legionella are send out labs; still pending. Incentive spirometer and flutter valve to bedside. (2) Pneumonia Qualifiers: Pneumonia type: due to methicillin-resistant Staphylococcus aureus (MRSA) Laterality: left Lung location: lower lobe of lung Qualified Code(s): J15.212 - Pneumonia due to Methicillin resistant Staphylococcus aureus Is this a current diagnosis for this admission?: Yes Plan: Left lower lobe pneumonia and reticulonodular infiltrate to the right lung; slightly worsened on follow up CT. Blood cultures positive for MRSA and one bottle and Staph hominins in second set. Sputum culture pending. AFB pending; will obtain x3. PPD placed today. Legionella and Pertussis pending; both send out labs. Continue IV Azithromicin and IV vancomycin. Infectious disease has been consulted; recommended TB rule out and diagnostic thoracentesis (s/p procedure; labs pending) Remaining management as above. (3) COPD with exacerbation Is this a current diagnosis for this admission?: Yes Plan: Without previous formal diagnosis, active long-term smoker. PFT confirms severe COPD. Remaining management as above. (4) Abnormal chest CT Is this a current diagnosis for this admission?: Yes Plan: CT Chest demonstrated LLL PNA and Right reticulonodular infilitrate; recommends follow-up to exclude underlying malignancy. Diagnostic thoracentesis today; pleural fluid gram stain, AFB, C&S pending. Have also requested cytology review as there were large RBC. Protein, amylase, and LDH are pending. Patient sees Dr. Ewing; recommend follow up appointment after discharge for further evaluation. (5) Morbid obesity Is this a current diagnosis for this admission?: Yes Plan: Lifestyle modification and dietary discretion is advised. (6) Tobacco abuse Is this a current diagnosis for this admission?: Yes Plan: Smoking cessation encouraged; nicotine replacement therapies are provided. (7) MRSA bacteremia Is this a current diagnosis for this admission?: Yes Plan: Blood cultures (01/30/2019) positive for MRSA in one bottle and staph hominins (contaminant) in second set. Repeat blood cultures (02/02/19) are negative TTE was not suggestive of endocarditis. However, must continue to consider as patient's PNA is worsening; will r/o TB and obtain legionella and pertussis results, if no source/improvement at that time, will contact [facility] to arrange for DEEPTI. Patient denies history of endocarditis or artificial heart valves. However, she does report multiple orthopedic hardware devices (left hip, knee, ankle and right femoral shoshana). She reports that in 2012 she required replacement of femoral shoshana and 8 weeks of IV antibiotics for unknown bacterial infection. Infectious disease was consulted; patient will require minimum 4 weeks of IV an tibiotics. (8) HTN (hypertension) Qualifiers: Hypertension type: essential hypertension Qualified Code(s): I10 - Essential (primary) hypertension Is this a current diagnosis for this admission?: Yes Plan: Continue home dose amlodipine. IV hydralazine every 6 hours as needed for blood pressure control. Cardiac diet. - Time Time Spent with patient: 25-34 minutes Medications reviewed and adjusted accordingly: Yes Anticipated discharge: Home with Homehealth Within: within 72 hours
[2019-02-12] MEDS: MONTELUKAST SODIUM 10 MG TABLET PO SCH (21:50)
[2019-02-12] MEDS: GABAPENTIN 300 MG CAPSULE PO SCH (21:50)
[2019-02-12] MEDS: NORMAL SALINE 10 ML SDV (AFTER EACH USE) IV PRN (21:50)
[2019-02-12] MEDS: METHYLPREDNISOLONE INJ 40 MG/1 ML SDV IV SCH (21:51)
[2019-02-12] MEDS ORDERED: METHYLPREDNISOLONE INJ 125 MG/2 ML SDV IV SCH (22:00)
[2019-02-12] MEDS: PHARMACY COMMUNICATION ORDER MC SCH (22:01)
[2019-02-12] MEDS: AZITHROMYCIN 500 MG in DEXTROSE 5%-WATER 250 ML IV SCH (23:34)
[2019-02-12] MEDS: ALPRAZOLAM 0.25 MG TABLET PO PRN (23:36)
[2019-02-13] MEDS: IPRATROPIUM/ALBUTEROL 0.5-2.5 MG/3 ML AMPUL NEB SCH ×6 (04:05→23:55)
[2019-02-13] MEDS: METHYLPREDNISOLONE INJ 40 MG/1 ML SDV IV SCH ×3 (05:27→21:37)
[2019-02-13] MEDS: PANTOPRAZOLE SODIUM 20 MG TABLET.DR PO SCH (05:27)
[2019-02-13] MEDS: NORMAL SALINE 10 ML SDV (AFTER EACH USE) IV PRN (05:35)
[2019-02-13] MEDS: INSULIN REG, HUMAN 100 UNIT/ML 3 ML VIAL (PYX) SUBCUT SCH ×4 (08:07→21:22)
[2019-02-13] MEDS: BUDESONIDE NEB 0.5 MG/2 ML AMPUL NEB SCH ×2 (09:07→20:09)
[2019-02-13] MEDS: POLYETHYLENE GLYCOL 3350 POWDER 17 GM/1 PACKET PO SCH (09:38)
[2019-02-13] MEDS: NICOTINE 21 MG/24 HR PATCH.TD24 TD SCH (09:38)
[2019-02-13] MEDS: LIDOCAINE 5% (700 MG) TRANSDERMAL ADH..PATCH TP SCH (09:38)
[2019-02-13] MEDS: FLUTICASONE NASAL SPRAY 50 MCG/SPRY 120 SPRAY/16 GM NASL SCH ×2 (09:42→21:48)
[2019-02-13] MEDS: AMLODIPINE BESYLATE 10 MG TABLET PO SCH (09:42)
[2019-02-13] MEDS: CALCIUM CARBONATE 250 MG/VITAMIN D3 125 UNIT TABLET PO SCH (09:42)
[2019-02-13] MEDS: ENOXAPARIN SODIUM INJ 40 MG/0.4 ML DISP.SYRIN SUBCUT SCH (09:43)
[2019-02-13] MEDS: CETIRIZINE 10 MG TABLET PO SCH (09:43)
[2019-02-13] MEDS: DULOXETINE HCL 30 MG CAPSULE.DR PO SCH (09:43)
[2019-02-13] MEDS: VANCOMYCIN HCL 750 MG in DEXTROSE 5%-WATER 250 ML IV SCH ×2 (09:54→22:48)
[2019-02-13] MEDS: NORMAL SALINE 10 ML SDV (SCHEDULED) IV SCH ×2 (09:58→21:36)
[2019-02-13] MEDS ORDERED: ALPRAZOLAM 0.25 MG TABLET PO PRN (16:50)
--- NOTE | 2019-02-13 19:15 | PDOC PROGRESS REPORT ---
Subjective Progress Note for:: 02/13/19 Subjective:: ONIEL AVILA is a 63 year old female with a past medical history of hypertension, dyslipidemia, morbid obesity, GERD, tobacco and recent sinus surgery November 25, 2018 admitted 01/30/19 for COPD exacerbation. Patient was seen on afternoon rounds. She was found to be sitting up to the edge of the bed comfortably on room air. Significant improvement from yesterda y. She reports that she ambulated in the halls on room air through the afternoon/evening without difficulty. She further denies fever, chills, chest pain, palpitations, orthopnea, abdominal pain, nausea and vomiting. She has no new questions or concerns; hopeful to be ready to discharge within t he next few days with home health nursing to continue her home infusion antibiotics. No questions per nursing. PPD read negative and AFB sputum x3 returned negative today; no longer on airborne precautions. Reason For Visit: COPD EXACERBATION ACUTE SINUSITIS Physical Exam Vital Signs: Temp Pulse Resp BP Pulse Ox 98.4 F 97 20 145/69 H 95 02/13/19 16:13 02/13/19 16:13 02/13/19 16:13 02/13/19 16:13 02/13/19 16:13 Pulse Oximeter Ambulatory Start: 02/06/19 12:41 Freq: ONCE Status: Complete Protocol: Document 02/12/19 10:27 [facility] (Rec: 02/12/19 10:27 [facility] [email or web address]) Exercise Oximetry Treatment Ambulating SpO2 Charge Now No Oxygen Delivery Method Nasal Cannula Oxygen Flow Rate (L/min) 2 Additional RT Notes Other Patient is on Airborne precautions. Intake & Output 02/12/19 02/13/19 02/14/19 06:59 06:59 06:59 Intake Total 2145 1770 1049 Output Total 1350 2000 1200 Balance 795 230 151 Weight 97.7 kg 96 kg General appearance: PRESENT: no acute distress, cooperative, morbidly obese, well-developed, well-nourished Head exam: PRESENT: atraumatic, normocephalic Eye exam: PRESENT: conjunctiva pink, EOMI, PERRLA. ABSENT: scleral icterus Ear exam: PRESENT: normal external ear exam Mouth exam: PRESENT: moist, tongue midline Neck exam: ABSENT: carotid bruit, JVD, lymphadenopathy, thyromegaly Respiratory exam: PRESENT: clear to auscultation ashvin, symmetrical, unlabored. ABSENT: rales, rhonchi, wheezes Cardiovascular exam: PRESENT: RRR, +S1, +S2. ABSENT: diastolic murmur, rubs, systolic murmur Pulses: PRESENT: normal dorsalis pedis pul Vascular exam: PRESENT: normal capillary refill GI/Abdominal exam: PRESENT: normal bowel sounds, soft. ABSENT: distended, guarding, mass, organolmegaly, rebound, tenderness Rectal exam: PRESENT: deferred Extremities exam: PRESENT: full ROM, pedal edema - +1 bilaterally. ABSENT: calf tenderness, clubbing Neurological exam: PRESENT: alert, awake, oriented to person, oriented to place, oriented to time, oriented to situation, CN II-XII grossly intact. ABSENT: motor sensory deficit Psychiatric exam: PRESENT: appropriate affect, normal mood. ABSENT: homicidal ideation, suicidal ideation Skin exam: PRESENT: dry, intact, warm. ABSENT: cyanosis, rash Results Laboratory Results: 02/12/19 06:00 02/12/19 06:00 02/11/19 02/11/19 02/11/19 14:51 14:51 14:51 Fluid Glucose 330 Fluid Total Protein 2.5 Fluid LDH 284 02/11/19 16:41 Clean Catch Midstream Legionella Urinary Antigen - Final 01/29/19 01/29/19 22:04 22:04 Troponin I < 0.012 NT-Pro-B Natriuret Pep 250 Impressions: Guidance Fluoroscopy 02/06/19 00:00 IMPRESSION: SUCCESSFUL PLACEMENT OF A 5 FR DUAL LUMEN 42 CM PICC IN THE LEFT BASILIC VEIN. Interventional Vascular Procedure 02/06/19 00:00 IMPRESSION: SUCCESSFUL PLACEMENT OF A 5 FR DUAL LUMEN 42 CM PICC IN THE LEFT BASILIC VEIN. PICC Line Insertion 02/06/19 00:00 IMPRESSION: SUCCESSFUL PLACEMENT OF A 5 FR DUAL LUMEN 42 CM PICC IN THE LEFT BASILIC VEIN. Chest CT 02/09/19 00:00 IMPRESSION: Persistent consolidation in the left lower lobe. Increasing reticulonodular infiltrate along the right major fissure. Interval development of small right pleural effusion. Chest X-Ray 02/11/19 00:00 IMPRESSION: Decrease in the left pleural effusion. No pneumothorax status post procedure. Thoracentesis Ultrasound 02/11/19 08:19 IMPRESSION: SUCCESSFUL THORACENTESIS USING ULTRASOUND GUIDANCE. Assessment and Plan - Diagnosis (1) Acute respiratory failure with hypoxia Is this a current diagnosis for this admission?: Yes Plan: Resolved; lung sounds clear and maintaining oxygen saturations while ambulatory on room air. Multifactorial secondary to LLL PNA and COPD exacerbation. Legionella negative. Pertussis pending. AFB smears negative. Pleural effusion C&S has no growth at 1 day Patient is admitted to [facility] on continuous telemetry. Supplemental oxygen and BiPAP as needed to maintain saturations >89% Scheduled and as needed nebulizer treatments IV Solumedrol; continue weaning. Mucinex twice daily Empirically placed on IV Levaquin have added vancomycin secondary to MRSA bacteremia. Levaquin discontinued in favor of Azithromycin for concern of possible pertussis. Pertussis and Legionella are send out labs; still pending. Incentive spirometer and flutter valve to bedside. (2) Pneumonia Qualifiers: Pneumonia type: due to methicillin-resistant Staphylococcus aureus (MRSA) Laterality: left Lung location: lower lobe of lung Qualified Code(s): J15.212 - Pneumonia due to Methicillin resistant Staphylococcus aureus Is this a current diagnosis for this admission?: Yes Plan: Left lower lobe pneumonia and reticulonodular infiltrate to the right lung; s lightly worsened on follow up CT. Blood cultures positive for MRSA and one bottle and Staph hominins in second set. Sputum culture pending. AFB x3 negative. PPD negative. Legionella negative Pertussis pending; send out lab. Continue IV Azithromicin and IV vancomycin. Infectious disease has been consulted; TB has been ruled out Remaining management as above. (3) COPD with exacerbation Is this a current diagnosis for this admission?: Yes Plan: Without previous formal diagnosis, active long-term smoker. PFT confirms severe COPD. Remaining management as above. (4) Abnormal chest CT Is this a current diagnosis for this admission?: Yes Plan: CT Chest demonstrated LLL PNA and Right reticulonodular infilitrate; recommends follow-up to exclude underlying malignancy. Diagnostic thoracentesis today; pleural fluid gram stain, AFB, C&S pending. Have also requested cytology review as there were large RBC. Protein, amylase, and LDH are pending. Patient sees Dr. Ewing; recommend follow up appointment after discharge for further evaluation. (5) Morbid obesity Is this a current diagnosis for this admission?: Yes Plan: Lifestyle modification and dietary discretion is advised. (6) Tobacco abuse Is this a current diagnosis for this admission?: Yes Plan: Smoking cessation encouraged; nicotine replacement therapies are provided. (7) MRSA bacteremia Is this a current diagnosis for this admission?: Yes Plan: Blood cultures (01/30/2019) positive for MRSA in one bottle and staph hominins (contaminant) in second set. Repeat blood cultures (02/02/19) are negative TTE was not suggestive of endocarditis. Patient denies history of endocarditis or artificial heart valves. However, she does report multiple orthopedic hardware devices (left hip, knee, ankle and right femoral shoshana). She reports that in 2012 she required replacement of femoral shoshana and 8 weeks of IV antibiotics for unknown bacterial infection. Infectious disease was consulted; patient will require minimum 4 weeks of IV antibiotics. End date 03/02/19 (8) HTN (hypertension) Qualifiers: Hypertension type: essential hypertension Qualified Code(s): I10 - Essential (primary) hypertension Is this a current diagnosis for this admission?: Yes Plan: Continue home dose amlodipine. IV hydralazine every 6 hours as needed for blood pressure control. Cardiac diet. - Time Time Spent with patient: 25-34 minutes Medications reviewed and adjusted accordingly: Yes Anticipated discharge: Home Within: within 24 hours
[2019-02-13] MEDS: MONTELUKAST SODIUM 10 MG TABLET PO SCH (21:35)
[2019-02-13] MEDS: GABAPENTIN 300 MG CAPSULE PO SCH (21:35)
[2019-02-13] MEDS: PHARMACY COMMUNICATION ORDER MC SCH (21:36)
[2019-02-13] MEDS: AZITHROMYCIN 500 MG in DEXTROSE 5%-WATER 250 ML IV SCH (21:40)
[2019-02-13] MEDS ORDERED: AZITHROMYCIN INJ 500 MG VIAL IV SCH (22:00)
[2019-02-14] MEDS: IPRATROPIUM/ALBUTEROL 0.5-2.5 MG/3 ML AMPUL NEB SCH ×3 (04:13→11:55)
[2019-02-14] MEDS: PANTOPRAZOLE SODIUM 20 MG TABLET.DR PO SCH (05:57)
[2019-02-14] MEDS: METHYLPREDNISOLONE INJ 40 MG/1 ML SDV IV SCH (05:57)
[2019-02-14] MEDS: BUDESONIDE NEB 0.5 MG/2 ML AMPUL NEB SCH (07:29)
[2019-02-14] MEDS: INSULIN REG, HUMAN 100 UNIT/ML 3 ML VIAL (PYX) SUBCUT SCH ×2 (07:53→11:41)
[2019-02-14 08:35] VITALS: BP 153/76
[2019-02-14] MEDS: DULOXETINE HCL 30 MG CAPSULE.DR PO SCH (09:39)
[2019-02-14] MEDS: CALCIUM CARBONATE 250 MG/VITAMIN D3 125 UNIT TABLET PO SCH (09:39)
[2019-02-14] MEDS: AMLODIPINE BESYLATE 10 MG TABLET PO SCH (09:40)
[2019-02-14] MEDS: CETIRIZINE 10 MG TABLET PO SCH (09:40)
[2019-02-14] MEDS: FLUTICASONE NASAL SPRAY 50 MCG/SPRY 120 SPRAY/16 GM NASL SCH (09:42)
[2019-02-14] MEDS: ENOXAPARIN SODIUM INJ 40 MG/0.4 ML DISP.SYRIN SUBCUT SCH (09:42)
[2019-02-14] MEDS: NICOTINE 21 MG/24 HR PATCH.TD24 TD SCH (09:43)
[2019-02-14] MEDS: LIDOCAINE 5% (700 MG) TRANSDERMAL ADH..PATCH TP SCH (09:43)
[2019-02-14] MEDS: POLYETHYLENE GLYCOL 3350 POWDER 17 GM/1 PACKET PO SCH (09:43)
[2019-02-14] MEDS: NORMAL SALINE 10 ML SDV (SCHEDULED) IV SCH (09:45)
[2019-02-14] MEDS: VANCOMYCIN HCL 750 MG in DEXTROSE 5%-WATER 250 ML IV SCH (09:47)
[2019-02-14] MEDS ORDERED: PREDNISONE 20 MG TABLET PO SCH (10:00)
[2019-02-14] MEDS ORDERED: AZITHROMYCIN 500 MG in DEXTROSE 5%-WATER 250 ML IV SCH (22:00)
--- NOTE | 2019-02-17 11:33 | PDOC DISCHARGE SUMMARY ---
General - Admit/Disc Date/PCP Admission Date/Primary Care Provider: 01/30/19 01:22 LUIS ARMANDO JOSEPH MD Discharge Date: 02/14/19 - Discharge Diagnosis (1) Acute respiratory failure with hypoxia Is this a current diagnosis for this admission?: Yes Summary: Resolved; lung sounds clear and maintaining oxygen saturations while ambulatory on room air. Multifactorial secondary to LLL PNA and COPD exacerbation. Legionella negative. Pertussis pending. AFB smears negative. Pleural effusion C&S has no growth at 1 day Patient was admitted to [facility] on continuous telemetry. She was provided supplemental oxygen and BiPAP as needed to maintain saturations >89%, scheduled and as needed nebulizer treatments, and palced on IV Solumedrol. Pulmonary toilet encouraged with Mucinex twice daily, showers, incentive spirometer, flutter valve, and ambulation. Empirically placed on IV Levaquin have added vancomycin secondary to MRSA bacteremia. Levaquin discontinued in favor of Azithromycin for concern of possible pertussis. Pertussis is still pending at time of discharge. Infectious Disease was consutled and recommended TB rule out; which was confirmed negative with PPD and AFB smears x3. At time of discharge, patient is in stable condition with clear lung sounds and maintaining oxygen saturations while ambulatory on room air. She is encouraged to stop smoking. She is advised to follow up with her PCP within 1 week and to return to the emergency department as needed for concerning symptoms. (2) Pneumonia Is this a current diagnosis for this admission?: Yes Summary: Resolved. Left lower lobe pneumonia and reticulonodular infiltrate to the right lung; slightly worsened on follow up CT. Blood cultures positive for MRSA and one bottle and Staph hominins in second set. AFB x3 negative. PPD negative. Legionella negative Pertussis pending; send out lab. Infectious disease has been consulted; TB has been ruled out Remaining management as above. (3) COPD with exacerbation Is this a current diagnosis for this admission?: Yes Summary: Without previous formal diagnosis, active long-term smoker. PFT confirms severe COPD. She is discharged home on Spiriva, Symbicort, Flonase, Singulair, Nicoderm patches, and a prednisone taper. Remaining management as above. (4) Abnormal chest CT Is this a current diagnosis for this admission?: Yes Summary: CT Chest demonstrated LLL PNA and Right reticulonodular infilitrate; recommends follow-up to exclude underlying malignancy. Diagnostic thoracentesis today; pleural fluid gram stain, AFB, C&S pending. Have also requested cytology review as there were large RBC. Protein, amylase, and LDH are pending. Patient sees Dr. Ewing; recommend follow up appointment after discharge for further evaluation. (5) Morbid obesity Is this a current diagnosis for this admission?: Yes Summary: Lifestyle modification and dietary discretion is advised. (6) Tobacco abuse Is this a current diagnosis for this admission?: Yes Summary: Smoking cessation encouraged, Rx for Nicoderm patches provided. (7) MRSA bacteremia Is this a current diagnosis for this admission?: Yes Summary: Blood cultures (01/30/2019) positive for MRSA in one bottle and staph hominins (contaminant) in second set. Repeat blood cultures (02/02/19) are negative TTE was not suggestive of endocarditis. Patient denies history of endocarditis or artificial heart valves. However, she does report multiple orthopedic hardware devices (left hip, knee, ankle and right femoral shoshana). She reports that in 2012 she required replacement of femoral shoshana and 8 weeks of IV antibiotics for unknown bacterial infection. Infectious disease was consulted; patient will require minimum 4 weeks of IV antibiotics. End date 03/02/19 Patient is discharged home with home health nursing and infusion services to complete antibiotic course. (8) HTN (hypertension) Is this a current diagnosis for this admission?: Yes Summary: Continue home dose amlodipine. Cardiac diet. - Additional Information Resuscitation Status: Full Code Discharge Diet: Cardiac Discharge Activity: Activity As Tolerated, Balance Activity w/Rest, Slowly Increase Activity Prescriptions: Alprazolam [Xanax 0.25 mg Tablet] 0.25 mg PO BIDP PRN #10 tablet PRN Reason: Anxiety Budesonide/Formoterol Fumarate [Symbicort Hfa 160-4.5 Mcg Inhaler 6 gm] 1 puff IH Q12 #1 inhaler Fluticasone Propionate [Flonase Nasal [place] 50 Mcg/[place] 16 gm] 2 spray NASL Q12 #1 spray.pump Ipratropium/Albuterol Sulfate [Duoneb 3 ml Ampul] 3 ml NEB RTQ8HP PRN #90 vial.neb PRN Reason: Montelukast Sodium [Singulair 10 mg Tablet] 10 mg PO QHS #30 tablet Nebulizer [Nebulizer Machine] 1 each MC ASDIR PRN #1 kit PRN Reason: Nicotine [Nicoderm 21 mg/24 Hr Transderm Patch] 1 each TD DAILY #30 patch.td24 Prednisone [Deltasone 20 mg Tablet] 60 mg PO ASDIR PRN #20 tablet PRN Reason: Tiotropium [place] [Spiriva Handihaler 5 Cap/Kit (18 Mcg/Cap)] 1 cap IH DAILY #5 capsule Home Medications: Amlodipine Besylate [Norvasc 10 mg Tablet] 10 mg PO DAILY 01/30/19 Calcium Carbonate/Vitamin D3 [Calcium 500 + Vit D Caplet] 1 tab PO DAILY 01/30/19 Cetirizine HCl [Zyrtec 10 mg Tablet] 10 mg PO DAILY 01/30/19 Duloxetine HCl [Cymbalta] 60 mg PO DAILY 01/30/19 Gabapentin [Neurontin 300 mg Capsule] 300 mg PO QHS 01/30/19 Omeprazole 20 mg PO DAILY 01/30/19 Acetaminophen [Tylenol 325 mg Tablet] 650 mg PO Q4HP PRN tablet 02/14/19 Alprazolam [Xanax 0.25 mg Tablet] 0.25 mg PO BIDP PRN #10 tablet 02/14/19 Budesonide/Formoterol Fumarate [Symbicort Hfa 160-4.5 Mcg Inhaler 6 gm] 1 puff IH Q12 #1 inhaler 02/14/19 Fluticasone Propionate [Flonase Nasal [place] 50 Mcg/[place] 16 gm] 2 spray NASL Q12 #1 spray.pump 02/14/19 Ipratropium/Albuterol Sulfate [Duoneb 3 ml Ampul] 3 ml NEB RTQ8HP PRN #90 vial.neb 02/14/19 Montelukast Sodium [Singulair 10 mg Tablet] 10 mg PO QHS #30 tablet 02/14/19 Nebulizer [Nebulizer Machine] 1 each MC ASDIR PRN #1 kit 02/14/19 Nicotine [Nicoderm 21 mg/24 Hr Transderm Patch] 1 each TD DAILY #30 patch.td24 02/14/19 Polyethylene Glycol 3350 [Miralax Powder 17 gm/Packet] 17 gm PO DAILY powd.pack 02/14/19 Prednisone [Deltasone 20 mg Tablet] 60 mg PO ASDIR PRN #20 tablet 02/14/19 Tiotropium [place] [Spiriva Handihaler 5 Cap/Kit (18 Mcg/Cap)] 1 cap IH DAILY #5 capsule 02/14/19 Vancomycin HCl [Vancocin Inj 1000 mg Vial] 750 mg IV Q12 #0 vial 02/14/19 History of Present Illness History of Present Illness: ONIEL AVILA is a 63 year old female Physical Exam Vital Signs: Temp Pulse Resp BP Pulse Ox 97.8 F 96 20 153/76 H 93 02/14/19 08:12 02/14/19 08:12 02/14/19 08:12 02/14/19 08:12 02/14/19 08:12 Pulse Oximeter Ambulatory Start: 02/06/19 12:41 Freq: ONCE Status: Complete Protocol: Document 02/12/19 10:27 [facility] (Rec: 02/12/19 10:27 [facility] [id number]) Exercise Oximetry Treatment Ambulating SpO2 Charge Now No Oxygen Delivery Method Nasal Cannula Oxygen Flow Rate (L/min) 2 Additional RT Notes Other Patient is on Airborne precautions. Intake & Output 02/13/19 02/14/19 02/15/19 06:59 06:59 06:59 Intake Total 1770 1949 Output Total 1999 3275 Balance -230 -1326 Weight 96 kg 96.4 kg General appearance: PRESENT: no acute distress, cooperative, morbidly obese, well-developed, well-nourished Head exam: PRESENT: atraumatic, normocephalic Eye exam: PRESENT: conjunctiva pink, EOMI, PERRLA. ABSENT: scleral icterus Ear exam: PRESENT: normal external ear exam Mouth exam: PRESENT: moist, tongue midline Neck exam: ABSENT: carotid bruit, JVD, lymphadenopathy, thyromegaly Respiratory exam: PRESENT: clear to auscultation ashvin, symmetrical, unlabored. ABSENT: rales, rhonchi, wheezes Cardiovascular exam: PRESENT: RRR, +S1, +S2. ABSENT: diastolic murmur, rubs, systolic murmur Pulses: PRESENT: normal dorsalis pedis pul Vascular exam: PRESENT: normal capillary refill GI/Abdominal exam: PRESENT: normal bowel sounds, soft. ABSENT: distended, guarding, mass, organolmegaly, rebound, tenderness Rectal exam: PRESENT: deferred Extremities exam: PRESENT: full ROM. ABSENT: calf tenderness, clubbing, pedal edema Neurological exam: PRESENT: alert, awake, oriented to person, oriented to place, oriented to time, oriented to situation, CN II-XII grossly intact. ABSENT: motor sensory deficit Psychiatric exam: PRESENT: appropriate affect, normal mood. ABSENT: homicidal ideation, suicidal ideation Skin exam: PRESENT: dry, intact, warm. ABSENT: cyanosis, rash Results Laboratory Results: 02/12/19 06:00 02/12/19 06:00 02/11/19 02/11/19 02/11/19 14:51 14:51 14:51 Fluid Glucose 330 Fluid Total Protein 2.5 Fluid LDH 284 02/11/19 14:51 Pleural Fluid - Not Specified Gram Stain - Final 02/11/19 16:41 Clean Catch Midstream Legionella Urinary Antigen - Final 01/29/19 01/29/19 22:04 22:04 Troponin I < 0.012 NT-Pro-B Natriuret Pep 250 Impressions: Guidance Fluoroscopy 02/06/19 00:00 IMPRESSION: SUCCESSFUL PLACEMENT OF A 5 FR DUAL LUMEN 42 CM PICC IN THE LEFT BASILIC VEIN. Interventional Vascular Procedure 02/06/19 00:00 IMPRESSION: SUCCESSFUL PLACEMENT OF A 5 FR DUAL LUMEN 42 CM PICC IN THE LEFT BASILIC VEIN. PICC Line Insertion 02/06/19 00:00 IMPRESSION: SUCCESSFUL PLACEMENT OF A 5 FR DUAL LUMEN 42 CM PICC IN THE LEFT BASILIC VEIN. Chest CT 02/09/19 00:00 IMPRESSION: Persistent consolidation in the left lower lobe. Increasing reticu lonodular infiltrate along the right major fissure. Interval development of small right pleural effusion. Chest X-Ray 02/11/19 00:00 IMPRESSION: Decrease in the left pleural effusion. No pneumothorax status post procedure. Thoracentesis Ultrasound 02/11/19 08:19 IMPRESSION: SUCCESSFUL THORACENTESIS USING ULTRASOUND GUIDANCE. Qualifiers - * PATIENT BEING DISCHARGED WITH ANY OF THE FOLLOWING DIAGNOSIS: No Acute Heart Failure - Is this a Heart Failure Patient?: No LVEF < 40%?: No- if no continue to question #3 Plan Discharge Plan: Discharge to [facility]. continue IV Vancomycin q 12 hours through 03/02/19. Follow up with PCP within 1 week. Obtain overnight sleep study. STOP smoking. Return to the emergency department as needed for concerning symptoms. Time Spent: Greater than 30 Minutes
== END 2019-02-14 13:30 | disposition home health service (06) | DRG 190 ==
LOC: ER 21:47 → EH 01-30 01:22 → 5 01-30 05:10 → 3N 02-10 16:10
PROVIDERS: ADMIT Internal Medicine; ATTEND Internal Medicine
PROC: 5A09557 Assistance with Respiratory Ventilation, Greater than 96 Consecutive Hours, Continuous Positive Airway Pressure (ICD-10-PCS; principal; 2019-01-29)
PROC: 02HV33Z Insertion of Infusion Device into Superior Vena Cava, Percutaneous Approach (ICD-10-PCS; 2019-02-06)
PROC: B548ZZA Ultrasonography of Superior Vena Cava, Guidance (ICD-10-PCS; 2019-02-06)
PROC: B5181ZA Fluoroscopy of Superior Vena Cava using Low Osmolar Contrast, Guidance (ICD-10-PCS; 2019-02-06)
PROC: 0W993ZX Drainage of Right Pleural Cavity, Percutaneous Approach, Diagnostic (ICD-10-PCS; 2019-02-11)
DX: J44.1 Chronic obstructive pulmonary disease with (acute) exacerbation (principal); J96.01 Acute respiratory failure with hypoxia; J15.212 Pneumonia due to Methicillin resistant Staphylococcus aureus; R78.81 Bacteremia; Z68.41 Body mass index [BMI] 40.0-44.9, adult; J44.0 Chronic obstructive pulmonary disease with (acute) lower respiratory infection; B95.62 Methicillin resistant Staphylococcus aureus infection as the cause of diseases classified elsewhere; E66.01 Morbid (severe) obesity due to excess calories; I10 Essential (primary) hypertension; E78.5 Hyperlipidemia, unspecified; K21.9 Gastro-esophageal reflux disease without esophagitis; J01.90 Acute sinusitis, unspecified; F17.210 Nicotine dependence, cigarettes, uncomplicated; Z96.642 Presence of left artificial hip joint; Z60.2 Problems related to living alone; E78.00 Pure hypercholesterolemia, unspecified; Z79.899 Other long term (current) drug therapy; Z90.49 Acquired absence of other specified parts of digestive tract; Z90.710 Acquired absence of both cervix and uterus; Z83.6 Family history of other diseases of the respiratory system; Z79.891 Long term (current) use of opiate analgesic; Z88.3 Allergy status to other anti-infective agents; Z88.2 Allergy status to sulfonamides; Z71.6 Tobacco abuse counseling; Z91.19 Patient's noncompliance with other medical treatment and regimen
CPT/HCPCS: 32555; 36415; 36569; 36600; 71045; 71250; 71260; 76937; 77001; 80048; 80053; 80202; 82565; 82803; 82945; 82962; 83605; 83615; 83735; 83880; 84157; 84484; 85025; 85027; 85610; 85730; 87015; 87040; 87070; 87075; 87077; 87101; 87116; 87186; 87205; 87206; 87252; 89050; 93005; 93010; 93306; 94060; 94640; 94660; 94667; 94668; 94799; 96361; 96365; 96375; 99285; J0456; J1170; J1642; J1644; J1650; J1815; J1885; J1956; J2060; J2270; J2920; J2930; J3370; J3475; J3490; J7030; J7060; J7512; J7620

== ENCOUNTER → 2019-03-10 | Outpatient (CLI) | payer BC ==
--- NOTE | 2019-03-10 10:11 | RADIOLOGY REPORT (SQ) ---
EXAM DESCRIPTION: CT CHEST WITH; CT ABDOMEN IV CONTRAST ONLY COMPLETED DATE/TIME: 03/10/2019 9:40 am REASON FOR STUDY: ATELECTASIS (J98.11), DIAPHRAGMATIC HERNIA (K44.9), DYSPNEA (R06.09) J98.11 ATELE CTASIS K44.9 DIAPHRAGMATIC HERNIA WITHOUT OBSTRUCTION OR GANGRENE R06.09 OTHER FORMS OF DYSPNEA COMPARISON: Ultrasound-guided thoracentesis 02/11/2019 CT chest 02/09/2019, 01/30/2019, 03/08/2011 CONTRAST TYPE AND DOSE: contrast/concentration: Isovue 350.00 mg/ml; Total Contrast Delivered: 100.0 ml; Total Saline Delivered: 72.0 ml RENAL FUNCTION: Creatinine 0.9 TECHNIQUE: CT scan of the chest performed using helical scanning technique with dynamic intravenous contrast injection. Images reviewed with lung, soft tissue and bone windows. Reconstructed coronal a nd sagittal MPR images reviewed. All images stored on PACS. CT scan of the abdomen performed with intravenous and without oral contrastusing helical scanning vic[place] with dynamic intravenous contrast injection. Images reviewed with lung, soft tissue and bone windows. Reconstructed coronal and sagittal MPR images reviewed. Delayed images for evaluation of t he urinary system also acquired and evaluated. All images stored on PACS. All CT scanners at this facility use dose modulation, iterative reconstruction, and/or weight based d osing when appropriate to reduce radiation dose to as low as reasonably achievable (ALARA). [facility]: Dose Right [facility]: CareDose [facility]: Dose Right [facility]: Teradose 4D [facility]: [employer] RADIATION DOSE: CT Rad equipment meets quality standard of care and radiation dose reduction techniq ues were employed. CTDIvol: 15.6 - 25.8 mGy. DLP: 2217 mGy-cm. . LIMITATIONS: None. FINDINGS: CHEST: LUNGS AND PLEURA: Consolidation seen in the right upper lobe superior segment on 02/09/2019 has partial ly cleared. Bandlike scarring is now present. In the superior segment right lower lobe, and lateral basal segment right lower lobe, multiple tiny a lveolar nodules are present. This could indicate bronchiolitis or hypersensitivity pneumonitis. Sys temic sarcoidosis tuft of the is possible. On the left side, no acute infiltrates are present. No worrisome pulmonary nodules. There is pleura l thickening and bandlike scarring along the periphery of the left lung base hip. No residual left p leural effusion. No right or left pneumothorax. No right or left pleural effusion. HILAR AND MEDIASTINAL STRUCTURES: No identified masses or abnormal nodes. HEART AND VASCULAR STRUCTURES: No aneurysm or dissection. No central pulmonary emboli. No pericardi al effusion. HARDWARE: None. THYROID AND OTHER SOFT TISSUES: No masses. No adenopathy. BONES: No significant finding. OTHER: No other significant finding. ABDOMEN AND PELVIS: LIVER: Normal size. No masses. No dilated ducts. SPLEEN: Normal size. No focal lesions. PANCREAS: No masses. No significant calcifications. No adjacent inflammation or peripancreatic fluid collections. Pancreatic duct not dilated. GALLBLADDER: Surgically absent ADRENAL GLANDS: No significant masses or asymmetry. RIGHT KIDNEY AND URETER: No solid masses. No significant calcification. No hydronephrosis or hydroure ter. LEFT KIDNEY AND URETER: No solid masses. No significant calcification. No hydronephrosis or hydrouret er. AORTA AND VESSELS: No aneurysm. No dissection. Renal arteries, SMA, celiac without stenosis. RETROPERITONEUM: No retroperitoneal adenopathy, hemorrhage or masses. BOWEL AND PERITONEAL CAVITY: Visualized gastrointestinal tract is unremarkable aside from gastric sle lisa procedure APPENDIX: Not in the field of view ABDOMINAL WALL: No masses. No hernias. BONES: No significant or acute findings. OTHER: No other significant finding. IMPRESSION: Airspace disease in the posterior aspect right upper lobe seen on CT chest 02/09/2019 has partially cleared. There are multiple tiny alveolar nodules in the right lower lobe, question bronchiolitis, hypersensit ivity pneumonitis. No right or left pleural effusion. Pleural thickening in the left lateral and posterior costophrenic sulcus. Post cholecystectomy and gastric sleeve procedure. TECHNICAL DOCUMENTATION: JOB ID: [id number] Quality ID # [id number]: Final reports with documentation of one or more dose reduction techniques (e.g., Au tomated exposure control, adjustment of the mA and/or kV according to patient size, use of iterative reconstruction technique) 2010 [employer]- All Rights Reserved Reading location - IP/workstation name: [email or web address]
== END ==
LOC: RAD 08:33
PROVIDERS: ATTEND Internal Medicine Pulmonary Disease
DX: J98.11 Atelectasis (principal); K44.9 Diaphragmatic hernia without obstruction or gangrene; R06.09 Other forms of dyspnea
CPT/HCPCS: 71260; 74160

== ENCOUNTER → 2019-05-18 | Outpatient (CLI) | payer BC ==
[2019-05-18 13:37] LABS: POTASSIUM 3.9 mmol/L (3.6-5.0)
[2019-05-18 14:13] LABS: FERRITIN 18.6 ng/mL (11.1-264.0)
== END ==
LOC: OD 11:52
PROVIDERS: ATTEND Internal Medicine Pulmonary Disease
DX: G25.81 Restless legs syndrome (principal)
CPT/HCPCS: 36415; 82306; 82607; 82728; 83735; 84132

== ENCOUNTER → 2020-06-16 | Outpatient (CLI) | payer BC, MEDICARE ==
--- NOTE | 2020-06-16 16:39 | RADIOLOGY REPORT (SQ) ---
EXAM DESCRIPTION: VENOUS UNILATERAL LOWER IMAGES COMPLETED DATE/TIME: 06/16/2020 4:31 pm REASON FOR STUDY: LLE I82.402 I82.402 ACUTE EMBOLISM AND THOMBOS UNSP DEEP VEINS OF L LOW COMPARISON: None. TECHNIQUE: Dynamic and static deras scale and color images acquired of the left leg venous system. Se lected spectral images acquired with additional compression and augmentation maneuvers. The contralat eral common femoral vein and saphenofemoral junction were also imaged. Images stored on PACS. LIMITATIONS: None. FINDINGS: COMMON FEMORAL: Normal phasicity, compression and augmentation. No visualized echogenic ma terial on deras scale. No defects on color images. FEMORAL: Normal compression and augmentation. No visualized echogenic material on deras scale. No defe cts on color images. POPLITEAL: Normal compression, augmentation. No visualized echogenic material on deras scale. No defec ts on color images. CALF VESSELS: Normal compression, augmentation. No visualized echogenic material on deras scale. No de fects on color images. GSV and SSV: Normal compression, augmentation. No visualized echogenic material on deras scale. No def ects on color images. ANY DEEP VENOUS INSUFFICIENCY: Not evaluated. ANY EVIDENCE OF POPLITEAL CYST: No. OTHER: No other significant finding. CONTRALATERAL COMMON FEMORAL VEIN AND SAPHENOFEMORAL JUNCTION: Normal phasicity, compression and augmentation. No visualized echogenic material on deras scale. No de fects on color images. IMPRESSION: NO EVIDENCE DVT OR SVT IN THE LEFT LEG. TECHNICAL DOCUMENTATION: JOB ID: [id number] 2010 [employer]- All Rights Reserved Reading location - IP/workstation name: [email or web address]
== END ==
LOC: SP 15:18
PROVIDERS: ATTEND Podiatrist Foot & Ankle Surgery
DX: I82.402 Acute embolism and thrombosis of unspecified deep veins of left lower extremity (principal)
CPT/HCPCS: 93971

== ENCOUNTER → 2020-07-20 | Outpatient (CLI) | payer BC, MEDICARE ==
--- NOTE | 2020-07-20 08:25 | RADIOLOGY REPORT (SQ) ---
EXAM DESCRIPTION: CHEST PA/LATERAL IMAGES COMPLETED DATE/TIME: 07/20/2020 8:04 am REASON FOR STUDY: COPD W (ACUTE) EXACERBATION,CENTRILOBULAR EMPHYSEMA COMPARISON: 02/11/2019 EXAM PARAMETERS: NUMBER OF VIEWS: two views TECHNIQUE: Digital Frontal and Lateral radiographic views of the chest acquired. RADIATION DOSE: NA LIMITATIONS: none FINDINGS: LUNGS AND PLEURA: No consolidation. Focal asymmetric opacity in the left costophrenic ang le most likely represents scar. No effusions. No pneumothorax. MEDIASTINUM AND HILAR STRUCTURES: No masses or contour abnormalities. HEART AND VASCULAR STRUCTURES: Heart normal size. No evidence for failure. BONES: No acute findings. HARDWARE: None in the chest. OTHER: No other significant finding. IMPRESSION: NO SIGNIFICANT RADIOGRAPHIC FINDING IN THE CHEST. TECHNICAL DOCUMENTATION: JOB ID: [id number] 2010 [employer]- All Rights Reserved Reading location - IP/workstation name: [email or web address]
[2020-07-20 08:33] LABS: ARTERIAL BLOOD BASE EXCESS -3.2 mmol/L; ARTERIAL BLOOD H2CO3 0.97 mmol/L (1.05-1.35); ARTERIAL BLOOD HCO3 20.4 mmol/L (20-24); ARTERIAL BLOOD O2 SATURATION 96.3 % (94-98); ARTERIAL BLOOD PCO2 32.2 mmHg (35-45); ARTERIAL BLOOD PH 7.42 (7.35-7.45); ARTERIAL BLOOD PO2 81.7 mmHg (80-100); ARTERIAL BLOOD TOTAL CO2 21.4 mmol/L (21-25)
[2020-07-20 08:37] LABS: ARTERIAL BLOOD FIO2 ROOM AIR
--- OUTSIDE RECORDS SUMMARY | 2020-07-21 17:57 | XMS REPORT ---
:1955 Author Organization [facility] Address [facility] [place] [address] [place] [address] Care Team Providers Name Role Phone OPAL RUIZ Primary Care Physician Unavailable Alfonso AYALA Attending Clinician Unavailable King ADAM Attending Clinician Unavailable Juanjose ALMONTE Attending Clinician Unavailable Alfonso AYALA Admitting Clinician Unavailable King ADAM Admitting Clinician Unavailable Allergies, Adverse Reactions, Alerts Allergy Allergy Status Severity Reaction(s) Onset Inactive Treating C omments Name Type Date Date Clinician Sulfa Allergy to Active Severe Anaphylaxis 2019-0 (Sulfonamid substance 5-27 e 00:00: Antibiotics 00 ) ([id number] ) lorazepam Propensity Active Mild "I EAT 2020-0 ([id number] to adverse EVERYTHING 5-27 ) reactions IN SIGHT" 00:00: 00 Lorazepam Allergy to Inactive 2020-0 substance 5-27 00:00: 00 Sulfa Allergy to Inactive Severe Anaphylaxis (Sulfonamid Substance e Antibiotics ) ([id number] ) Bacitracin Allergy to Active Moderate Hives substance to severe Sulfa Allergy to Active Severe Anaphylaxis (Sulfonamid substance e Antibiotics ) Medications Ordered Filled Start Stop Current Ordering Indication Dosage Frequency Signature Comments Components Medication Medication Date Date Medication? Clinician (SIG) Name Name Acetaminoph 2020-0 Yes 1 Every 6 en/Hydrocod 9-20 Hours as one Bitart 21:01: needed for ([place]*) 00 Pain 5/325MG TAB Cyclobenzap 2019-0 Yes 7.5 Three rine Hcl 9-20 Times Per (Fexmid) 21:00: Day as 7.5 Mg 00 needed for TABLET Muscle Spasm Oxycodone 2019-0 Yes Every 6 Hcl 5-28 Hours as (Roxicodone 07:56: needed for *) 5 Mg 00 Pain TABLET Aspirin 2019-0 Yes 81 Twice Per (Ecotrin*) 5-28 Day 81 Mg TABEC 07:54: 00 amlodipine No amlodipine 10 mg 10 mg tablet Take tablet 1 tablet Take 1 every day tablet by oral every day route for by oral 90 days. route for 90 days. duloxetine No duloxetine 60 mg 60 mg capsule,del capsule,de ayed layed release release Take 1 Take 1 capsule capsule every day every day by oral by oral route for route for 90 days. 90 days. meloxicam No meloxicam 15 mg 15 mg tablet Take tablet 1 tablet Take 1 every day tablet by oral every day route for by oral 90 days. route for 90 days. Amlodipine No 10 Once Per Besylate Day (Norvasc*) 10 Mg Tablet fluticasone No fluticason propionate e 50 propionate mcg/actuati 50 on nasal mcg/actuat spray,suspe ion nasal nsion [place] spray,susp by nasal ension route for [place] by 30 days. nasal route for 30 days. Aripiprazol No 15 Once Per e Day (Abilify*) 15 Mg Tablet hydrocodone No 1 Q1D hydrocodon 5 e 5 mg-acetamin mg-acetami ophen 325 nophen 325 mg tablet mg tablet Take 1 Take 1 tablet tablet every day every day by oral by oral route as route as needed for needed for 2 days. 2 days. Calcium No 1 Once Per Carbonate/V Day itamin D3 (Caltrate 600 + D Tablet) 1 Each Tablet lidocaine 5 No lidocaine % topical 5 % patch Apply topical by topical patch route for Apply by 14 days. topical route for 14 days. Cholecalcif No 2000 Once Per david Day (Vitamin D Tab*) 1,000 Unit Tab Spiriva No Spiriva with with HandiHaler HandiHaler 18 mcg and 18 mcg and inhalation inhalation capsules As capsules directed As directed Duloxetine No 60 Once Per Hcl Day (Cymbalta*) 60 Mg Capsule. budesonide- No budesonide formoterol -formotero HFA 160 l HFA 160 mcg-4.5 mcg-4.5 mcg/actuati mcg/actuat on aerosol ion inhaler As aerosol directed inhaler As directed Gabapentin No 300 Three (Neurontin* Times Per ) 300 Mg Day Capsule levalbutero No 1mL Q1D levalbuter l 1.25 mg/3 ol 1.25 mL solution mg/3 mL for solution nebulizatio for n Inhale 1 nebulizati mL every on Inhale day by 1 mL every inhalation day by route as inhalation needed for route as 90 days. needed for 90 days. Meloxicam No 15 Once Per (Mobic*) 15 Day Mg Tablet levalbutero No 1puff(s Q1D levalbuter l HFA 45 ) ol HFA 45 mcg/actuati mcg/actuat on aerosol ion inhaler aerosol Inhale 1 inhaler puff every Inhale 1 day by puff every inhalation day by route as inhalation needed for route as 90 days. needed for 90 days. montelukast No 1 Q1D montelukas 10 mg t 10 mg tablet Take tablet 1 tablet Take 1 every day tablet by oral every day route for by oral 90 days. route for 90 days. Omeprazole No 40 Daily (Prilosec*) Before 40 Mg Breakfast Capsule.dr reichuvastakosua No 1 Q1D rosuvastat n 5 mg in 5 mg tablet Take tablet 1 tablet Take 1 every day tablet by oral every day route for by oral 90 days. route for 90 days. Amlodipine Yes 10 Once Per Besylate Day (Norvasc*) 10 Mg TABLET cephalexin No 1capsul QID cephalexin 500 mg e(s) 500 mg capsule capsule Take 1 Take 1 capsule 4 capsule 4 times a day times a by oral day by route for oral route 10 days. for 10 days. Budesonide/ Yes 2 Twice Per Formoterol Day Inh* (Symbicort Inhaler*) 160/4.5 Mcg/Act INH oxycodone 5 No 1 TID oxycodone mg tablet 5 mg Take 1 tablet tablet 3 Take 1 times a day tablet 3 by oral times a route as day by needed for oral route 6 days. as needed for 6 days. Calcium Yes 1 Once Per Carbonate/V Day itamin D3 (Caltrate 600 + D Tablet) 1 Each TABLET amoxicillin No amoxicilli 875 n 875 mg-potassiu mg-potassi m um clavulanate clavulanat 125 mg e 125 mg tablet Take tablet by oral Take by route for oral route 14 days. for 14 days. Cetirizine Yes 10 Once Per Hcl (Zyrtec Day Tab*) 10 Mg TAB azelastine No azelastine 137 mcg 137 mcg (0.1 %) (0.1 %) nasal spray nasal aerosol spray aerosol Cholecalcif Yes 5000 Every david Other Day (Vitamin D Tab*) 1,000 Unit TAB albuterol No 2puff(s albuterol sulfate HFA ) sulfate 90 HFA 90 mcg/actuati mcg/actuat on aerosol ion inhaler aerosol Inhale 2 inhaler puffs as Inhale 2 needed by puffs as inhalation needed by route for inhalation 33 days. route for 33 days. Duloxetine Yes 30 At Bedtime Hcl (Cymbalta*) 30 Mg CAP levalbutero No .5mL TID levalbuter l ol concentrate concentrat 1.25 mg/0.5 e 1.25 mL solution mg/0.5 mL for solution nebulizatio for n Inhale nebulizati 0.5 mL 3 on Inhale times a day 0.5 mL 3 by times a inhalation day by route as inhalation needed. route as needed. Duloxetine Yes 60 Once Per Hcl Day (Cymbalta*) 60 Mg CAPSULE. mupirocin 2 No mupirocin % topical 2 % ointment topical ointment Fluticasone Yes 1 Twice Per Propionate Day (Flonase 0.05% Nasal [place]*) 120 [place]/16 Gm INHA PreviDent No PreviDent 5000 Dry 5000 Dry Mouth 1.1 % Mouth 1.1 gel % gel Robaxin 1 No Robaxin 1 po TID PRN po TID PRN Gabapentin Yes 300 Twice Per (Neurontin* Day ) 300 Mg CAPSULE Robaxin-750 No 1 TID Robaxin-75 750 mg 0 750 mg tablet Take tablet 1 tablet 3 Take 1 times a day tablet 3 by oral times a route. day by oral route. Meloxicam Yes 15 Once Per (Mobic*) 15 Day Mg TABLET Montelukast Yes 10 Once Per Sodium Day At (Singulair* Bedtime ) 10 Mg TABLET Omeprazole Yes 20 Daily (Prilosec*) Before 40 Mg Breakfast CAPSULE. Tiotropium Yes 2 Once Per [place] Day VIA (Spiriva*) INHALER 18 Mcg/Inhcap EA Aripiprazol 2019- No 15 Once Per e 05-18 Day (Abilify*) 00:00 15 Mg :00 TABLET Cetirizine 2015- No 10 Daily As Hcl (Zyrtec 08-13 Needed Tab*) 10 Mg 00:00 Tab, 10 Mg :00 Oral Esomeprazol 2015- No 40 Once Per e Magnesium 08-13 Day (Nexium*) 00:00 40 Mg :00 Capcr, 40 Mg Oral Ibandronate 2015- No 150 Monthly Sodium 08-13 (Boniva 00:00 Tab*) 150 :00 Mg Tab, 150 Mg Oral Protein 2015- No 90 Once Per Supplement 08-13 Day (Protein 00:00 Powder) 454 :00 Gm Powder, 90 % By Mouth Cetirizine No 10 Daily As Hcl (Zyrtec 08-13 Needed Tab*) 10 Mg 00:00 TAB :00 Esomeprazol 2015- No 40 Once Per e Magnesium 08-13 Day (Nexium*) 00:00 40 Mg CAPCR :00 Ibandronate 2015- No 150 Monthly Sodium 08-13 (Boniva 00:00 Tab*) 150 :00 Mg TAB Protein No 90 Once Per Supplement 08-13 Day (Protein 00:00 Powder) 454 :00 Gm POWDER Calcium &D 2009- No 1 Once Per 600/200 , 1 03-01 Day Tablet Oral 00:00 :00 Docosahexan 2009- No 1000 Once Per oic 03-01 Day Acid/Epa 00:00 (Fish Oil :00 Concentrate Softgel) 1 Each Capsule, 1000 Mg By Mouth One-A Day 2009- No 1 Once Per Vit , 1 03-01 Day Tablet Oral 00:00 :00 Calcium &D 2009- No 1 Once Per 600/200 03-01 Day 00:00 :00 Docosahexan 2010- No 1000 Once Per oic 03-01 Day Acid/Epa 00:00 (Fish Oil :00 Concentrate Softgel) 1 Each CAPSULE One-A Day 2009- No 1 Once Per Vit 03-01 Day 00:00 :00 Bupropion 2009- No 150 Once Per Hcl 08-03 Day (Wellbutrin 00:00 Sr*) 150 Mg :00 Tabcr, 150 Mg Oral Bupropion 2009- No 150 Once Per Hcl 08-03 Day (Wellbutrin 00:00 Sr) 150 Mg :00 TABCR Problems Condition Condition Condition Status Onset Resolution Last Treatin g Comments Name Details Category Date Date Treatment Clinician Date Trochanteri Trochanteri Problem Active c bursitis c Bursitis 9- of left hip of Left Hip 00:00: 00 Pain in Pain in Problem Active 2020-0 right knee Right Knee 6-19 00:00: 00 Stiffness Stiffness Problem Active of right of Right 6-19 knee Knee 00:00: 00 History of History of Problem Active right total Right Total 5-27 knee Knee 00:00: replacement Replacement 00 Total Total Problem Inactiv replacement Replacement e 6-16 of left hip of Left Hip 00:00: joint Joint 00 History of History of Problem Active left total Left Total 6-16 knee Knee 00:00: replacement Replacement 00 History of History of Problem Active total Total 1-01 replacement Replacement 00:00: of left hip of Left Hip 00 joint Joint Hyperlipide Hyperlipide Problem Active tomasa tomasa Obesity Obesity Problem Active Morbid Morbid Problem Active obesity Obesity Chronic Chronic Problem Active pain Pain Hypertensiv Hypertensiv Problem Active e disorder e Disorder Gastroesoph Gastroesoph Problem Active ageal ageal reflux Reflux disease Disease Osteoarthri Osteoarthri Problem Inactiv tis of knee tis of Knee e Knee pain Knee Pain Problem Active Replacement Replacement Problem Inactiv of total of Total e knee joint Knee Joint Pain of Pain of Problem Active left hip Left Hip joint Joint Osteopenia Osteopenia Problem Active Abnormal Abnormal Problem Active weight gain Weight Gain Closed Closed Problem Active fracture of Fracture of femur Femur Mixed Mixed Problem Active anxiety and Anxiety and depressive Depressive disorder Disorder Chronic Chronic Problem Active pain due to Pain Due to injury Injury Status post Status post Problem Active total right total right knee knee replacement replacement Allergic Allergic Problem Active rhinitis Rhinitis Pain of Pain of Problem Active left hip left hip Cystocele Cystocele Problem Active Dislocation Dislocation Problem Active of internal of internal left hip left hip prosthesis, prosthesis, initial initial encounter encounter Midline Midline Problem Active cystocele Cystocele Female Female Problem Active proctocele Proctocele without without uterine Uterine prolapse Prolapse Arthritis Arthritis Problem Active Procedures Procedure Date / Time Performed Performing Clinician Devi e RADIOLOGIC EXAM, KNEE; COMPLETE, 4 2020-03-14 00:00:00 OR MORE VIEWS Total Knee Arthroplasty (Surg) 2020-02-03 00:00:00 RADIOLOGIC EXAM, KNEE; COMPLETE, 4 2019-08-03 00:00:00 OR MORE VIEWS RADIOLOGIC EXAM HIP, UNILATERAL 2-3 2018-10-16 00:00:00 VIEWS Gastrectomy, sleeve, laparoscopic 2016-08-15 00:00:00 Sheldon ADAM Laparoscopy, Surgical, Gastric 2016-08-15 00:00:00 Restrictive Procedure; Longitudinal Gastrectomy Laparoscopy, Surgical, Gastric 2016-08-15 00:00:00 Restrictive Procedure; Longitudinal Gastrectomy (Surg) Orthopedic Surgery 2011-11-12 00:00:00 Orthopedic Surgery 2011-10-26 00:00:00 Orthopedic Surgery 2010-03-03 00:00:00 Knee Replacement 2009-02-22 00:00:00 Cholecystectomy 2007-09-09 00:00:00 Hip Replacement 2002-09-09 00:00:00 Colonoscopy 2002-09-09 00:00:00 Other 1980-09-09 00:00:00 Other 1979-09-09 00:00:00 Other 1978-09-09 00:00:00 Hysterectomy 1978-09-09 00:00:00 Orthopedic Surgery 1968-09-09 00:00:00 Tonsillectomy/Adenoidectomy 1967-09-09 00:00:00 Results Test Description Test Time Test Comments Text Results Atomic Results Result Comments RADIOLOGY 2020-05-29 [facility] 19:09:[address] [place] [address] [id number] Patient: ONIEL AVILA : [birth year] 54 Sex: F Address: [address] [place] [address] [address] [place] [address] Unit #: [id number] REQ SEQ #: [id number] Location: ED Room #: Ordering: BLAKNA ALMONTE MD Diagnosis: 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 Left hip replacement approximately 70 years ago.. . Technique: 2 view Findings: Tota l left hip prosthesis. Partial inclusion of internal fixation plates with screws andwires lateral to the femur. Prominent gap between the visualized femoral internal fixation plate and cortex on the lateral view.. Alignment is near anatomic. No acute fracture or osseous destructive lesi on. Impression: Possible loosening of lateral femoral internal fixation plate. Direct compariso n with prior exams would be of benefit, if available. Final report electronically s igned by: Kyree Bernard DO Signed by: KYREE BERNARD III, MD 05/29/20 0288 cc: BLANKA ALMONTE MD, III, GEORGE L MD Automated blood hematocrit (volume fraction) 2020-02-04 03:55:00 Test Item Value Reference Range Comments Hematocrit (test code = 4544-3) 38.1 33.3-41.4 Sodium [Moles/volume] in [id number] 03:55:00 Test Item Value Reference Range Comments Sodium Level (test code = 2947-0) 132 137-144 Potassium [Moles/volume] in Serum or [id number] 03:55:00 Test Item Value Reference Range Comments Potassium Level (test code = 2823-3) 3.9 3.1-5.1 Chloride [id number] 03:55:00 Test Item Value Reference Range Comments Chloride Level (test code = 032787582) 99 101-110 Carbon dioxide [id number] 03:55:00 Test Item Value Reference Range Comments Carbon Dioxide Level (test code = 16645127) 24 23-3 1 Glucose [Moles/volume] in Serum or [id number] 03:55:00 Test Item Value Reference Range Comments Glucose Level (test code = 93919-3) 107 70-105 [id number] 03:55:00 Test Item Value Reference Range Comments Blood Urea Nitrogen (test code = 027068834) 15.0 9.8- 20.1 Creatinine [id number] 03:55:00 Test Item Value Reference Range Comments Creatinine (test code = 131588232) 1.09 0.57-1.11 Estimation of creatinine [id number] 03:55:00 Test Item Value Reference Range Comments Estimated Creatinine Clearance 55.32 P T Ht: 152.4cm, PT Wt: 102KG Calc (test code = 188042164) Anion gap [id number] 03:55:00 Test Item Value Reference Range Comments Anion Gap (test code = 38359037) 13 7-16 [id number] 03:55:00 Test Item Value Reference Range Comments Calcium Level (test code = 09260393) 8.1 8.4-10.2 Blood hemoglobin measurement (mass/volume)2020-02-04 03:55:00 Test Item Value Reference Range Comments Hemoglobin (test code = 718-7) 12.7 11.4-14.4 [id number] 12:52:[address] [address] Patient: ONIEL AVILA : 1955 Sex: F Address: [address] [place] [address] [address] [place] [address] [facility] #: [id number] Unit #: [id number] REQ SEQ #: [id number] Location: [facility] Room #: [facility]-2 Ordering: PARKER AYALA MD Diagnosis: [id number]/UNILATERAL PRIMARY OSTEOARTHRITIS, RI KNEE RIGHT 1 OR 2 VIEWS Clinical Information: [id number]/UNILATERAL PRIMARY OSTEOARTHRITIS, R Comparison: None IMPRESSION: A single lateral view of the right knee shows a 3 component knee arthroplasty without evidence of loosening or malalignment. There is subcutaneous emphysema. Final report electronically signed by: Ines Buck MD Signed by: YOLANDA BUCK MD 02/03/20 0186 cc: PARKER AYALA MD, JOHN MD Comprehensive metabolic 2000 panel - Serum or [id number] 14:40:00 Test Item Value Reference Range Comments sodium (test code = sodium) 140 mmol/L 137-144 potassium (test code = potassium) 4.0 mmol/L 3.1-5.1 chloride (test code = chloride) 107 mmol/L 101-110 carbon dioxide (test code = carbon dioxide) 25 mmol/L 23-3 1 glucose (test code = glucose) 108 mg/dL 70-105 BUN (test code = BUN) 23.0 mg/dL 9.8-20.1 creatinine (test code = creatinine) 1.06 mg/dL 0.57-1.11 anion gap (test code = anion gap) 12 mmol/L 7-16 calcium (test code = calcium) 8.8 mg/dL 8.4-10.2 total bilirubin (test code = total bilirubin) 0.4 mg/dL 0. 1-1.2 total protein (test code = total protein) 6.8 g/dL 6.0-8. 3 albumin (test code = albumin) 4.2 g/dL 3.2-5.2 globulin (test code = globulin) 2.6 g/dL 2.6-4.6 A/G ratio (test code = A/G ratio) 1.6 g/dL 1.1-2.5 AST (test code = AST) 14 U/L 5-34 alkaline phosphatase (test code = alkaline 65 U/L 40-15 0 phosphatase) ALT (test code = ALT) 17 U/L 0-55 CBC W Differential panel, method unspecified - [id number] 14:29:00 Test Item Value Reference Range Comments white blood count (test code = white blood count) 9.6 K/mm3 3.6-11.1 red blood count (test code = red blood count) 4.21 M/uL 3. 69-4.88 hemoglobin (test code = hemoglobin) 13.1 g/dL 11.4-14.4 hematocrit (test code = hematocrit) 39.3 % 33.3-41.4 mean corpuscular volume (test code = mean 93.3 fL 79.3-9 4.8 corpuscular volume) mean corpuscular hemoglobin (test code = mean 31.2 pg 26 .8-33.2 corpuscular hemoglobin) mean corpuscular HGB conc (test code = mean 33.4 g/dL 33.5 -35.5 corpuscular HGB conc) red cell distribution width (test code = red cell 13.9 % 12.0-15.1 distribution width) platelet count (test code = platelet count) 371 K/mm3 165- 353 mean platelet volume (test code = mean platelet 6.1 fL 7.5-10.6 volume) neutrophils % (test code = neutrophils %) 74.2 % 43.2-7 1.5 lymph % (test code = lymph %) 19.3 % 16.8-43.4 mono % (test code = mono %) 5.4 % 4.6-12.4 eos % (test code = eos %) 0.8 % 0.7-7.8 baso % (test code = baso %) 0.3 % 0.2-1.2 neutrophil # (test code = neutrophil #) 7.1 K/mm3 1.9-7.2 lymph # (test code = lymph #) 1.8 K/mm3 1.1-2.7 mono # (test code = mono #) 0.5 K/mm3 0.3-0.8 eosinophil # (test code = eosinophil #) 0.1 K/mm3 0.0-0.5 baso # (test code = baso #) 0.0 K/mm3 0.0-0.1 Blood leukocytes automated count (number/volume)2020-01-18 13:40:00 Test Item Value Reference Range Comments White Blood Count (test code = 6690-2) 9.6 3.6-11.1 Blood erythrocytes automated count (number/volume)2020-01-18 13:40:00 Test Item Value Reference Range Comments Red Blood Count (test code = 789-8) 4.21 3.69-4.88 Automated erythrocyte mean corpuscular [id number] 13:40:00 Test Item Value Reference Range Comments Mean Corpuscular Volume (test code = 787-2) 93.3 79.3 -94.8 Automated erythrocyte mean corpuscular hemoglobin (mass per erythrocyte) 2020-01-18 13:40:00 Test Item Value Reference Range Comments Mean Corpuscular Hemoglobin (test code = 785-6) 31.2 26.8-33.2 Automated erythrocyte mean corpuscular hemoglobin concentration measurement (mass/volume)2020-01-18 13:40:00 Test Item Value Reference Range Comments Mean Corpuscular Hemoglobin Concent (test code = 33.4 33.5-35.5 786-4) Automated erythrocyte distribution width [id number] 13:40:00 Test Item Value Reference Range Comments Red Cell Distribution Width (test code = 788-0) 13.9 12.0-15.1 Automated blood platelet count (count/volume)2020-01-18 13:40:00 Test Item Value Reference Range Comments Platelet Count (test code = 777-3) 371 165-353 Automated blood platelet mean volume [id number] 13:40:00 Test Item Value Reference Range Comments Mean Platelet Volume (test code = 52051-2) 6.1 7.5-1 0.6 Automated blood neutrophil count as percentage of total toqdvuqetg2587-06-08 13:40:00 Test Item Value Reference Range Comments Neutrophils (%) (Auto) (test code = 770-8) 74.2 43.2- 71.5 Automated blood lymphocyte count as percentage of total [id number] 13:40:00 Test Item Value Reference Range Comments Lymphocytes (%) (Auto) (test code = 736-9) 19.3 16.8- 43.4 Automated blood monocyte count as percentage of total [id number] 13:40:00 Test Item Value Reference Range Comments Monocytes (%) (Auto) (test code = 5905-5) 5.4 4.6-12 .4 Automated blood eosinophil count as percentage of total [id number] 13:40:00 Test Item Value Reference Range Comments Eosinophils (%) (Auto) (test code = 713-8) 0.8 0.7-7 .8 Automated blood basophil count as percentage of total [id number] 13:40:00 Test Item Value Reference Range Comments Basophils (%) (Auto) (test code = 706-2) 0.3 0.2-1.2 Blood neutrophils automated count (number/volume)2020-01-18 13:40:00 Test Item Value Reference Range Comments Neutrophils # (Auto) (test code = 751-8) 7.1 1.9-7.2 Automated blood lymphocyte count (number/volume)2020-01-18 13:40:00 Test Item Value Reference Range Comments Lymphocytes # (Auto) (test code = 731-0) 1.8 1.1-2.7 Blood monocytes automated count (number/volume)2020-01-18 13:40:00 Test Item Value Reference Range Comments Monocytes # (Auto) (test code = 742-7) 0.5 0.3-0.8 Automated blood eosinophil [id number] 13:40:00 Test Item Value Reference Range Comments Eosinophils # (Auto) (test code = 711-2) 0.1 0.0-0.5 Automated blood basophil count (count/volume)2020-01-18 13:40:00 Test Item Value Reference Range Comments Basophils # (Auto) (test code = 704-7) 0.0 0.0-0.1 Total [id number] 13:40:00 Test Item Value Reference Range Comments Total Bilirubin (test code = UPQ5239) 0.4 0.1-1.2 Total protein [id number] 13:40:00 Test Item Value Reference Range Comments Total Protein (test code = 2885-2) 6.8 6.0-8.3 [id number] 13:40:00 Test Item Value Reference Range Comments Albumin (test code = ZZV8426) 4.2 3.2-5.2 Plasma globulin measurement (mass/volume)2020-01-18 13:40:00 Test Item Value Reference Range Comments Globulin (test code = 08417-8) 2.6 2.6-4.6 Albumin to globulin [id number] 13:40:00 Test Item Value Reference Range Comments Albumin/Globulin Ratio (test code = 353687) 1.6 1.1- 2.5 AST (SGOT) ser/diux8466-20-01 13:40:00 Test Item Value Reference Range Comments Aspartate Amino Transf (AST/SGOT) (test code = 14 5 -34 70819048) Alkaline aawsvlnkpkn6616-04-59 13:40:00 Test Item Value Reference Range Comments Alkaline Phosphatase (test code = 96901721) 65 40-1 50 ALT (SGPT) ser/[id number] 13:40:00 Test Item Value Reference Range Comments Alanine Aminotransferase (ALT/SGPT) (test code = 17 0-55 1742-6) Comprehensive metabolic 2000 panel - Serum or [id number] 16:53:00 Test Item Value Reference Range Comments sodium (test code = sodium) 141 mmol/L 137-144 potassium (test code = potassium) 3.9 mmol/L 3.1-5.1 chloride (test code = chloride) 105 mmol/L 101-110 carbon dioxide (test code = carbon dioxide) 23 mmol/L 23-3 1 glucose (test code = glucose) 103 mg/dL 70-105 BUN (test code = BUN) 13.0 mg/dL 9.8-20.1 creatinine (test code = creatinine) 0.84 mg/dL 0.57-1.11 anion gap (test code = anion gap) 17 mmol/L 7-16 calcium (test code = calcium) 9.8 mg/dL 8.4-10.2 total bilirubin (test code = total bilirubin) 0.4 mg/dL 0. 1-1.2 total protein (test code = total protein) 7.2 g/dL 6.0-8. 3 albumin (test code = albumin) 4.3 g/dL 3.2-5.2 globulin (test code = globulin) 2.9 g/dL 2.6-4.6 A/G ratio (test code = A/G ratio) 1.5 g/dL 1.1-2.5 AST (test code = AST) 21 U/L 5-34 alkaline phosphatase (test code = alkaline 134 U/L 40-15 0 phosphatase) ALT (test code = ALT) 49 U/L 0-55 Comprehensive metabolic 2000 panel - Serum or [id number] 16:53:00 Test Item Value Reference Range Comments sodium (test code = sodium) 141 mmol/L 137-144 potassium (test code = potassium) 3.9 mmol/L 3.1-5.1 chloride (test code = chloride) 105 mmol/L 101-110 carbon dioxide (test code = carbon dioxide) 23 mmol/L 23-3 1 glucose (test code = glucose) 103 mg/dL 70-105 BUN (test code = BUN) 13.0 mg/dL 9.8-20.1 creatinine (test code = creatinine) 0.84 mg/dL 0.57-1.11 anion gap (test code = anion gap) 17 mmol/L 7-16 calcium (test code = calcium) 9.8 mg/dL 8.4-10.2 total bilirubin (test code = total bilirubin) 0.4 mg/dL 0. 1-1.2 total protein (test code = total protein) 7.2 g/dL 6.0-8. 3 albumin (test code = albumin) 4.3 g/dL 3.2-5.2 globulin (test code = globulin) 2.9 g/dL 2.6-4.6 A/G ratio (test code = A/G ratio) 1.5 g/dL 1.1-2.5 AST (test code = AST) 21 U/L 5-34 alkaline phosphatase (test code = alkaline 134 U/L 40-15 0 phosphatase) ALT (test code = ALT) 49 U/L 0-55 Comprehensive metabolic 2000 panel - Serum or [id number] 16:53:00 Test Item Value Reference Range Comments sodium (test code = sodium) 141 mmol/L 137-144 potassium (test code = potassium) 3.9 mmol/L 3.1-5.1 chloride (test code = chloride) 105 mmol/L 101-110 carbon dioxide (test code = carbon dioxide) 23 mmol/L 23-3 1 glucose (test code = glucose) 103 mg/dL 70-105 BUN (test code = BUN) 13.0 mg/dL 9.8-20.1 creatinine (test code = creatinine) 0.84 mg/dL 0.57-1.11 anion gap (test code = anion gap) 17 mmol/L 7-16 calcium (test code = calcium) 9.8 mg/dL 8.4-10.2 total bilirubin (test code = total bilirubin) 0.4 mg/dL 0. 1-1.2 total protein (test code = total protein) 7.2 g/dL 6.0-8. 3 albumin (test code = albumin) 4.3 g/dL 3.2-5.2 globulin (test code = globulin) 2.9 g/dL 2.6-4.6 A/G ratio (test code = A/G ratio) 1.5 g/dL 1.1-2.5 AST (test code = AST) 21 U/L 5-34 alkaline phosphatase (test code = alkaline 134 U/L 40-15 0 phosphatase) ALT (test code = ALT) 49 U/L 0-55 Erythrocyte sedimentation [id number] 15:41:00 Test Item Value Reference Range Comments erythrocyte sedimentation rate (test code = 21 mm/HR 0-30 erythrocyte sedimentation rate) Erythrocyte sedimentation [id number] 15:41:00 Test Item Value Reference Range Comments erythrocyte sedimentation rate (test code = 21 mm/HR 0-30 erythrocyte sedimentation rate) Erythrocyte sedimentation [id number] 15:41:00 Test Item Value Reference Range Comments erythrocyte sedimentation rate (test code = 21 mm/HR 0-30 erythrocyte sedimentation rate) CBC w/ [id number] 14:58:00 Test Item Value Reference Range Comments white blood count (test code = white blood count) 8.2 K/mm3 3.6-11.1 red blood count (test code = red blood count) 4.03 M/uL 3. 69-4.88 hemoglobin (test code = hemoglobin) 13.3 g/dL 11.4-14.4 hematocrit (test code = hematocrit) 40.0 % 33.3-41.4 mean corpuscular volume (test code = mean 99.4 fL 79.3-9 4.8 corpuscular volume) mean corpuscular hemoglobin (test code = mean 33.0 pg 26 .8-33.2 corpuscular hemoglobin) mean corpuscular HGB conc (test code = mean 33.2 g/dL 33.5 -35.5 corpuscular HGB conc) red cell distribution width (test code = red cell 13.1 % 12.0-15.1 distribution width) platelet count (test code = platelet count) 412 K/mm3 165- 353 mean platelet volume (test code = mean platelet 6.5 fL 7.5-10.6 volume) neutrophils % (test code = neutrophils %) 75.8 % 43.2-7 1.5 lymph % (test code = lymph %) 18.9 % 16.8-43.4 mono % (test code = mono %) 4.8 % 4.6-12.4 eos % (test code = eos %) 0.0 % 0.7-7.8 baso % (test code = baso %) 0.5 % 0.2-1.2 neutrophil # (test code = neutrophil #) 6.2 K/mm3 1.9-7.2 lymph # (test code = lymph #) 1.5 K/mm3 1.1-2.7 mono # (test code = mono #) 0.4 K/mm3 0.3-0.8 eosinophil # (test code = eosinophil #) 0.0 K/mm3 0.0-0.5 baso # (test code = baso #) 0.0 K/mm3 0.0-0.1 CBC w/ [id number] 14:58:00 Test Item Value Reference Range Comments white blood count (test code = white blood count) 8.2 K/mm3 3.6-11.1 red blood count (test code = red blood count) 4.03 M/uL 3. 69-4.88 hemoglobin (test code = hemoglobin) 13.3 g/dL 11.4-14.4 hematocrit (test code = hematocrit) 40.0 % 33.3-41.4 mean corpuscular volume (test code = mean 99.4 fL 79.3-9 4.8 corpuscular volume) mean corpuscular hemoglobin (test code = mean 33.0 pg 26 .8-33.2 corpuscular hemoglobin) mean corpuscular HGB conc (test code = mean 33.2 g/dL 33.5 -35.5 corpuscular HGB conc) red cell distribution width (test code = red cell 13.1 % 12.0-15.1 distribution width) platelet count (test code = platelet count) 412 K/mm3 165- 353 mean platelet volume (test code = mean platelet 6.5 fL 7.5-10.6 volume) neutrophils % (test code = neutrophils %) 75.8 % 43.2-7 1.5 lymph % (test code = lymph %) 18.9 % 16.8-43.4 mono % (test code = mono %) 4.8 % 4.6-12.4 eos % (test code = eos %) 0.0 % 0.7-7.8 baso % (test code = baso %) 0.5 % 0.2-1.2 neutrophil # (test code = neutrophil #) 6.2 K/mm3 1.9-7.2 lymph # (test code = lymph #) 1.5 K/mm3 1.1-2.7 mono # (test code = mono #) 0.4 K/mm3 0.3-0.8 eosinophil # (test code = eosinophil #) 0.0 K/mm3 0.0-0.5 baso # (test code = baso #) 0.0 K/mm3 0.0-0.1 CBC w/ [id number] 14:58:00 Test Item Value Reference Range Comments white blood count (test code = white blood count) 8.2 K/mm3 3.6-11.1 red blood count (test code = red blood count) 4.03 M/uL 3. 69-4.88 hemoglobin (test code = hemoglobin) 13.3 g/dL 11.4-14.4 hematocrit (test code = hematocrit) 40.0 % 33.3-41.4 mean corpuscular volume (test code = mean 99.4 fL 79.3-9 4.8 corpuscular volume) mean corpuscular hemoglobin (test code = mean 33.0 pg 26 .8-33.2 corpuscular hemoglobin) mean corpuscular HGB conc (test code = mean 33.2 g/dL 33.5 -35.5 corpuscular HGB conc) red cell distribution width (test code = red cell 13.1 % 12.0-15.1 distribution width) platelet count (test code = platelet count) 412 K/mm3 165- 353 mean platelet volume (test code = mean platelet 6.5 fL 7.5-10.6 volume) neutrophils % (test code = neutrophils %) 75.8 % 43.2-7 1.5 lymph % (test code = lymph %) 18.9 % 16.8-43.4 mono % (test code = mono %) 4.8 % 4.6-12.4 eos % (test code = eos %) 0.0 % 0.7-7.8 baso % (test code = baso %) 0.5 % 0.2-1.2 neutrophil # (test code = neutrophil #) 6.2 K/mm3 1.9-7.2 lymph # (test code = lymph #) 1.5 K/mm3 1.1-2.7 mono # (test code = mono #) 0.4 K/mm3 0.3-0.8 eosinophil # (test code = eosinophil #) 0.0 K/mm3 0.0-0.5 baso # (test code = baso #) 0.0 K/mm3 0.0-0.1 [id number] 09:11:[address] [id number] Patient: ONIEL AVILA : 1955 Sex: F Address: [address] [place] [address] [place] [address] Unit #: [id number] SEQ #: [id number] Location: [address] [place] [address] Room #: 378-P Ordering: SUZI HEAD PA-C Diagnosis: E6601/MORBID OBESITY/K219/GERD -- -- EXAM DESCRIPTION: GASTROGRAFIN OR H2O SOLU SWALLOW REASON FOR STUDY: Morbid obesity, Gerd, S/P Laparoscopic Sleeve Gastrectomy DATE/TIME: 08/16/2016 8:24 AM COMPARISON: None TECHNIQUE: A limited single contrast MD-Gastroview swallow was performed for evaluation of laparoscopic gastric sleeve surgical site, utilizing fluoroscopy guidance. Fluoroscopic images were acquired and stored on PACS for review. ? FINDINGS: [employer] upright abdomen: Normal bowel gas pattern. No air-fluid levels identified. Clear lung bases. Surgical clips in the right upper quadrant from cholecystectomy. The patient was brought into the fluoroscopy suite and placed erect on the fluoroscopy table. The patient was given 20 ml of full- strength MD-Gastroview contrast to swallow for the study. Evaluation of the gastric surgical site was performed. Contrast passes through the distal esophagus, gastric pouch, pylorus and duodenum with no obstruction or leak. Surgical site appears unremarkable. FLUOROSCOPY TIME: 0.4 minutes? PATIENT DOSE: 28.99 mGy IMPRESSION: NO LEAKS OR OBSTRUCTIONS IDENTIFIED ABOVE. ? Preliminary signature by: Puja Crum MD Final report electronically signed by: Puja Crum MD Signed by: PUJA CRUM II, MD 08/16/16 [id number] 15:38:[address] [id number] Patient: ONIEL AVILA : 1955 Sex: F Address: [address] [place] [address] [place] [address] Unit #: [id number] REQ SEQ #: [id number] Location: LAB Room #: Ordering: INES ADAM MD Diagnosis: E6601/[id number]/[id number]/[id number]/[id number] CHEST 2 VIEWS PA ANDLATERAL History: E6601/Q97504/I20682/[id number]/[id number] E6601/B46532/S35129/[id number]/[id number] Two views of the chest were obtained. The heart is normal. The lungs are clear. Vascularity is normal. Bony thorax is normal. There is no pneumothorax. Impression: No active disease. Final report electronically signed by: Puja Crum MD Signed by: PUJA CRUM II, MD 05/17/16 1534 Assessments Condition Name Status Diagnosis Date Treating Clinici an Pain of left hip joint Active 2020-06-06 14:40:26 Trochanteric bursitis of left hip Active 2020-06-06 14: 40:34 History of right total knee replacement Active 15:18:29 Aftercare Active 2020-03-15 09:17:54 Knee pain Active 2020-03-11 10:46:10 Stiffness of right knee Active 2020-03-11 10:46:10 Knee pain Active 2020-03-09 12:14:16 Stiffness of right knee Active 2020-03-09 12:14:16 Pain in right knee Active 2020-02-26 09:08:37 Knee pain Active 2020-02-26 09:08:46 Stiffness of right knee Active 2020-02-26 09:09:03 History of right total knee replacement Active 14:44:45 Aftercare Active 2020-02-16 07:39:18 Knee pain Active 2019-10-05 08:28:23 Osteoarthritis of knee Active 2019-10-05 08:28:24 Knee pain Active 2019-08-19 08:50:46 Osteoarthritis of knee Active 2019-08-19 08:50:46 Knee pain Active 2019-08-10 08:17:09 Osteoarthritis of knee Active 2019-08-10 08:17:09 Knee pain Active 2019-08-03 08:43:24 Osteoarthritis of knee Active 2019-08-03 09:28:06 Osteoarthritis of knee Active 2018-11-12 15:34:57 Knee pain Active 2018-11-12 17:16:12 Osteoarthritis of knee Active 2018-11-05 09:20:36 Knee pain Active 2018-11-05 09:20:37 Knee pain Active 2018-10-31 09:31:04 Osteoarthritis of knee Active 2018-10-31 12:48:07 Pain of left hip joint Active 2018-10-16 10:49:41 Aftercare Active 2018-10-16 12:04:10 Encounters Start End Encounter Admission Attending Care Care Encounter Date/Time Date/Time Type Type Clinicians Facility Department ID 2020-01-29 Inpatient EL JAMIE, [facility] [id number] 09:30:00 PARKER 65 2010-02-01 Inpatient KATHARINE ADAM, [facility] [id number] 00:00:00 INES 05 2020-06-06 2020-06-06 Parker Harman [id number] 00:00:00 00:00:00 MD Jamie: [facility] [address] [place] [address], Ph. 2020-05-29 2020-05-29 Emergency ED GAGE, [facility] [id number] 17:17:00 21:11:00 BLANKA 63 2020-03-14 2020-03-14 Parker Harman [id number] 00:00:00 00:00:00 MD Jamie: [facility] [address] [place] [address], Ph. 2020-03-11 2020-03-11 Meir Reyest [id number] 00:00:00 00:00:00 Georges, PT: [facility] [address] [place] [address], Ph. 2020-03-09 2020-03-09 Meir Harman [place] 7675 00:00:00 00:00:00 Georges, PT: [facility] [address] [place] [address], Ph. 2020-02-26 2020-02-26 Meir Browneret [place] 7675 00:00:00 00:00:00 Georges, PT: [facility] [address] [place] [address], Ph. 2020-02-15 2020-02-15 Parker Harman [place] [id number] 00:00:00 00:00:00 MD Jamie: [facility] [address] [place] [address], Ph. 2020-02-03 2020-02-04 [id number] 08:19:00 15:45:00 PARKER Alatorre 2019-10-05 2019-10-05 Parker Alfonso [place] [id number] 00:00:00 00:00:00 MD Jamie: [facility] [address] [place] [address], Ph. 2019-08-19 2019-08-19 Parker Browneret [place] [id number] 019 00:00:00 00:00:00 MD Jamie: [facility] Surgical [address] [place] [address], Ph. 2019-08-10 2019-08-10 Parker Browneret [place] [id number] 019 00:00:00 00:00:00 MD Jamie: Surgical Surgical [address] [facility], [address], [place] [address], Ph. 2019-08-03 2019-08-03 Parker Reyest [id number] 019 00:00:00 00:00:00 MD Jamie: Surgical Surgical [address] [facility] [address], [place] [address], Ph. 2018-11-12 2018-11-12 Toan Browneret [id number] 19 00:00:00 00:00:00 Mendoza: [address] [facility] [address] [facility] [place] [address], Ph. 2018-11-05 2018-11-05 Toan Browneret [id number] 19 00:00:00 00:00:00 Mendoza: [address] [facility] [address] [place] [address], Ph. 2018-10-31 2018-10-31 Toan Browneret [id number] 19 00:00:00 00:00:00 Mendoza: [address] [facility] [address] [facility] [place] [address], Ph. 2018-10-16 2018-10-16 Outpatient KATHARINE JAMIE [facility] [id number] 13:07:00 13:07:00 PARKER 80 2018-10-16 2018-10-16 Parker Reyest [id number] 00:00:00 00:00:00 MD Jamie: Surgical Surgical [address] [facility] [place] [address], Ph. 2016-08-15 2016-08-16 Inpatient KATHARINE ADAM [facility] [id number] 12:40:00 13:37:00 INES 35 2016-07-05 2016-07-05 Outpatient KATHARINE AYALA [facility] [id number] 14:40:00 14:40:00 PARKER 26 2016-05-17 2016-05-17 [facility] [id number] 10:33:00 10:33:00 INES 12 2016-05-15 2016-05-15 [facility] [id number] 16:21:00 16:21:00 INES 58 Immunizations Ordered Immunization Filled Immunization Date Status Commen ts Refusal Reason Name Name influenza, 2019-06-09 Completed injectable, 00:00:00 quadrivalent influenza, 2018-06-09 Completed unspecified 00:00:00 formulation Tdap 2014-09-09 Completed 00:00:00 rubella/mumps 2012-09-09 Completed 00:00:00 measles 2012-09-09 Completed 00:00:00 Pneumococcal 2012-05-10 Completed Conjugate, 00:00:00 unspecified formulation Hep B, adult 1999-09-09 Completed 00:00:00 Payers Payer Name Policy Type Policy Number Effective Date Expiration D ate Social History Social Habit Start Date Stop Date Comments N - QUIT [id number] 17:15:00 Y - SOCIALLY 2016-08-15 17:15:00 Smoking Status Start Date Stop Date Former smoker 2020-05-29 17:49:00 Former Smoker Social History Observation Description Sex Female Vital Signs Vital Name Observation Time Observation Value Comments Height 2020-06-06 00:00:00 60 [in_i] WEIGHT 2020-05-29 17:49:00 103.4000 kg HEIGHT 2020-05-29 17:49:00 152.054169 cm Height 2020-03-14 00:00:00 60 [in_i] BMI (Body Mass Index) 2020-03-14 00:00:00 43 kg/m2 Body Weight 2020-03-14 00:00:00 220 [lb_av] Height 2020-02-15 00:00:00 60 [in_i] BMI (Body Mass Index) 2020-02-15 00:00:00 43 kg/m2 Body Weight 2020-02-15 00:00:00 220 [lb_av] WEIGHT 2020-02-03 13:21:00 102.0000 kg HEIGHT 2020-02-03 13:21:00 152.879322 cm WEIGHT 2020-01-25 11:25:00 97.7 kg HEIGHT 2020-01-25 11:25:00 152.687775 cm BP Diastolic 2019-10-05 00:00:00 86 mm[Hg] Height 2019-10-05 00:00:00 60 [in_i] BMI (Body Mass Index) 2019-10-05 00:00:00 43.1 kg/m2 BP Systolic 2019-10-05 00:00:00 155 mm[Hg] Body Weight 2019-10-05 00:00:00 220.8 [lb_av] Height 2019-08-19 00:00:00 60 [in_i] Height 2019-08-10 00:00:00 60 [in_i] BP Diastolic 2019-08-03 00:00:00 81 mm[Hg] Height 2019-08-03 00:00:00 60 [in_i] BP Systolic 2019-08-03 00:00:00 154 mm[Hg] Height 2018-11-12 00:00:00 60 [in_i] Height 2018-11-05 00:00:00 60 [in_i] BMI (Body Mass Index) 2018-11-05 00:00:00 40.2 kg/m2 Body Weight 2018-11-05 00:00:00 206 [lb_av] Height 2018-10-31 00:00:00 60 [in_i] BMI (Body Mass Index) 2018-10-31 00:00:00 40.2 kg/m2 Body Weight 2018-10-31 00:00:00 206 [lb_av] BP Diastolic 2018-10-16 00:00:00 85 mm[Hg] Height 2018-10-16 00:00:00 60 [in_i] BMI (Body Mass Index) 2018-10-16 00:00:00 40.2 kg/m2 BP Systolic 2018-10-16 00:00:00 139 mm[Hg] Body Weight 2018-10-16 00:00:00 206 [lb_av] WEIGHT 2016-08-15 12:40:00 94.500 kg HEIGHT 2016-08-15 12:40:00 152.952668 cm WEIGHT 2016-08-15 10:30:00 95.1 kg HEIGHT 2016-08-15 10:30:00 152.894196 cm Weight 2020-05-29 17:49:00 227.96 [lb_av] BMI (Body Mass Index) 2020-05-29 17:49:00 44.0 kg/m2 Weight 2020-02-03 13:21:00 224.87 [lb_av] BMI (Body Mass Index) 2020-02-03 13:21:00 43.0 kg/m2 Hospital Discharge Instructions 1. Pain of left hip joint Robaxin-750 750 mg tablet 2. Trochanteric bursitis of left hip Discussion Note: None recorded. Patient educational handouts: No information available.1. History of right total knee replacement 2. Aftercare Discussion Note: None recorded. Patient educational handouts: No information available.Additional Instructions Discharge Instructions Nursing Discharge Assessment Cognitive Status: Alert,Appropriate, Awake Functional Status: Ambulates Independently, Eats Independently, Bathes Independently, Dresses Independently, Toilets Independently, Medicates Self Indepen., Appropriate for Age Is your patient leaving the hospital with any of these: None Plan of Care #1 Problem:: Total Knee Arthroplasty Plan:: Take medication as prescribed Attend follow up appointment and physical therapy Monitor incision site Goal:: Improved mobility with less discomfort Level Of Pain At Discharge: 3 Pain Scale Does The Pt Understand How To Manage Their Pain At Home?: Yes Pain Management Plan of Care: TakeMedOnlyAsPrescribed, ApplyHeat [id number] , [id number], PhysicalTherapyAsDirected, IncreaseActivityAsTolerat, Ensure Adequate Hydration, Ensure Adequate Sleep, Monitor for Constipation, NotifyMDForIncreasingPain Does Patient Have Valuables In Possession: Yes Valuables Returned Comment: phone, clothing purse Physician Documentation1. Knee pain 2. Osteoarthritis of knee knee arthritis: care instructions Discussion Note: None recorded.1. Knee pain XR, knee, 4 or more view 2. Osteoarthritis of knee knee arthritis: care instructions Discussion Note: None recorded.1. Pain of left hip joint XR, hip, unilateral, 2 or 3 view CMP, serum or plasma CBC w/ diff ESR (erythrocyte sedimentation rate), blood 2. Aftercare Discussion Note: None recorded. Patient educational handouts: No information available.
== END ==
LOC: OD 07:37
PROVIDERS: ATTEND Internal Medicine Pulmonary Disease
DX: J43.2 Centrilobular emphysema (principal); Z68.41 Body mass index [BMI] 40.0-44.9, adult
CPT/HCPCS: 71046; 82803

== ENCOUNTER 2020-08-28 10:17 | Emergency (ER) | payer BC, MEDICARE ==
[2020-08-28 10:35] VITALS: BP 154/92
--- NOTE | 2020-08-28 11:38 | RADIOLOGY REPORT (SQ) ---
EXAM DESCRIPTION: HIP LEFT AP/LATERAL IMAGES COMPLETED DATE/TIME: 08/28/2020 11:02 am REASON FOR STUDY: fall/ pain COMPARISON: 03/25/2015. NUMBER OF VIEWS: Two views. TECHNIQUE: AP pelvis and additional frog legview of the left hip. LIMITATIONS: None. FINDINGS: MINERALIZATION: Normal. LEFT HIP: No fracture or dislocation. Hip prosthesis and proximal femoral hardware. RIGHT HIP: No fracture or dislocation. Surgical hardware. Limited views. PUBIS AND ISCHIUM: No fracture. PELVIS: No fracture. SACRUM: No fracture or dislocation. No worrisome bone lesions. LOWER LUMBAR SPINE: No fracture or dislocation. No worrisome bone lesions. No significant disc disea se. SOFT TISSUES: No findings. OTHER: No other significant finding. IMPRESSION: BILATERAL HARDWARE. NO RADIOGRAPHIC EVIDENCE OF ACUTE INJURY. TECHNICAL DOCUMENTATION: JOB ID: [id number] 2010 [employer]- All Rights Reserved Reading location - IP/workstation name: [email or web address]
--- NOTE | 2020-08-28 12:23 | ER Document Report ---
ED General - General Chief Complaint: Hip Pain Stated Complaint: HIP PAIN Time Seen by Provider: 08/28/20 12:08 Primary Care Provider: STEVE HART MD [Primary Care Provider] - Follow up as needed TRAVEL OUTSIDE OF THE [place] IN LAST 30 DAYS: No - HPI Notes: Chief complaint: Left hip pain History of present illness: 64-year-old female who has had both hips replaced in the past a number of years ago when she was living in [facility] seen today because of increasing pain in left hip following a fall last week. Patient states she was walking across a lawn when she felt something pop in her lower back of her left hip and she lost her balance and went down taking most of the force of her weight on her left hip. She has been extremely sore and stiff since then but has been bearing weight normally. She primarily complains of pain when she is trying to get sleep at night especially if she rolls onto her left side. She is trying to arrange an orthopedic follow-up with Dr. Wills in [facility] and she is being treated with multiple nonnarcotic medications by her primary care physician Dr. Marco A Pope. She has allergies to bacitracin and sulfa. She is presently taking Norvasc for hypertension. - Related Data Allergies/Adverse Reactions: bacitracin [Bacitracin] Allergy (Intermediate, Verified 08/28/20 10:48) Sulfa (Sulfonamide Antibiotics) Allergy (Intermediate, Verified 08/28/20 10:48) Past Medical History - General Information source: Patient, [facility] Records - Social History Smoking Status: Former Smoker Chew tobacco use (# tins/day): No Drug Abuse: None Lives with: Alone Family History: COPD - Past Medical History Cardiac Medical History: Reports: Hx Hypercholesterolemia, Hx Hypertension Denies: Hx Heart Attack Pulmonary Medical History: Reports: Hx Bronchitis, Hx COPD, Other - Past history of spontaneous pneumothorax Denies: Hx Asthma Neurological Medical History: Denies: Hx Cerebrovascular Accident, Hx Seizures Endocrine Medical History: Denies: Hx Diabetes Mellitus Type 1, Hx Diabetes Mellitus Type 2 Renal/ Medical History: Denies: Hx Peritoneal Dialysis GI Medical History: Reports: Hx Gastroesophageal Reflux Disease. Denies: Hx Hepatitis, Hx Hiatal Hernia, Hx Ulcer Musculoskeletal Medical History: Reports Hx Arthritis, Reports Hx Musculoskeletal Deformity, Reports Hx Musculoskeletal Trauma Skin Medical History: Reports Hx Cellulitis Traumatic Medical History: Reports: Hx Fractures - femur Infectious Medical History: Denies: Hx Hepatitis Past Surgical History: Reports: Hx Cholecystectomy, Hx Hysterectomy, Hx Orthopedic Surgery - left hip, left knee, femur. Denies: Hx Mastectomy, Hx Open Heart Surgery, Hx Pacemaker - Immunizations Immunizations up to date: Yes Hx Diphtheria, Pertussis, Tetanus Vaccination: Yes Review of Systems - Review of Systems Notes: Constitutional: Negative for fever. HENT: Negative for sore throat. Eyes: Negative for visual changes. Cardiovascular: Negative for chest pain. Respiratory: Negative for shortness of breath. Gastrointestinal: Negative for abdominal pain, vomiting or diarrhea. Genitourinary: Negative for dysuria. Musculoskeletal: As per HPI. Skin: Negative for rash. Neurological: Negative for headaches, weakness or numbness. 10 point ROS negative except as marked above and in HPI. Physical Exam - Vital signs Vitals: Temp Pulse Resp BP Pulse Ox 97.8 F 97 18 154/92 H 99 08/28/20 10:34 08/28/20 10:34 08/28/20 10:34 08/28/20 10:34 08/28/20 10:34 - Notes Notes: GENERAL: Female patient approximately stated age who is ambulating without assistance but appearing moderately uncomfortable favoring her left hip area. SKIN: Good turgor no rashes. HEAD: Normocephalic atraumatic. EYES: PERRLA. EOMI. Conjunctivae and sclerae clear. EARS: CANALS AND TMS CLEAR. NOSE: CLEAR. MOUTH: Moist mucosa. Good dentition. No stridor or edema. No drooling. NECK: Supple. No masses or thyromegaly. No adenopathy. Carotids 2+ without bruits. No JVD. BACK: Symmetrical without tenderness. CHEST: Respirations unlabored. Breath sounds clear and symmetrical. HEART: Regular rhythm. No murmur gallop or rub. ABDOMEN: Moderately obese. Soft nontender without masses, organomegaly or rebound. Bowel sounds normally active. No bruits. GENITALIA: Deferred. EXTREMITIES: Patient has surgical scarring over both hip joints. She is mode rately tender over the olecranon area on the left side. There is no visible ecchymosis no palpable crepitus. No edema. No calf tenderness. Cap refill less than 1.5 seconds. Dorsalis pedis and posterior tibial pulses 3+ and symmetrical. NEUROLOGICAL: GCS 15. Alert and oriented x3. Normal gait. Fluent speech. Cranial nerves II through XII intact. Sensorimotor and cerebellar normal. Normal tone. PSYCHIATRIC: Appropriate affect. Course - Re-evaluation Re-evalutation: 08/28/20 12:24 I think this lady has some contusion and possibly trochanteric bursitis on the left. Her plain films did not show any displacement of hardware any fracture. I am going to give her some Percocet short-term and have her continue her other meds and use ice packs and follow-up with orthopedics. Findings, clinical impression and plan of treatment have been discussed with patient/family. Understanding of current findings and recommendations has been acknowledged by them and there is agreement regarding disposition and follow-up. - Vital Signs Vital signs: Temp Pulse Resp BP Pulse Ox 97.8 F 97 18 154/92 H 99 08/28/20 10:34 08/28/20 10:34 08/28/20 10:34 08/28/20 10:34 08/28/20 10:34 - Laboratory Results Critical Laboratory Results Reviewed: No Critical Results - Radiology Results Radiology Results Interpreted: 08/28/20 12:22 Hip X-Ray 08/28/20 10:48 IMPRESSION: BILATERAL HARDWARE. NO RADIOGRAPHIC EVIDENCE OF ACUTE INJURY. Critical Radiology Results Reviewed: No Critical Results Discharge - Discharge Clinical Impression: Trochanteric bursitis, left hip Condition: Stable Disposition: HOME, SELF-CARE Additional Instructions: Ice packs as needed. Continue usual medications. Use Percocet as directed for supplemental pain relief particularly at night. Schedule a visit with orthopedics in the near future as we have discussed. Return here as needed for new or worsening symptoms. Prescriptions: Oxycodone HCl/Acetaminophen [Percocet 5-325 mg Tablet] 1 tab PO Q6H PRN #15 tab PRN Reason: Pain Referrals: STEVE HART MD [Primary Care Provider] - Follow up as needed
== END 2020-08-28 13:16 | disposition home or self-care (01) ==
LOC: ER 10:17
DX: M70.62 Trochanteric bursitis, left hip (principal); E78.00 Pure hypercholesterolemia, unspecified; I10 Essential (primary) hypertension; Z96.643 Presence of artificial hip joint, bilateral; Z90.49 Acquired absence of other specified parts of digestive tract; Z88.2 Allergy status to sulfonamides
CPT/HCPCS: 99284